=== PATIENT | female | born 1945 | race Caucasian/White ===

== ENCOUNTER 2020-03-16 13:49 | Observation (INO) | payer MEDICARE, OTHER, SELFPAY ==
[2020-03-16] VITALS (15 sets, daily range): BP systolic 138–189; BP diastolic 67–84; PULSE 68–78; RESP 11–50; TEMP 36.9; O2SAT 91–95; BMI 31.4
--- NOTE | 2020-03-16 | DI.MRI.S_ITS ---
PROCEDURE: MR STROKE Pre- and post-contrast brain MRI, non-contrast brain MR angiogram, pre- and postcontrast neck MR angiogram INDICATIONS: Weakness, aphasia suspicious for a CVA TECHNIQUE: Brain: Noncontrast axial T1 spin echo, axial T2 fast spin echo, sagittal and axial FLAIR, coronal T2 fast spin echo, axial gradient echo, axial diffusion and ADC through the brain. After the administration of contrast, axial 3D VIBE of the cranial vasculature and brain. Brain MRA: Non-contrast 3-D time of flight MR angiogram, with multiple zflderq-mztkuimgb-pihteckrjn (MIP) reformats performed. Neck MRA: Axial and sagittal TruFISP through the neck. Coronal dynamic MR angiogram during administration of contrast in the arterial and venous phases, with 3-dimenstional rmxtxob-tflzzziei-igpowyasvq (MIP) reformats constructed from subtraction images. COMPARISON: None. FINDINGS: Image quality: Degraded by motion artifact BRAIN: CSF spaces: Ventricles are normal in size and shape. Basal cisterns are patent. No extra-axial fluid collections. Brain: No intracranial bleeds or mass effects. Scattered small white matter changes, probably represent chronic microvascular ischemic disease, versus statistically less likely demyelination or other infectious, inflammatory, neurodegenerative etiology, technically nonspecific. [place]-white matter interface is normal. Diffusion weighted images show no acute ischemic insults. Brainstem appears normal. Normal intravascular flow voids are present. No abnormal intracranial enhancement. Skull and face: Calvarial marrow signal is normal. Orbits appear normal. Sinuses: Sinuses and mastoids are clear. BRAIN MR ANGIOGRAM: Anterior circulation: Intracranial internal carotid arteries are normal in size and enhancement. The flow within the paired anterior cerebral arteries is normal and symmetric. The flow within the middle cerebral arteries is normal and symmetric. The anterior communicating artery is seen. No stenoses, occlusions, or aneurysms. Posterior circulation: Dominant right vertebral artery incidentally noted. Basilar artery unremarkable. origin of the right [employer]. The flow within the posterior cerebral arteries is normal and symmetric. No stenoses, occlusions, or aneurysms. NECK MR ANGIOGRAM: Carotids: Great vessels demonstrate a conventional anatomy as they arise from the aortic arch. The origins of the common carotid arteries appear patent. The calibers and courses of both common carotid arteries are normal. The bifurcation regions appear normal bilaterally. The internal carotid arteries demonstrate normal course and caliber. Posterior circulation: The origins of the vertebral arteries appear patent. More superior portions of both vertebral arteries demonstrate normal course and caliber, and join to form a normal appearing basilar artery. Miscellaneous: Subclavian arteries appear patent. Pre-contrast images through the neck show no soft tissue abnormalities. IMPRESSION: BRAIN MRI: No evidence of acute ischemia. Diffuse small white matter changes, probably represent chronic microvascular ischemic disease, versus statistically less likely demyelination or other infectious, inflammatory, neurodegenerative etiology, technically nonspecific. BRAIN MR ANGIOGRAM: No intracranial focal stenosis or occlusion. NECK MR ANGIOGRAM: No hemodynamically significant internal carotid artery stenosis identified. Incidentally noted dominant right vertebral artery. Dictated by: Shin Rene M.D. on 03/17/2020 at 15:46 Approved by: Shin Rene M.D. on 03/17/2020 at 15:54
--- NOTE | 2020-03-16 13:53 | DI.CT.S_ITS ---
PROCEDURE: CT STROKE INDICATIONS: stroke vs TIA, Left facial droop, increased confusion TECHNIQUE: Noncontrast 4.5 mm thick angled axial sections acquired from the foramen magnum to the vertex, with coronal reformats. For radiation dose reduction, the following was used: automated exposure control, adjustment of mA and/or kV according to patient size. COMPARISON: None. FINDINGS: Image quality: Excellent. CSF spaces: Basal cisterns are patent. No extra-axial fluid collections. The ventricles are symmetric in size and shape. Brain: No intracranial bleeds or masses. There is cerebral volume loss for age, with resultant ventricular and sulcal prominence. There are periventricular and deep white matter chronic small vessel ischemic changes. There is intracranial internal carotid artery atherosclerosis. Skull and face: Calvarium and visualized facial bones appear intact, without suspicious lesions. Sinuses: Visualized sinuses and mastoids are clear. IMPRESSION: No trauma found, no hemorrhage or mass lesion identified. At this time there is no identified area of ischemic injury. This study fulfills neurological imaging criteria for inclusion or exclusion of acute stroke therapies based on available published neurological guidelines. Dictated by: Oc Hinson M.D. on 03/16/2020 at 14:02 Approved by: Oc Hinson M.D. on 03/16/2020 at 14:03
[2020-03-16 14:01] LABS: Add Manual Diff / Slide Review NO; Basophils Absolute Auto 0 /uL (0-100); Basophils Percent Auto 0.6 % (0-2); Eosinophils Absolute Auto 100 /uL (0-450); Eosinophils Percent Auto 1.2 % (2-4); Hematocrit 36.1 % (36-46); Hemoglobin 11.7 g/dL (12.0-16.0); Lymphocytes Absolute Auto 1200 /uL (1100-4500); Lymphocytes Percent Auto 17.8 % (25-40); Mean Corpuscular HGB Conc 32.4 % (30-36); Mean Corpuscular Volume 92.5 fL (80-100); Monocytes Absolute Auto 800 /uL (0-900); Monocytes Percent Auto 12.9 % (3-14); Neutrophils Absolute Auto 4400 /uL (1500-7000); Neutrophils Percent Auto 67.5 % (50-75); Platelet Count 330 X10^3/uL (150-400); Red Cell Distribution Width 13.7 % (11.6-14.8); White Blood Cell Count 6.5 X10^3/uL (4.5-11.0)
[2020-03-16 14:08] LABS: Prothrombin Time 11.3 SECONDS (10.1-12.7)
[2020-03-16 14:11] LABS: PTT Partial Thromboplastin Tim 31 SECONDS (26.4-36.2)
[2020-03-16 14:16] LABS: Alanine Aminotransferase 4 IU/L (<35); Albumin 4.4 g/dL (3.5-5.0); Albumin Globulin Ratio 1.4 (1.0-2.8); Alkaline Phosphatase 77 U/L (38-126); Aspartate Aminotransferase 17 IU/L (14-36); BUN Creatinine Ratio 24.5 (6-22); Bilirubin Total 0.7 mg/dL (0.2-1.3); Blood Urea Nitrogen 24 mg/dL (7-17); Carbon Dioxide 33 mmol/L (22-32); Chloride 103 mmol/L (98-107); Estimated Glomerular Filt Rate 55.5 mL/min (>60); Globulin 3.2 g/dL (1.7-4.1); Glucose 105 mg/dL (80-110); HEMOLYSIS < 15 (0-50); Potassium 4.7 mmol/L (3.4-5.1); Sodium 141 mmol/L (137-145); Total Protein 7.6 g/dL (6.3-8.2)
--- NOTE | 2020-03-16 16:22 | ED_ITS ---
HPI - Neuro Symptoms/Deficit General Chief Complaint: Neuro Symptoms/Deficit Stated Complaint: Code Stroke Time Seen by Provider: 03/16/20 13:53 Source: patient and EMS Mode of arrival: EMS Limitations: no limitations History of Present Illness HPI Narrative: 74-year-old woman from [facility], brought in by medics with reports of left facial droop and slurring speech. She has a history of Parkinson's disease and is followed by a primary care physician in [place]. Patient feels that her symptoms started yesterday with increasing overall weakness and difficulty expressing herself. She presumed it was secondary to her Parkinson's disease and did not mention it to anybody. She was seen by a caregiver this morning at 10:30 a.m. who felt that she was at her baseline as he was giving her her usual morning medications. When he checked on her at noon he felt that her speech was slurred and she had a left facial droop and 911 was called. Medics confirm significant dysarthria and facial droop she is may be able to move all extremities but complains that she is weak and feels like she could not walk. Upon arrival in the emergency room both the facial droop and the dysarthria are improving and within an hour and a half a being in the emergency department those symptoms have resolved completely. She still feels that she is overall weak and would have difficulty walking. Her exam is complic ated by her baseline Parkinson's disease and it is unclear if her mild weakness is worse. On Anticoagulants: No Related Data Home Medications Medication Instructions Recorded Confirmed acetaminophen 500 mg PO Q6H PRN 03/16/20 03/16/20 baclofen 10 mg PO TID 03/16/20 03/16/20 bupropion HCl 100 mg PO BID 03/16/20 03/16/20 carbidopa-levodopa 1 tab PO Q4H 03/16/20 03/16/20 carbidopa-levodopa 1 tab PO Q8HR PRN 03/16/20 03/16/20 carbidopa-levodopa 2 tab PO QPM 03/16/20 03/16/20 citalopram 20 mg PO DAILY 03/16/20 03/16/20 furosemide 20 mg PO DAILY 03/16/20 03/16/20 gabapentin 300 mg PO TID 11/03/20 11/03/20 levodopa 84 mg INHALATION 5XD 03/16/20 03/16/20 loratadine 10 mg PO DAILY 03/16/20 03/16/20 naproxen sodium [Aleve] 220 mg PO Q8H PRN 03/16/20 03/16/20 rotigotine 4 mg TRANSDERMAL DAILY 03/16/20 03/16/20 trimethobenzamide 300 mg PO Q8HR 03/16/20 03/16/20 Allergies Allergy/AdvReac Type Severity Reaction Status Date / Time acetaminophen [From Percocet] Allergy Verified 03/16/20 14:02 oxycodone [From Percocet] Allergy Verified 03/16/20 14:02 Review of Systems Review of Systems Narrative: Pertinent positive and negative findings as per HPI Remainder of review of systems is otherwise unremarkable for Constitutional: Fevers, chills, ENT: No sore throat, neck pain, ear pain CV: Chest pain, palpitations, dyspnea on exertion Respiratory: Cough, wheeze, dyspnea GI: Nausea, vomiting, diarrhea, change in bowel habits, black or bloody stools : Dysuria, hematuria, flank pain Skin: Rashes, nonhealing lesions Patient History Medical History Parkinsons disease (Acute) Exam Narrative Exam Narrative: General: in no acute distress. Mild dysarthria, slight left facial droop HEENT: Moist mucous membranes, normal sclera with reactive pupils, Neck: No JVD, supple Respiratory: Lungs are clear to auscultation, no wheezing no rales no rhonchi. Full and symmetrical air movement Cardiac: Regular rate and rhythm no murmurs no bruits Abdomen: Soft nontender good bowel tones, no flank pain Skin: Warm and dry, no rashes Neurologic: Parkinsonian tremor and rigidity with flat facial affect. She is able to move all extremities and in light of her baseline neurologic difficulties it is difficult to tell if she has new neurologic findings. Her right side does seem to be slightly more weak than the left side. Extremities: No trauma, well perfused Psych: Cooperative, NIH Stroke Scale/Score (NIHSS) from [email or web address] on 03/16/2020 RESULT SUMMARY: 5 points NIH Stroke Scale INPUTS: 1A: Level of consciousness ?> 0 = Alert; keenly responsive 1B: Ask month and age ?> 0 = Both questions right 1C: 'Blink eyes' & 'squeeze hands' ?> 0 = Performs both tasks 2: Horizontal extraocular movements ?> 0 = Normal 3: Visual blackburn ?> 0 = No visual loss 4: Facial palsy ?> 1 = Minor paralysis (flat nasolabial fold, smile asymmetry) 5A: Left arm motor drift ?> 0 = No drift for 10 seconds 5B: Right arm motor drift ?> 1 = Drift, but doesn't hit bed 6A: Left leg motor drift ?> 0 = No drift for 5 seconds 6B: Right leg motor drift ?> 1 = Drift, but doesn't hit bed 7: Limb Ataxia ?> 1 = Ataxia in 1 Limb 8: Sensation ?> 0 = Normal; no sensory loss 9: Language/aphasia ?> 0 = Normal; no aphasia 10: Dysarthria ?> 1 = Mild-moderate dysarthria: slurring but can be understood 11: Extinction/inattention ?> 0 = No abnormality Repeat NIH at 5:30 0 Symptoms resolved Initial Vital Signs Initial Vital Signs: Vital Signs Temperature 98.5 F 03/16/20 13:49 Pulse Rate 78 03/16/20 13:49 Respiratory Rate 20 03/16/20 13:49 Blood Pressure 189/84 H 03/16/20 13:49 Pulse Oximetry 94 03/16/20 13:49 Course Orders Ordered: ED Orders 03/16/20 13:45 Complete Blood Count AUTO DIFF Stat Comprehensive Metabolic Panel Stat Partial Thromboplastin Time Stat Prothrombin Time INR Stat 03/16/20 13:53 CT Stroke Stat Urinalysis and Microscopic Stat 03/16/20 14:00 EKG-12 Lead Stat 03/16/20 16:53 COVID19 -ED/INPAT/OR/L&D Stat Sodium Chloride (Normal Saline 0.9%) 1,000 mls @ 150 mls/hr IV CONT SAMANTHA Vital Signs Vital signs: Vital Signs - 8 hr 03/16/20 13:49 03/16/20 13:55 03/16/20 13:59 Temperature 98.5 F Pulse Rate 78 77 76 Respiratory Rate 20 50 H Blood Pressure 189/84 H 189/84 H Pulse Oximetry 94 93 93 03/16/20 14:00 03/16/20 14:30 Temperature Pulse Rate 76 74 Respiratory Rate 41 H 25 H Blood Pressure Pulse Oximetry 95 94 MDM - Neuro Symptoms/Deficit Medical Records Attestation: I reviewed the patient's medical records. Lab Data Attestation: I reviewed the patient's lab results. Result diagrams: 03/16/20 13:45 03/16/20 13:45 Labs: Lab Results 03/16/20 03/16/20 03/16/20 Range/Units 13:45 13:45 13:45 WBC 6.5 (4.5-11.0) X10^3/uL RBC 3.90 L (4.0-5.2) X10^6/uL Hgb 11.7 L (12.0-16.0) g/dL Hct 36.1 (36-46) % MCV 92.5 (80-100) fL MCH 30.0 (26-34) PG MCHC 32.4 (30-36) % RDW 13.7 (11.6-14.8) % Plt Count 330 (150-400) X10^3/uL Neut % (Auto) 67.5 (50-75) % Lymph % (Auto) 17.8 L (25-40) % [place] % (Auto) 12.9 (3-14) % Eos % (Auto) 1.2 L (2-4) % Baso % (Auto) 0.6 (0-2) % Neut # (Auto) 4400 (7542-6745) /uL Lymph # (Auto) 1200 (2798-7919) /uL [place] # (Auto) 800 (0-900) /uL Eos # (Auto) 100 (0-450) /uL Baso # (Auto) 0 (0-100) /uL PT 11.3 (10.1-12.7) SECONDS INR 1.0 (0.9-1.3) APTT 31 (26.4-36.2) SECONDS Sodium 141 (137-145) mmol/L Potassium 4.7 (3.4-5.1) mmol/L Chloride 103 (98-107) mmol/L Carbon Dioxide 33 H (22-32) mmol/L BUN 24 H (7-17) mg/dL Creatinine 0.98 (0.52-1.04) mg/dL Estimated GFR 55.5 L (>60) mL/min BUN/Creatinine Ratio 24.5 H (6-22) Glucose 105 (80-110) mg/dL Calcium 9.0 (8.4-10.2) mg/dL Total Bilirubin 0.7 (0.2-1.3) mg/dL AST 17 (14-36) IU/L ALT 4 (<35) IU/L Alkaline Phosphatase 77 (38-126) U/L Total Protein 7.6 (6.3-8.2) g/dL Albumin 4.4 (3.5-5.0) g/dL Globulin 3.2 (1.7-4.1) g/dL Albumin/Globulin Ratio 1.4 (1.0-2.8) Point of Care Testing Glucose POC [address] scan - head: Radiologist's Impression: FINDINGS: Image quality: Excellent. CSF spaces: Basal cisterns are patent. No extra-axial fluid collections. The ventricles are symmetric in size and shape. Brain: No intracranial bleeds or masses. There is cerebral volume loss for age, with resultant ventricular and sulcal prominence. There are periventricular and deep white matter chronic small vessel ischemic changes. There is intracranial internal carotid artery atherosclerosis. Skull and face: Calvarium and visualized facial bones appear intact, without suspicious lesions. Sinuses: Visualized sinuses and mastoids are clear. IMPRESSION: No trauma found, no hemorrhage or mass lesion identified. At this time there is no identified area of ischemic injury. This study fulfills neurological imaging criteria for inclusion or exclusion of acute stroke therapies based on available published neurological guidelines. Dictated by: Oc Hinson M.D. on 03/16/2020 at 14:02 ECG Data Attestation: I personally reviewed and interpreted this ECG as follows: Interpretation: Sinus rhythm at a rate of 77 Normal intervals, normal axis No acute ischemic changes MDM Narrative Medical decision making narrative: 74-year-old woman with moderately severe Parkinson's disease presents with probable stroke. Symptoms likely began yesterday however obviously worsened by noon today and have resolved by 5:00 p.m.. Because symptoms are resolving and of the diagnostic uncertainty she is not a tPA candidate She will be admitted to the hospitalist service to complete her stroke workup. There is no evidence of infection, tumors or masses in her brain or acute coron faby syndrome. She is willing to be admitted in complete stroke workup at this time. Care is reviewed with Dr. Jimenez, hospitalist who will admit the patient. Discharge Plan Departure Patient Disposition: Admitted As Inpatient Clinical Impression: Cerebrovascular accident Qualifiers: CVA mechanism: unspecified Qualified Code(s): I63.9 - Cerebral infarction, unspecified Admit Date/Time: 03/16/20 18:05 Admit Provider: Rosina Jimenez
[2020-03-16] MEDS: SODIUM CHLORIDE 0.9% 1,000 ML 150 ML IV (18:20)
--- NOTE | 2020-03-16 18:47 | PC.NURSE ---
pulled mask off patient to look for droop, notices she had food residue, wiped pt lips clean.
[2020-03-16 18:59] LABS: COVID19 -Nasal RAPID Negative (Negative)
--- NOTE | 2020-03-16 21:03 | PC.NURSE ---
Admit note: Faye admitted to rm 207 from ER. Float RN in to do admission assessments. Patient is soft spoken, speech somewhat slurred, daughter states this can be normal due to flare-ups from Parkinson's. Patient denies difficulty swallowing. Refused for me to do a bedside swallow evaluation at this time. She said they already did it. Cynthia Rene in room to see patient. Patient refused skin assessment, saying I want to sleep for a while-I don't want you to. I called ER to inquire about nurse swallow evaluation, Aishwarya said that RN who cared for this patient did not do a bedside swallow evaluation.
--- NOTE | 2020-03-16 21:17 | PM.HP.1 ---
History of Present Illness History of Present Illness Date Patient Seen: 03/16/20 Time Patient Seen: 20:45 Chief complaint: Code Stroke Narrative: Faye Harris is a 74 y.o. female with Parkinson's and resident of [facility] was in her usual state of health brought in by EMS with reports of left facial droop and slurring speech. She states it started yesterday (03/15) with difficulty speaking and when she woke up this morning, she was very weak and unable to get out of bed. She denies unilateral weakness, just stated she was unable to move. She has a history of Parkinson's disease and is followed by a primary care physician(Dr. Porter) in [place] and sees a manager games at [facility] in [place]. Patient feels that her symptoms started yesterday with increasing overall weakness and difficulty expressing herself. Per the ED note, she presumed it was secondary to her Parkinson's disease and did not mention it to anybody. She was seen by a caregiver this morning at 10:30 a.m. who felt that she was at her baseline as he was giving her her usual morning medications. When he checked on her at noon he felt that her speech was slurred and she had a left facial droop and 911 was called. Medics confirmed significant dysarthria and facial droop she is may be able to move all extremities but complains that she is weak and feels like she could not walk. Upon arrival in the emergency room both the facial droop and the dysarthria began to improve and within an hour and a half a being in the emergency department those symptoms have resolved completely. She still feels that she is overall weak and would have difficulty walking. Her exam is complicated by her baseline Parkinson's disease and it is unclear if her weakness is worse. She states she is very sleepy, and that her speech is back to normal. She ambulates with a walker normally. She denies difficulty swallowing, visual changes, headache, difficulty breathing, chest pain, abdominal pain, dysuria, diarrhea or constipation. She has chronic weakness from her Parkinson's disease which is worsened over the last day. She does not endorse any depression and is very pleased with the recent relocation to her current assisted living facility. She is not established locally because she just relocated from an assisted living facility in [facility] to be closer to her daughter a week ago. CT of the brain reported the following findings: No intracranial bleeds or masses. There is cerebral volume loss for age, with resultant ventricular and sulcal prominence. There are periventricular and deep white matter chronic small vessel ischemic changes. There is intracranial internal carotid artery atherosclerosis. Patient is afebrile, blood pressure 162/78, heart rate 70, respiratory rate 11, oxygen saturation of 95% on room air, she weighs 85.7 kg with a BMI of 31.4. CBC largely within normal limits, coag studies normal, sodium is 141, potassium 4.7, chloride 103, bicarb 33, BUN 24, creatinine 0.98, with a GFR 55.5, calcium is 9.0, magnesium 2.3, liver enzymes essentially within normal limits, TSH is 1.9, and COVID PCR is negative Patient History Medical History Parkinsons disease (Acute) Family & Social History Family History (Updated 03/16/20 @ 23:02 by TESFAYE Lee) Mother Lung cancer Father Myocardial infarction Social History: Prior Living Arrangements [facility] Safety & Behavioral: Feels Safe in Current Yes Environment Been Physically Hurt or No Threatened By a Person Suicidal Ideation Description None Suicide Plan Description No Plan Tobacco & Substance use: Smoking Status Former smoker alcohol intake never Substance Use Type does not use Meds Home Medications and Allergies Home Medications Medication Instructions Recorded Confirmed Type acetaminophen 500 mg PO Q6H PRN 03/16/20 03/16/20 History baclofen 10 mg PO TID 03/16/20 03/16/20 History bupropion HCl 100 mg PO BID 03/16/20 03/16/20 History carbidopa-levodopa 1 tab PO Q4H 03/16/20 03/16/20 History carbidopa-levodopa 1 tab PO Q8HR PRN 03/16/20 03/16/20 History carbidopa-levodopa 2 tab PO QPM 03/16/20 03/16/20 History citalopram 20 mg PO DAILY 03/16/20 03/16/20 History furosemide 20 mg PO DAILY 03/16/20 03/16/20 History gabapentin 300 mg PO TID 03/16/20 03/16/20 History levodopa 84 mg INHALATION 5XD 03/16/20 03/16/20 History loratadine 10 mg PO DAILY 03/16/20 03/16/20 History naproxen sodium [Aleve] 220 mg PO Q8H PRN 03/16/20 03/16/20 History rotigotine 4 mg TRANSDERMAL DAILY 03/16/20 03/16/20 History trimethobenzamide 300 mg PO Q8HR 03/16/20 03/16/20 History Allergies Allergy/AdvReac Type Severity Reaction Status Date / Time acetaminophen [From Percocet] Allergy Verified 03/16/20 14:02 oxycodone [From Percocet] Allergy Verified 03/16/20 14:02 Review of Systems Review of Systems ROS: Yes All systems reviewed with the patient and are negative except as otherwise documented Exam Vital Signs (past 8 hours): - 03/16/20 13:49 03/16/20 13:55 03/16/20 13:59 Temperature 98.5 F Pulse Rate 78 77 76 Respiratory Rate 20 50 H Blood Pressure 189/84 H 189/84 H Pulse Oximetry 94 93 93 03/16/20 14:00 03/16/20 14:30 03/16/20 14:46 Temperature Pulse Rate 76 74 74 Respiratory Rate 41 H 25 H 16 Blood Pressure 138/67 Pulse Oximetry 95 94 95 03/16/20 15:00 03/16/20 15:30 03/16/20 16:00 Temperature Pulse Rate 75 73 68 Respiratory Rate 18 21 22 Blood Pressure Pulse Oximetry 94 91 93 03/16/20 16:30 03/16/20 17:00 03/16/20 17:30 Temperature Pulse Rate 72 74 70 Respiratory Rate 22 13 13 Blood Pressure Pulse Oximetry 95 95 94 03/16/20 18:00 03/16/20 18:19 03/16/20 18:30 Temperature Pulse Rate 72 72 70 Respiratory Rate 15 12 11 L Blood Pressure 165/77 H 162/78 H Pulse Oximetry 95 95 95 Oxygen Delivery Method Room Air Narrative Exam Narrative: Gen: Alert, oriented, ill appearing 74 y.o. female, appears very weak HEENT: normocephalic, atraumatic, conjunctiva clear, sclera non-icteric, oral mucosa pink and moist, flattened nasal-labial fold Neck: supple, full ROM, no JVD, trachea is midline Resp: Lungs CTA, non-labored breathing CV: RRR, no murmur or rubs Abd: soft, non-tender, normoactive BTs Skin: no lesions or rashes, dry and intact Neuro: Alert and oriented X 4 w/no focal deficits. Speech clear and coherent. Extremities: Weak and needs assistance with moving in bed, slowly moves all 4 extremities, is normally ambulatory with a walker, negative Chuck?s sign Psyche: normal mood and affect. Objective Labs Result Diagrams: 03/16/20 13:45 03/16/20 13:45 Labs: Laboratory Results - last 24 hr 03/16/20 03/16/20 03/16/20 13:45 13:45 13:45 WBC 6.5 RBC 3.90 L Hgb 11.7 L Hct 36.1 MCV 92.5 MCH 30.0 MCHC 32.4 RDW 13.7 Plt Count 330 Neut % (Auto) 67.5 Lymph % (Auto) 17.8 L [place] % (Auto) 12.9 Eos % (Auto) 1.2 L Baso % (Auto) 0.6 Neut # (Auto) 4400 Lymph # (Auto) 1200 [place] # (Auto) 800 Eos # (Auto) 100 Baso # (Auto) 0 PT 11.3 INR 1.0 APTT 31 Sodium 141 Potassium 4.7 Chloride 103 Carbon Dioxide 33 H BUN 24 H Creatinine 0.98 Estimated GFR 55.5 L BUN/Creatinine Ratio 24.5 H Glucose 105 Calcium 9.0 Total Bilirubin 0.7 AST 17 ALT 4 Alkaline Phosphatase 77 Total Protein 7.6 Albumin 4.4 Globulin 3.2 Albumin/Globulin Ratio 1.4 COVID-19 PCR 03/16/20 18:35 WBC RBC Hgb Hct MCV MCH MCHC RDW Plt Count Neut % (Auto) Lymph % (Auto) [place] % (Auto) Eos % (Auto) Baso % (Auto) Neut # (Auto) Lymph # (Auto) [place] # (Auto) Eos # (Auto) Baso # (Auto) PT INR APTT Sodium Potassium Chloride Carbon Dioxide BUN Creatinine Estimated GFR BUN/Creatinine Ratio Glucose Calcium Total Bilirubin AST ALT Alkaline Phosphatase Total Protein Albumin Globulin Albumin/Globulin Ratio COVID-19 PCR Negative Assessment & Plan Assessment & Plan narrative: Faye Harris is a 74 y.o. female with Parkinson's disease will be admitted for further workup and evaluation for an acute CVA. Evaluation is difficult due to her current deficits associated with Parkinson's disease. Suspected TIA versus stroke, acute, present on admission -Cardiac telemetry -NIH scoring and neuro checks q 4 hours -hold dual antiplatlet therapy due to inability to determine NIH score and until she has been ruled out for an intercranial bleed -MR stroke scheduled for 03/17 -Complete Echo w/bubble studyfor 03/17 -Patient is NPO due to appearing to aspirate on oral medications -PT/OT/ST evaluation Hypertension, acute with an admission bp of [], present on admission -Allow for permissive hypertension of 220/110 HR 60 to allow for brain perfusion -labetolol Risk stratification -Fasting lipid panel -A1c 5.7% Parkinson's disease, chronic and present on admission -Continue home dose of carbadopa/levadopa 10/100 q8 hours prn parkinsonian symptoms -Continue home dose of carbadopa/levadopa 25/250 po q 4 hours -Continue home dose of carbadopa/levadopa 2 tabs q pm Risk stratification -A1c is 5.7 -TSH within normal limits -Fasting lipid panel is pending for 499. VTE prophylaxis: Wells risk score: 1 Bilateral SCDs, shart pharmacological anticoagulation once MRI rules out intercranial bleed Consults: none Patient is admitted under inpatient status with expected length of stay greater than 2 midnights due to severity of presenting symptoms, risk of adverse event, and complexity of treatment plan. FEN: NS at 84 ml/hour, NPO, BMP and magnesium in the am. Dispo: Unknown at this time, consider intensive physical therapy at her assisted living facility or possible inpatient rehab Code Status: Full code as discussed with patient
[2020-03-16 21:30] LABS: Magnesium 2.3 mg/dL (1.6-2.3)
[2020-03-16 21:38] LABS: Hemoglobin A1C% w Est Avg Glu 5.7 % (4.0-6.0)
[2020-03-16] MEDS: CARBIDOPA-LEVODOPA 10/100 TABLET 1 EACH PO (22:28)
[2020-03-16] MEDS: BACLOFEN 10 MG TABLET PO (22:29)
[2020-03-16] MEDS: GABAPENTIN 300 MG CAPSULE PO (22:29)
[2020-03-16] MEDS: CARBIDOPA-LEVODOPA 25/100 TABLET 1 EACH PO (22:29)
[2020-03-16] MEDS: ACETAMINOPHEN 325 MG TABLET 650 MG PO (22:29)
[2020-03-16] MEDS: buPROPion SR 100 MG TAB PO (22:30)
[2020-03-16] MEDS: CARBIDOPA-LEVODOPA ER 50/200 TABLET 2 EACH PO (22:30)
[2020-03-16] MEDS: ATORVASTATIN 20 MG TABLET 40 MG PO (22:30)
--- NOTE | 2020-03-16 22:53 | PC.NURSE ---
Addendum entered by Albertina Red R.N. 03/16/20 23:29: Cynthia CARLIN aware of result of swallow evaluation. Original Note: Patient passed bedside swallow evaluation, but then when I gave her a sip of water she coughed a few times, face turning red. Able to clear throat. After a few minutes I gave her parkinson's meds, and pain meds one at-a-time with small bite of chocolate pudding. Able to swallow meds with pudding with no difficulty. After med pass I made patient NPO and ordered ST to see her in the morning.
[2020-03-17] VITALS: BP 137/58; PULSE 67; RESP 18; TEMP 36.3; O2SAT 92
--- NOTE | 2020-03-17 | DI.ECHO.S_ITS ---
[place] +---------+ [facility] +---------+ : : [address] : : : : [id number] : : : : Phone: [phone]+ Echocardiogram Report + + :Name: QUINTON TINOCO Study Date: 03/17/2020 Height: 65 in : :[facility] Weight: 189 lb : : Gender: Female BSA: 1.9 m2 : :: 1945 Age: 74 yrs BP: 162/78 mmHg: :Reason For Study: CVA : :Ordering Physician: USMAN MEADOWS : :[employer] Performed By: Justine Reina : :Referring: USMAN MEADOWS : + + Interpretation Summary Bubble study done per request on echo order. The ejection fraction is estimated to be 60-65%. The ascending aorta is mildly enlarged. There is no Doppler evidence for an interatrial shunt. The interatrial septum bows toward right atrium consistent with elevated left atrial pressure. Procedure: A two-dimensional transthoracic echocardiogram with color flow and Doppler was performed. The study quality was technically adequate. There is no prior echocardiogram noted for this patient. A saline contrast injection was performed to assess for cardiac shunting. The injection was performed through an intravenous line in the left arm. Left Ventricle: The left ventricle is normal in size and wall thickness. The ejection fraction is estimated to be 60-65%. Left ventricular wall motion is normal. Diastolic parameters suggest a relaxation abnormality of the left ventricle, consistent with probable normal filling pressures. Right Ventricle: The right ventricle is normal in size and function. Atria: The left atrium is mildly dilated. Right atrial size is normal. There is no Doppler evidence for an interatrial shunt. The interatrial septum bows toward right atrium consistent with elevated left atrial pressure. Mitral Valve: The mitral valve is normal in structure and function. There is trace mitral regurgitation. Aortic Valve: The aortic valve is trileaflet. The aortic valve opens well. There is no aortic valve stenosis. There is trace aortic regurgitation. Tricuspid Valve: The tricuspid valve is normal in structure and function. There is trace tricuspid regurgitation. Pulmonary artery pressures cannot be estimated because of the lack of a measurable TR jet velocity but the IVC suggests a CVP of around 3 mmHg. Pulmonic Valve: The pulmonic valve leaflets are thin and pliable; valve motion is normal. There is trace pulmonic regurgitation. Great Vessels: The aortic root is normal size. The ascending aorta is mildly enlarged. The IVC is of normal diameter and collapses greater than 50% with a sniff. This suggests a low right atrial pressure of 3 mm Hg. Pericardium/ Pleura There is no pericardial effusion. There is no pleural effusion. MMode/2D Measurements & Calculations LVIDd: 4.6 cm LVOT diam: 2.1 cm LVIDs: 3.1 cm Ao root diam: 3.1 cm FS: 34.2 % asc Aorta Diam: 3.7 cm EPSS: 0.58 cm IVSd: 0.80 cm LVPWd: 0.83 cm LV mcgregor. diameter/BSA (cm/m^2): 2.4 LV sys. diameter/BSA (cm/m^2): 1.6 LA A2 area: 20.8 cm2 RA long axis: 4.5 cm LA A4 area: 18.0 cm2 RA area: 14.7 cm2 LA length (vol): 4.8 cm RA vol: 41.0 ml LA vol: 66.3 ml RA : 21.2 ml/m2 LA vol index: 34.3 ml/m2 IVC diam: 1.7 cm RVD1 (basal): 3.6 cm TAPSE: 2.3 cm Doppler Measurements & Calculations Ao V2 max: 163.8 cm/sec LVOT Max Gabriel: 115.4 cm/sec Ao V2 mean: 107.4 cm/sec LV V1 max P.3 mmHg Ao max P.7 mmHg LV V1 VTI: 24.3 cm Ao mean P.4 mmHg SHIRA(I,D): 2.5 cm2 Ao V2 VTI: 34.1 cm SHIRA(V,D): 2.5 cm2 sev ratio: 0.71 SHIRA indexed to BSA (cm^2/m^2): 1.3 MV E max gabriel: 85.8 cm/sec PA V2 max: 66.2 cm/sec MV A max gabriel: 78.7 cm/sec PA V2 mean: 47.3 cm/sec MV E/A: 1.1 PA mean P.95 mmHg Med Peak E' Gabriel: 5.5 cm/sec PA pr(Accel): 32.8 mmHg E/E' med: 15.7 Lat Peak E' Gabriel: 7.7 cm/sec E/E' lat: 11.2 E/e' average: 13.4 MV dec time: 0.19 sec SVLVOT): 86.0 ml Reading Physician:12:44 PM
[2020-03-17] MEDS: SODIUM CHLORIDE 0.9% 1,000 ML 84 ML IV (00:03)
[2020-03-17] MEDS: CARBIDOPA-LEVODOPA 25/100 TABLET 1 EACH PO ×3 (00:03→08:09)
[2020-03-17] MEDS: ACETAMINOPHEN 325 MG TABLET 650 MG PO ×2 (04:36→20:12)
[2020-03-17 05:45] VITALS: BP 131/64; PULSE 65; RESP 16; TEMP 36.7; O2SAT 94
[2020-03-17 06:20] LABS: Add Manual Diff / Slide Review NO; Basophils Absolute Auto 0 /uL (0-100); Basophils Percent Auto 0.7 % (0-2); Eosinophils Absolute Auto 100 /uL (0-450); Eosinophils Percent Auto 1.2 % (2-4); Hematocrit 31.1 % (36-46); Hemoglobin 10.1 g/dL (12.0-16.0); Lymphocytes Absolute Auto 1000 /uL (1100-4500); Lymphocytes Percent Auto 21.6 % (25-40); Mean Corpuscular HGB Conc 32.5 % (30-36); Mean Corpuscular Volume 92.4 fL (80-100); Monocytes Absolute Auto 700 /uL (0-900); Neutrophils Absolute Auto 2800 /uL (1500-7000); Neutrophils Percent Auto 61.5 % (50-75); Platelet Count 267 X10^3/uL (150-400); Red Blood Cell Count 3.37 X10^6/uL (4.0-5.2); Red Cell Distribution Width 13.6 % (11.6-14.8); White Blood Cell Count 4.6 X10^3/uL (4.5-11.0)
[2020-03-17 06:29] LABS: Blood Urea Nitrogen 20 mg/dL (7-17); Calcium 8.3 mg/dL (8.4-10.2); Carbon Dioxide 28 mmol/L (22-32); Chloride 107 mmol/L (98-107); Cholesterol 166 mg/dL (140-199); Estimated Glomerular Filt Rate > 60.0 mL/min (>60); Glucose 86 mg/dL (80-110); HDL Cholesterol 40 mg/dL (40-60); HEMOLYSIS < 15 (0-50); LDL Cholesterol Calculated 103 mg/dL (<100); Magnesium 2.1 mg/dL (1.6-2.3); Potassium 4.1 mmol/L (3.4-5.1); Sodium 139 mmol/L (137-145); Triglycerides 116 mg/dL (35-150)
[2020-03-17 07:27] LABS: RBC Urine None Seen (0-5/HPF)
[2020-03-17 07:29] LABS: Appearance Urine UA CLEAR; Bilirubin Urine UA NEGATIVE (NEGATIVE); Color Urine UA YELLOW; Glucose Urine UA NEGATIVE (Negative); Ketones Urine UA TRACE (NEGATIVE); Leukocyte Esterase Urine UA NEGATIVE (NEGATIVE); Nitrite Urine UA NEGATIVE (Negative); Occult Blood Urine UA NEGATIVE (Negative); Protein Urine UA NEGATIVE (Negative); Urobilinogen Urine UA 0.2 E.U./dL (0.2)
[2020-03-17 07:49] LABS: pH Urine UA 5.5 (4.5-8.0)
[2020-03-17 07:51] LABS: Bacteria Urine Occasional (0-1); Culture Indicated Urine Cult Not Indicated; Squamous Epithelial Cell Urine 5-10 /HPF (0-5/HPF); WBC Urine 0-1/HPF (0-5/HPF)
[2020-03-17] MEDS: GABAPENTIN 300 MG CAPSULE PO ×3 (08:09→20:46)
[2020-03-17] MEDS: CITALOPRAM 10 MG TABLET 20 MG PO (08:09)
[2020-03-17] MEDS: BACLOFEN 10 MG TABLET PO ×3 (08:09→20:45)
[2020-03-17] MEDS: buPROPion SR 100 MG TAB PO ×2 (08:10→20:45)
[2020-03-17 10:24] VITALS: BP 142/71; PULSE 68; RESP 15; TEMP 36.6; O2SAT 93
--- NOTE | 2020-03-17 11:15 | PT-IP ANOTE ---
Attempted to see pt this morning but she was doing echo. Will reattempt in pm.
--- NOTE | 2020-03-17 13:06 | ST.IPIE ---
Visit Care Team Role Provider Type Nely Hampton MD Emergency Provider Physician Referring Provider Specialty: Emergency Medicine Address: [address] [place] [address], [id number] Email: Rosina Jimenez DO Admit Provider Physician Attending Provider Specialty: Internal Medicine Address: [address] [place] [address], [id number] Email: [email or web address] Past Medical History (Last Updated 03/16/20 @ 23:57 by TESFAYE Lee) Hx of cancer of uterus (Acute Medical) Parkinsons disease (Acute Medical) ST IP Initial Evaluation Report TERRAPIN FISHER Clinical Swallow Evaluation Start: 03/17/20 12:41 Freq: Status: Active Protocol: Document 03/17/20 12:41 RAMESH (Rec: 03/17/20 13:06 RAMESH [id number]) Clinical Swallow Evaluation Session Time Visit Start Time 11:40 Visit Stop Time 12:10 Total Visit Minutes 30 Referral Referring Provider TESFAYE Lee Reason for Referral TIA/Stroke Setting Assessment Location Acute Care Visit Type Note Type Initial evaluation Next Note Type Next Note Type Treatment Note Patient Information Identification Type Name,ID Card History Faye Harris is a 74 y.o. female with Parkinson's disease who was brought to ED d/t unilateral weakness, left facial droop, and difficulty speaking. She was admitted to acute floor for further workup and evaluation for an acute CVA. Evaluation is difficult due to her current deficits associated with Parkinson's disease. The pt initially passed Nsg swallow screening but later was observed to cough with water. She was placed on dysphagia diet and NTL pending TERRAPIN FISHER evaluation. Subjective Observations The pt was sitting up in bed and seen immediately following EKG procedure. She reported being tired but willing to participate in swallow evaluation. She stated her speech was terrible today with more slurring than normal . Her voice was very weak throughout the evaluation requiring occasional repetition to be understood. She denied swallow difficulties prior to hospitalization greater than rare coughing with thin liquids. She recently has begun drinking from a straw and consuming medications in pudding. She stated that she typically chews her medications. Reported by Patient Current Diet Dysphagia mechanical,[place] thick liquids Baseline Feeding Method Independent in self-feeding Objective Assessment Mental Status Alert,Responsive,Cooperative, Lethargic Oral Integrity WFL Dentition Within normal limits Lip Function Moderate impairment Observation of Lips at Rest Symmetrical Pucker Reduced range of motion, Reduced strength Lip Retraction Left sided weakness/Drooping Alternating Pucker/Lip Retraction Reduced range of motion, Incoordination Tongue Function Moderate impairment Observations of Tongue at Rest Involuntary movement(s) Tongue Protrusion Involuntary movement(s), Reduced strength Tongue Lateralization Reduced strength Jaw Function Within normal limits Observations of Jaw at Rest Within normal limits Jaw Opening Within normal limits Jaw Closing Within normal limits Jaw Lateralization Within normal limits Hard/Soft Palate Function Moderate impairment Observations of Hard/Soft Palate Within normal limits Nasality Within normal limits Phonation Breathy,Reduced loudness Respiratory Sufficiency Mild impairment Comment The pt had a right side molar extracted last week and is still getting accustomed to chewing without it. Otherwise, dentition is in good condition with both upper and lower front bridges. Lingual strength is moderately reduced , and tremor was observed both at rest and upon protrusion. Minimal elevation of soft palate was observed upon phonation but may be attributed to weak voice. The pt denied nasal regurgitation. Hyolaryngeal elevation and excursion appears to be reduced via palpation. Food and Liquid Trials Position During Assessment Upright (90 degrees) Liquids Trialed Ice chips,Thin Solids Trialed Puree,Dysphagia Mechanical, Mechanical Soft,Regular Administration Type Tea spoon,Straw,Self-feeding, Needs some assistance, Dependent feeding Oral Impairment Mildly impaired Oral Phase Comments Mastication was slow but WNL with good bolus formation. A/P propulsion and swallow trigger appear to be WFL. Good oral clearance. Pharyngeal Impairment Mildly impaired Pharyngeal Phase Comments The pt exhibited mildly wet vocal quality occasionally which cleared with increased vocal loudness and with dry swallow. No other overt s/sx of aspiration were observed. Swallow was occasionally audible, indicating possible reduced coordination. Fatigue/Endurance Mild fatigue Comment Pt was slow to masticate. She self-fed one tsp of pudding upon TERRAPIN FISHER's insistence, with slow lifting of spoon and making initial contact at lower lip. She held the cup for one drink of water with [id number] assistance. Otherwise, she preferred the clinician to feed her. Findings Swallowing Function Oropharyngeal phase dysphagia Severity of Swallow Impairment Mildly impaired Contributing Factors to Swallow Reduced oral strength/ Impairment coordination/sensation Prognosis Good Based on Duration of symptoms/severity Comment The pt presents with mild oropharyngeal dysphagia secondary to generalized weakness and likely contributed by Parkinson's disease. Impact on Safety and Functioning Risk for aspiration Recommendations Instrumental Assessment No Swallowing Treatment Yes Frequency F/U 1-2x Recommended Solids Dysphagia Advanced Recommended Liquids Thin Safety Precautions/Swallowing Reduce distractions,Remain Recommendations upright (90 degrees) during all oral intake,Upright position at least 30 minutes after meals,Small bites and sips when eating,Slow rate; swallow between bites,Set-up assistance,1 to 1 feeding assistance,Strict oral care after intake Medication Recommendations Whole in Carrier Comments Pt may require SNF, pending ongoing assessment Education Patient/Caregiver Education Described results of evaluation,Patient expressed understanding of evaluation, Patient expressed agreement with goals & treatment plans, Family/caregivers expressed understanding of evaluation, Family/caregivers expressed agreement with goals & treatment plans,Patient expressed understanding of safety precautions,Patient expressed understanding of feeding recommendations,Family /caregivers expressed understanding of safety precautions,Family/caregivers expressed understanding of feeding recommendations Goals Short-term Goals 1. The pt will participate in further assessment of oral- motor speech to guide POC. 2. The pt will independently follow safe swallow strategies to reduce risk of aspiration. Long-term Goals 1. The pt will tolerate least restrictive diet to meet her nutrition and hydration needs. 2. The pt will demonstrate speech intelligibility adequate to participate in conversations and decisions related to her medical care.
--- NOTE | 2020-03-17 13:47 | OT.IP.EVAL ---
Past Medical History (Last Updated 03/16/20 @ 23:57 by TESFAYE Lee) Hx of cancer of uterus (Acute) Parkinsons disease (Acute) Surgical History (Last Updated 03/16/20 @ 23:57 by TESFAYE Lee) H/O: hysterectomy (Acute) Hx of tooth extraction (Acute) Hx of total knee replacement (Acute) Occupational Therapy Inpatient Evaluation/Re-Eval M1 PT/OT-IP Prior Functional Status Start: 03/17/20 16:43 Freq: NEEDED Status: Active Protocol: Document 03/17/20 16:43 [facility] (Rec: 03/17/20 17:20 [facility] [id number]) Medical Review Prior Functional Status Communication Independent to state her needs , pt has decreased short term memory and confusion at times. Pt's daughter feels that she is baseline for her cognitive needs. Mobility and Gait Pt daughter states she uses a 4WW to get around. Activities of Daily Living and IADL's Per pt's daughter, pt needs assist for completeness for toileting , LB dressing, and for showers. Prior Functional Level (Other details) Pt just moved to [facility] recently to be closer to her daughter. Social History Living Arrangements Shelter Facility Additional Social History Comment Pt came in to ER due to left facial droop and slurring speech which started on . M2 OT-IP Current Condition Start: 03/17/20 16:43 Freq: Status: Active Protocol: Document 03/17/20 16:43 [facility] (Rec: 03/17/20 17:20 [facility] [id number]) Occupational Therapy Current Condition Current Condition Evaluation Date 03/17/20 Treatment Diagnosis TIA versus CVA Diagnosis Onset Date 03/16/20 M3 OT- IP Subjective and Pain Start: 03/17/20 16:43 Freq: Status: Active Protocol: Document 03/17/20 16:43 [facility] (Rec: 03/17/20 17:20 [facility] [id number]) OT- Subjective Occupational Therapy Visit Type Type Initial Evaluation Visit Start Time 13:05 Visit Stop Time 13:47 Total Visit Minutes 42 Occupational Therapy Visit Comments Patient Comments Pt agreed to do Ot eval, pt's daughter present in the room. OT Pain Assessment Pain When Pain Assessed At Rest Pain Present Pain Present Denied Pain M4 OT- IP ADL's Start: 03/17/20 16:43 Freq: Status: Active Protocol: Document 03/17/20 16:43 [facility] (Rec: 03/17/20 17:20 [facility] [id number]) OT CJL-Wbbz-Epnikbg General Evaluation Self-Feeding Ability Standby Assistance Areas Needing Assistance Opening Containers Comments OT Self-Feeding Comments Pt able to bring spoon to her mouth independently but not wanting to eat more than a few bites. A pillow was placed under her right elbow to increase her ease from hand to mouth. Pt states just had her right molar taken out and still trying to get use to eating food on the left side. OT ADL-Grooming Comments OT Grooming Comments NOt performed. OT ADL-Oral Care Comments Oral Care Comments NOt performed. OT ADL-Dressing General Eval Lower Body Dressing Ability Maximum Assistance Areas Needing Assistance Socks Comments OT Dressing Comments Pt states she usually has assist to annette/doff her socks and shoes. OT ADL-Toileting Comments OT Toileting Comments Pt not having to use the toilet at this time. OT ADL-Bathing Comments OT Bathing Comments NOt performed. M5 OT- IP IADL's Start: 03/17/20 16:43 Freq: Status: Active Protocol: Document 03/17/20 16:43 [facility] (Rec: 03/17/20 17:20 [facility] [id number]) OT-Instrumental Activities of Daily Living Home Safety Awareness Awareness of Need for Assistance at Home Decreased Awareness Ability to Problem Solve Emergency Unable to Problem Solve Situations Medication Management Medication Management Caregiver Administers Money Management Money Management Caregiver Provides Assistance Meal Preparation Meal Preparation Caregiver Provides Assist Outboard Technician Outboard Technician Caregiver Provides Assist Driving Driving Caregiver Provides Assist M6 OT- IP Functional Cognition Start: 03/17/20 16:43 Freq: Status: Active Protocol: Document 03/17/20 16:43 [facility] (Rec: 03/17/20 17:20 [facility] [id number]) Cognitive Factors Limiting Selfcare Function Cognitive Ability Level of Alertness Alert,Confusional State Patient Orientation Name,Situation Attention Span Ability Capable of Focused Attention, Capable of Sustained Attention Ability to Follow Commands Able to Follow One Step Commands with Increased Time, Able to Follow One Step Commands with Repetition Memory Description Short Term Impaired,Sports Analyst Impaired Safety Awareness Underestimates Need for Assistance Problem Solving Ability Unable to Identify Errors, Needs Assist to Identify Solutions Executive Function Ability Unable to Organize Plans, Unable to Remember Details Cognitive Comments Cognitive Assessment Comments Pt getting confused on whether she was in the hospital, at [facility] or at her daughter's home. Pt's daughter feels that pt is baseline for cognitive needs. Pt thinking that her rollator was in the room or bathroom and pt's daughter needing to remind her that she was in the hospital. OT- Vision and Hearing OT- Vision Assessment Vision Assessment Comments Pt able to read the clock. M7 OT- IP Mobility and Balance Start: 03/17/20 16:43 Freq: Status: Active Protocol: Document 03/17/20 16:43 [facility] (Rec: 03/17/20 17:20 [facility] [id number]) OT- Bed Mobility Assessment Rolling Type of Rolling Log Rolling Level of Assistance Maximum Assistance,Bedrails Supine to Sit Supine to Sit Assist Maximum Assistance,1 Person Assistance Scooting Scooting to Edge of Bed Maximum Assistance,1 Person Assistance OT-Transfer Assessment Sit to and From Stand Sit to and from Stand Maximum Assistance,1 Person Assistance Transfers Transfer Ability Maximum Assistance,1 Person Assistance Technique Transfer Destination Bed,Chair Transfer Technique Stand Step Pivot Devices Transfer Assistive Devices Gait Belt,Front Wheeled Walker Comments Mobility Comments Heavy use of green pad to assist to roll to her right side and MAX A from sidelying to sitting. MAX AX 1 to stand to FWW and pt tends to resist and lean on the back of her heels. Pt needing vc to put weight throughout her feet. MAX A X1 to help guide FWW, steady pt and MAX vc for safety and sequence through the task. At this time notified nursign of transfers only with 2 person assist. OT- Gait Assessment Comments Gait Ability Comments Only transfer at this time. OT- Balance Assessment Sitting Balance and Reactions Static Sitting Balance Ability Fair Standing Balance and Reactions Static Standing Balance Ability Poor Comments Other Balance Tests/Deviations/Treatment Initially pt needing DIANA for : sitting balance as leaning to the left and then after assisting pt for positioning to midline able to sit with close SBA. M8 OT- IP Objective Assessments Start: 03/17/20 16:43 Freq: Status: Active Protocol: Document 03/17/20 16:43 [facility] (Rec: 03/17/20 17:20 [facility] [id number]) OT-Muscle Tone Assessment Muscle Tone WNL Yes M9 OT- IP Assessment and Plan Start: 03/17/20 16:43 Freq: Status: Active Protocol: Document 03/17/20 16:43 [facility] (Rec: 03/17/20 17:20 [facility] [id number]) OT Summary Assessment and Plan Potential Rehabilitation Potential Good Analytic Complexity at Evaluation Low Summary OT Impairments Strength,Balance,Coordination, Functional Cognition, Functional Mobility,Self- Feeding,Grooming,Dressing, Toileting,Bathing,Toilet Transfers,Shower Transfers, Activity Tolerance Progress Towards Goals Slow Progress due to Medical Issues,Slow Progress due to Activity Tolerance,Slow Progress due to Cognition Assessment Summary Pt low complexity and here due to possible TIA versus CVA. Per pt's daughter feels that cognitively there is no change however, now needing MAX A for all mobility needs versus prior did not need assist and was able to use her 4WW. Pt at this time is far from baseline and would benefit from skilled rehab versus home to [facility] and increased assist. Goals Self-Feeding Goal Independent Grooming Goal Independent Dressing Goal Moderate Assistance Toileting Goal Moderate Assistance Bathing Goal Moderate Assistance Toilet Transfer Goal Standby Assistance Shower Transfer Goal Standby Assistance Days to Meet Goals 20 Frequency of Treatment Frequency Of Treatment Once a Day Treatment Plan OT Treatment Plan ADL Training,Functional Cognition Training,Functional Mobility,Patient/Family Education,Discharge Planning Other Treatment Recommendations and Next Transfer to [facility] [place] FWW with Treatment Focus MODA x1. Discharge Recommendations OT Discharge Recommendations SNF Rehab Other Discharge Recommendations Pending progree home with increased assist, home health versus skilled rehab Home Equipment Needs Defer to SNF Transportation Needs at Discharge Wheelchair/Cabulance
[2020-03-17 14:00] VITALS: BP 132/67; PULSE 70; RESP 15; TEMP 36.8; O2SAT 93
[2020-03-17] MEDS: diazePAM 5 MG TABLET PO (14:01)
[2020-03-17] MEDS: CARBIDOPA LEVODOPA 1 EACH PO ×3 (14:01→20:45)
[2020-03-17 15:53] VITALS: BP 159/79; PULSE 79; RESP 18; TEMP 36.7; O2SAT 95
--- NOTE | 2020-03-17 16:06 | CM.IDA ---
Initial DCP Assessment Note Patient is a 74 yo female, resident of [facility]. Patient brought in by EMS with report of left facial droop and slurring speech, h/o Parkinson's disease. PCP: Dr Porter ([place]) Payer: VIRY/[employer]j Reviewed chart. Met w/patient and her dtr briefly this morning during multidisciplinary rounds, introduced role. Patient moved to [facility] very recently from her [facility] in [place], to be closer to her dtr Albertina. Attempted assessment x2 today, patient very busy; pending consults today included: LAW RESEARCHER,PT,OT, MRI and echo pending as well. Suggested to PT Ovidio that further coordination of care can be completed tomorrow w/patient and family once consults have been completed and medical POC has time to unfold, Ovidio agrees. Following closely to assist in coordination of safe DCP [place]
--- NOTE | 2020-03-17 16:17 | PT-IP ANOTE ---
PT order received. Attempted to see pt at 1610. Pt was too exhausted from ECHO, OT, NEWSPAPER DELIVERY DRIVER, and MRI to meaningfully participate in PT. Will attempt to see tomorrow morning.
--- NOTE | 2020-03-17 17:01 | P.PN_ITS ---
Subjective Subjective Date Patient Seen: 03/17/20 Interval history: Faye Harris is a 74-year-old female with a past medical history significant for Parkinson's disease and depression who presented to the ED via EMS from assisted living facility at [facility] for left facial droop and dysarthria with slurred speech and expressive aphasia. The patient is resting in bed comfortably. She does have a Parkinson's disease so neurological exam is difficult to assess. Her facial droop has resolved. She continues to have mild dysarthria related to Parkinson's disease. She denies headache, shortness of breath, chest pain, abdominal pain, nausea, vomiting, fever, chills, dysuria, diarrhea or constipation. She is voiding and eliminating without difficulty. She is up ambulating with assistance. Exam Vital Signs (past 8 hours): - 03/17/20 10:24 Blood Pressure 142/71 H Oxygen Delivery Method Room Air Oxygen Flow Rate 93 Narrative Exam Narrative: General: Elderly female lying in bed and in no acute distress, well-developed, well-nourished, appropriately interactive. HEENT: Normocephalic, atraumatic. External ears without defect. Pupils equal, round, and reactive to light. Anicteric sclerae, moist conjunctivae, and no lid lag. Oropharynx free of erythema and cobble stoning with moist mucosa. No facial droop. Neck: Supple with full range of motion. No jugular venous distension. No bruits. No lymphadenopathy or thyromegaly. Cardiovascular: Regular rate and rhythm without murmurs, rubs, or gallops appreciated. Pulmonary: Clear to auscultation bilaterally without crackles, wheezes, or rhonchi. Normal respiratory effort with no use of accessory muscles. Abdomen: Soft, bowel tones present, nontender, nondistended. Extremities: No clubbing, cyanosis, or edema. Skin: Normal temperature, turgor, and texture; no rash, ulcers, or subcutaneous nodules appreciated. Neurological: Cranial nerves grossly intact. Generalized weakness without focal deficit. Facial droop resolved. Patient has mild dysarthria likely related to Parkinsons. Parkinsonian tremor. and rigidity. Psychiatric: Normal mood and affect. Alert and oriented to person, place, and time. Objective Labs Result Diagrams: 03/17/20 06:06 03/17/20 06:06 Labs: Laboratory Results - last 24 hr 03/16/20 03/16/20 03/16/20 13:45 13:45 13:45 WBC 6.5 RBC 3.90 L Hgb 11.7 L Hct 36.1 MCV 92.5 MCH 30.0 MCHC 32.4 RDW 13.7 Plt Count 330 Neut % (Auto) 67.5 Lymph % (Auto) 17.8 L [place] % (Auto) 12.9 Eos % (Auto) 1.2 L Baso % (Auto) 0.6 Neut # (Auto) 4400 Lymph # (Auto) 1200 [place] # (Auto) 800 Eos # (Auto) 100 Baso # (Auto) 0 PT 11.3 INR 1.0 APTT 31 Sodium 141 Potassium 4.7 Chloride 103 Carbon Dioxide 33 H BUN 24 H Creatinine 0.98 Estimated GFR 55.5 L BUN/Creatinine Ratio 24.5 H Glucose 105 Hemoglobin A1c Calcium 9.0 Magnesium Total Bilirubin 0.7 AST 17 ALT 4 Alkaline Phosphatase 77 Total Protein 7.6 Albumin 4.4 Globulin 3.2 Albumin/Globulin Ratio 1.4 Triglycerides Cholesterol LDL Cholesterol, Calc HDL Cholesterol TSH Urine Color Urine Appearance Urine pH Ur Specific [place] Urine Protein Urine Glucose (UA) Urine Ketones Urine Occult Blood Urine Nitrate Urine Bilirubin Urine Urobilinogen Ur Leukocyte Esterase Urine RBC Urine WBC Ur Squamous Epith Cells Urine Bacteria Ur Culture Indicated? COVID-19 PCR 03/16/20 03/16/20 03/16/20 13:45 13:45 13:45 WBC RBC Hgb Hct MCV MCH MCHC RDW Plt Count Neut % (Auto) Lymph % (Auto) [place] % (Auto) Eos % (Auto) Baso % (Auto) Neut # (Auto) Lymph # (Auto) [place] # (Auto) Eos # (Auto) Baso # (Auto) PT INR APTT Sodium Potassium Chloride Carbon Dioxide BUN Creatinine Estimated GFR BUN/Creatinine Ratio Glucose Hemoglobin A1c 5.7 Calcium Magnesium 2.3 Total Bilirubin AST ALT Alkaline Phosphatase Total Protein Albumin Globulin Albumin/Globulin Ratio Triglycerides Cholesterol LDL Cholesterol, Calc HDL Cholesterol TSH 1.90 Urine Color Urine Appearance Urine pH Ur Specific [place] Urine Protein Urine Glucose (UA) Urine Ketones Urine Occult Blood Urine Nitrate Urine Bilirubin Urine Urobilinogen Ur Leukocyte Esterase Urine RBC Urine WBC Ur Squamous Epith Cells Urine Bacteria Ur Culture Indicated? COVID-19 PCR 03/16/20 03/17/20 03/17/20 18:35 06:06 06:06 WBC 4.6 RBC 3.37 L Hgb 10.1 L Hct 31.1 L MCV 92.4 MCH 30.0 MCHC 32.5 RDW 13.6 Plt Count 267 Neut % (Auto) 61.5 Lymph % (Auto) 21.6 L [place] % (Auto) 15.0 H Eos % (Auto) 1.2 L Baso % (Auto) 0.7 Neut # (Auto) 2800 Lymph # (Auto) 1000 L [place] # (Auto) 700 Eos # (Auto) 100 Baso # (Auto) 0 PT INR APTT Sodium 139 Potassium 4.1 Chloride 107 Carbon Dioxide 28 BUN 20 H Creatinine 0.77 Estimated GFR > 60.0 BUN/Creatinine Ratio 26.0 H Glucose 86 Hemoglobin A1c Calcium 8.3 L Magnesium 2.1 Total Bilirubin AST ALT Alkaline Phosphatase Total Protein Albumin Globulin Albumin/Globulin Ratio Triglycerides 116 Cholesterol 166 LDL Cholesterol, Calc 103 H HDL Cholesterol 40 TSH Urine Color Urine Appearance Urine pH Ur Specific [place] Urine Protein Urine Glucose (UA) Urine Ketones Urine Occult Blood Urine Nitrate Urine Bilirubin Urine Urobilinogen Ur Leukocyte Esterase Urine RBC Urine WBC Ur Squamous Epith Cells Urine Bacteria Ur Culture Indicated? COVID-19 PCR Negative 03/17/20 07:26 WBC RBC Hgb Hct MCV MCH MCHC RDW Plt Count Neut % (Auto) Lymph % (Auto) [place] % (Auto) Eos % (Auto) Baso % (Auto) Neut # (Auto) Lymph # (Auto) [place] # (Auto) Eos # (Auto) Baso # (Auto) PT INR APTT Sodium Potassium Chloride Carbon Dioxide BUN Creatinine Estimated GFR BUN/Creatinine Ratio Glucose Hemoglobin A1c Calcium Magnesium Total Bilirubin AST ALT Alkaline Phosphatase Total Protein Albumin Globulin Albumin/Globulin Ratio Triglycerides Cholesterol LDL Cholesterol, Calc HDL Cholesterol TSH Urine Color Yellow Urine Appearance Clear Urine pH 5.5 Ur Specific [place] 1.020 Urine Protein Negative Urine Glucose (UA) Negative Urine Ketones Trace H Urine Occult Blood Negative Urine Nitrate Negative Urine Bilirubin Negative Urine Urobilinogen 0.2 Ur Leukocyte Esterase Negative Urine RBC None seen Urine WBC 0-1/hpf Ur Squamous Epith Cells 5-10 /hpf H Urine Bacteria Occasional (0-1) Ur Culture Indicated? Cult not indicated COVID-19 PCR Assessment & Plan Assessment & Plan narrative: Faye Harris is a 74-year-old female with a past medical history significant for Parkinson's disease and depression who presented to the ED via EMS from [facility] at [facility] for left facial droop and dysarthria with slurred speech and expressive aphasia. 1. Acute TIA, present on admission. Resolved. -Patient presented with left facial droop and dysarthria with slurred speech and expressive aphasia. -Initial NIH 3 (although with overlying Parkinsons score assessment is difficult). Continue frequent neurological assessment. Patients facial droop and dysarthria resolved. -CT brain without contrast did not demonstrate any acute intracranial abnormalities. -MR stroke protocol did not demonstrate evidence of acute ischemia or hemodynamically significant stenosis or occclusion of intracranial or neck arteries. Noted, diffuse small white matter chronic microvascular ischemic disease. -EKG demonstrated normal sinus rhythm without acute ischemic changes. Continue close monitoring on telemetry. Patient remains in sinus rhythm without ectopy. -Echocardiogram did not demonstrate any intraatrial shunt or embolic source. -Allow for permissive hypertension x 24 hours. -Risk stratified with hemoglobin A1C which was 5.7% indicative of prediabetes and fasting lipid panel which demonstrated fair lipid control: Total cholesterol 166, triglycerides 116, LDL 103 (goal < 100), and HDL 40. -Continue aspirin 81 mg daily and atorvastatin 20 mg daily at bedtime for stroke prophylaxis. -Continue physical, occupational and speech therapies evaluation and treatment. 2. Parkinson's disease, chronic and present on admission -Continue home baclofen 10 mg three times daily, gababpentin 300 mg three times daily and rotigotine 4 mg transdermal patch daily. -Continue home carbadopa/levadopa 25/250 mg every 4 hours, carbadopa/levadopa 50/100 mg 2 tabs at bedtime, and carbadopa/levadopa 10/100 every 8 hours as needed for parkinsonian symptoms 3. Peripheral edema, likely secondary to venous insufficiency, chronic, present on admission. Stable. -Held home furosemide. 4. Depression, chronic, present on admission. Stable. -Continued home citalopram 20 mg daily and buproprion 100 mg twice daily. Code Status: Full code as discussed with patient VTE prophylaxis: SCDs Disposition: Patient likely to discharge back to assisted living facility at [facility] tomorrow.
--- NOTE | 2020-03-17 18:47 | PC.NURSE ---
Addendum entered by Shanell Anaya R.N. 03/17/20 21:09: Became more confused as the night went on and also became incontinent of urine. Original Note: Patient can answer all orientations correctly and more in depth orientation questions but still has episodes that lead to some confusion. She removed her tele box from her gown and denied doing so, was looking for her phone and thought it was between the bed and the side rail but it was on the bedside table. High fall risk d/t hx of falls, hx of Parkinsons, and weakness. Bed alarm on and functioning, call light in reach, in view room.
[2020-03-17 19:53] VITALS: BP 143/74; PULSE 78; RESP 20; TEMP 36.7; O2SAT 94
[2020-03-17] MEDS: CARBIDOPA-LEVODOPA ER 50/200 TABLET 2 EACH PO (20:45)
[2020-03-17] MEDS: ATORVASTATIN 20 MG TABLET 40 MG PO (20:45)
[2020-03-17] MEDS: SODIUM CHLORIDE 0.9% FLUSH 10 ML IV (20:59)
[2020-03-18 00:22] VITALS: BP 164/88; PULSE 79; RESP 16; TEMP 37.4; O2SAT 92
[2020-03-18] MEDS: CARBIDOPA LEVODOPA 1 EACH PO ×3 (01:16→08:39)
--- NOTE | 2020-03-18 02:56 | PC.NURSE ---
Patient is alert and orientated but confused. Patient does answers questions appropriately but at times thinks she's in the assisted living facility. Patient NIH 2 for expressive aphagia, and mixes up some words.
[2020-03-18 05:00] VITALS: BP 153/73; PULSE 70; RESP 16; TEMP 36.6; O2SAT 94
[2020-03-18 07:37] VITALS: BP 145/74; PULSE 72; RESP 16; TEMP 36.6; O2SAT 95
[2020-03-18] MEDS: ACETAMINOPHEN 325 MG TABLET 650 MG PO (08:35)
[2020-03-18] MEDS: BACLOFEN 10 MG TABLET PO (08:37)
[2020-03-18] MEDS: CITALOPRAM 10 MG TABLET 20 MG PO (08:37)
[2020-03-18] MEDS: GABAPENTIN 300 MG CAPSULE PO (08:37)
[2020-03-18] MEDS: ASPIRIN EC 81 MG TABLET PO (08:37)
[2020-03-18] MEDS: buPROPion SR 100 MG TAB PO (08:38)
[2020-03-18] MEDS: CARBIDOPA-LEVODOPA 10/100 TABLET 1 EACH PO (08:38)
--- NOTE | 2020-03-18 11:05 | PT.IIE ---
Surgical History (Last Updated 03/16/20 @ 23:57 by TESFAYE Lee) H/O: hysterectomy (Acute) Hx of tooth extraction (Acute) Hx of total knee replacement (Acute) Medical History (Last Updated 03/16/20 @ 23:57 by TESFAYE Lee) Hx of cancer of uterus (Acute) Parkinsons disease (Acute) Physical Therapy Inpatient Evaluation/Re-Eval M1 PT/OT-IP Prior Functional Status Start: 03/17/20 16:43 Freq: NEEDED Status: Active Protocol: Document 03/18/20 11:05 DLM (Rec: 03/18/20 12:02 DLM [email or web address]) Medical Review Prior Functional Status Medical History Reviewed Yes Communication Independent to state her needs , pt has decreased short term memory and confusion at times. Pt's daughter feels that she is baseline for her cognitive needs. Mobility and Gait Pt daughter states she uses a 4WW for gait and mobility Activities of Daily Living and IADL's Per zoe pt needs assist for completeness for toileting , LB dressing, and for showers. She gets assistance with medications. Prior Functional Level (Other details) Pt just moved to [facility] to be closer to her daughter. Social History Household Members none Living Arrangements Halfway Facility Number of Floors (Floors) One Floor Number of Stairs To Enter/Railing? 0 Home Equipment Four Wheel Walker,Power Wheelchair/Scooter Employment Status Retired Additional Social History Comment Daughter reports the apt has narrow doors M2 PT-IP Current Condition Start: 03/17/20 08:25 Freq: NEEDED Status: Active Protocol: Document 03/18/20 11:05 DLM (Rec: 03/18/20 12:02 DLM [email or web address]) Physical Therapy Current Condition Current Condition Evaluation Date 03/18/20 Treatment Diagnosis TIA vs CVA, impaired mobility/ gait Onset Date 03/16/20 Precautions Other Precautions Pt came in to ER due to left facial droop and slurring speech which started on . M3 PT-IP Subjective Start: 03/17/20 08:25 Freq: NEEDED Status: Active Protocol: Document 03/18/20 11:05 DLM (Rec: 03/18/20 12:02 DLM [email or web address]) Subjective Physical Therapy Visit Type Type Initial Evaluation Visit Start Time 10:30 Visit Stop Time 11:05 Total Visit Minutes 35 Number of SPRINKLER WORKER Visits 0 Physical Therapy Visit Comments Patient Comments She reports feeling better today. Her Daughter is present and thinks the patient is moving better. Her Daughter feels like having more physical therapy at home would be helpful. Patient Goals She wants to go back to her apt in [facility] Pain Assessment Pain When Pain Assessed During Mobility Pain Present Pain Present Pain Reported Location neck Intensity 4 Scale Used Numeric (0 - 10) Description Aching Pain Management Techniques Re-positioning M4 PT-IP Mobility and Gait Start: 03/17/20 08:25 Freq: NEEDED Status: Active Protocol: Document 03/18/20 11:05 DLM (Rec: 03/18/20 12:02 DLM [email or web address]) PT-Bed Mobility Assessment Rolling Type of Rolling Roll to Left Level of Assist Standby Assistance Supine to Sit Supine to Sit Standby Assistance Sit to Supine Sit to Supine Minimal Assistance Scooting Scooting to Edge of Bed Independent PT-Transfer Assessment Sit to and From Stand Sit to and from Stand Standby Assistance,Minimal Assistance,Use of Upper Extremities Equipment Transfer Assistive Device Gait Belt,Front Wheeled Walker Transfers Transfer Destination Bed Transfer Technique Stand Step Pivot Transfer Ability Level of Assist Standby Assistance Comments Mobility Comments she needs verbal reminders to use her FWW all the time, she has difficulty getting into bed due to poor body awareness for positioning, she is slow with supine to sit but shows good use of rail (pt has rail on bed at home). Pt reports she normally crawls into bed on her knees which I do not recommend. Gait Assessment Gait Gait Assistance Required: Standby Assistance Distance (Feet) 25 Assistive Devices Assistive Device Gait Belt,Front Wheeled Walker Gait Deviations General Gait Pattern Decreased Stride Length, Decreased Feet Clearance Factors Limiting Gait Function Factors Limiting Gait Function Decreased Activity Tolerance, Incoordination,Poor Balance, Poor Safety Awareness Comments Gait Comments short shuffling gait pattern, tends to drift left during gait allowing feet to get outside of the fWW, she can correct with cuing. Pt reports she does not use her fWW at home in the bathroom nor the kitchen and holds to rails and cabinets. PT-Balance Assessment Sitting Balance and Reactions Static Sitting Balance Ability Normal Dynamic Sitting Balance Ability Good Standing Balance and Reactions Static Standing Balance Ability Good Dynamic Standing Balance Ability Fair Device Used FWW M5 PT-IP Objective Assessments Start: 03/17/20 08:25 Freq: NEEDED Status: Active Protocol: Document 03/18/20 11:05 DLM (Rec: 03/18/20 12:02 DLM [email or web address]) Orientation Orientation/Cognition Level of Alertness Alert Orientation Name,Place Language Function Ability No Deficits Noted Safety Awareness Decreased Safety Awareness Memory Description Short Term Impaired Comments she will turn to Daughter to help answer questions about baseline function and home details Gross Range of Motion Upper Extremity ROM Assessment Within Functional Limits Lower Extremity ROM Assessment Within Functional Limits Impairments she reports hx of pain in left hip with certain movements Strength Lower Extremity Strength Hip flexion 4/5 Knee 5/5 Ankle DF 5/5 Coordination Assessment Gross Coordination Gross Coordination Impaired Assessment Foot Tapping Test Moderate Impairment Sensation Assessment Sensation Gross Sensation WNL Muscle Tone Comments Muscle Tone Comments mild rigidity M6 PT-IP Treatment Start: 03/17/20 08:25 Freq: NEEDED Status: Active Protocol: Document 03/18/20 11:05 DLM (Rec: 03/18/20 12:02 DLM [email or web address]) Physical Therapy Treatment Education Education Provided Safety M7 PT-IP Assessment and Plan Start: 03/17/20 08:25 Freq: NEEDED Status: Active Protocol: Document 03/18/20 11:05 DLM (Rec: 03/18/20 12:02 DLM [email or web address]) PT Summary Assessment and Plan Potential Rehabilitation Potential Good Status of Condition at Evaluation Evolving Summary Impairments Strength,Balance,Bed Mobility, Transfers,Gait,Activity Tolerance Assessment Summary Faye appears to be progressing well during this hospitalization based on prior noted from OT and nursing. She has mild to moderate parkinson's symptoms today. Her decreased memory makes it difficult for her to learn new techniques and she will need a lot of repetition. She appears safe to discharge home with caregiver support and home health. There are multiple home safety issues that came up during this eval that could best be addressed by home health in her normal environment. Training in her home environment should also improve her care-over for home tasks. Goals Bed Mobility Goal Independent Transfer Goal Independent,Front Wheeled Walker Gait Goal Independent,Front Wheel Walker Gait Distance 100 feet Days to Meet Goals 2 Frequency of Treatment Frequency Of Treatment Twice a Day Treatment Plan Physical Therapy Treatment Plan Bed Mobility Training,Transfer Training,Gait Training, Therapeutic Exercise,Balance Retraining,Discharge Planning, Neuromuscular Re-ed Recommendations To Nursing Amount of Assist Needed 1 Person Assist Discharge Recommendations PT Discharge Recommendations Home with Assistance,Home Health Other Discharge Recommendations assistance provided by caregivers at her facility and her Daughter Equipment Needed for Home Before she owns a 4WW Discharge Transportation Needs at Discharge Private Vehicle
--- NOTE | 2020-03-18 11:18 | PC.NURSE ---
Assess- Patient slightly confused today, she had an incontinence of stool. Patient went for a shower to get cleaned up. Up with 1-2 person assist to use the commode or bathroom with the walker. Given her meds whole in pudding. She is sitting up in the chair now, and visiting with her daughter. She will be discharged to [facility] shortly.
--- NOTE | 2020-03-18 11:22 | ST.IPDYTX ---
Visit Care Team Role Provider Type Nely Hampton MD Emergency Provider Physician Referring Provider Specialty: Emergency Medicine Address: [address] [place] [address], [id number] Email: Rosina Jimenez DO Admit Provider Physician Attending Provider Specialty: Internal Medicine Address: [address] [place] [address], [id number] Email: [email or web address] MENDING CARRIER Dysphagia Treatment MENDING CARRIER Dysphagia Treatment Start: 03/18/20 11:12 Freq: Status: Active Protocol: Document 03/18/20 11:12 LNK (Rec: 03/18/20 11:22 LNK [id number]) Dysphagia Treatment Session Time Visit Start Time 11:00 Visit Stop Time 11:15 Total Visit Minutes 15 Setting Assessment Location Acute Care Visit Type Note Type Treatment Note Patient Information Identification Type Name,ID Wristband Subjective Observations Pt was in her room having just completed PT. P'ts family in the room as well. Pt is scheduled for discharge this morning. Treatment Treatment Activities No PO trials today because we were between meals. Pt is discharging this morning. Pt reported that her speech has returned to baseline. This was confirmed by family. Pt also reported that she ate her breakfast without difficulty. She denied and coughing/ choking during her meal. With regard to her dysarthria, speech therapy was discussed to provide pt with strategies to aid when she is in her Parkinson's (her words). Pt was in agreement as was her family. Assessment Patient Response to Treatment Excellent Rehab Potential Good Diet Recommendations Recommendations Continue Current Diet Treatment Plan Placement Recommendation after Discharge [facility] Appropriate for Continued Therapy Yes: Recommend outpatient ST Therapy Recommendations Outpatient ST
--- NOTE | 2020-03-18 11:38 | PM.DS.1 ---
History of Present Illness History of Present Illness Date Patient Seen: 03/16/20 Chief complaint: Code Stroke Narrative: Written by Cynthia CARLIN: Faye Harris is a 74 y.o. female with Parkinson's and resident of [facility] was in her usual state of health brought in by EMS with reports of left facial droop and slurring speech. She states it started yesterday (03/15) with difficulty speaking and when she woke up this morning, she was very weak and unable to get out of bed. She denies unilateral weakness, just stated she was unable to move. She has a history of Parkinson's disease and is followed by a primary care physician(Dr. Porter) in [place] and sees a wet machine operator at [facility] in [place]. Patient feels that her symptoms started yesterday with increasing overall weakness and difficulty expressing herself. Per the ED note, she presumed it was secondary to her Parkinson's disease and did not mention it to anybody. She was seen by a caregiver this morning at 10:30 a.m. who felt that she was at her baseline as he was giving her her usual morning medications. When he checked on her at noon he felt that her speech was slurred and she had a left facial droop and 911 was called. Medics confirmed significant dysarthria and facial droop she is may be able to move all extremities but complains that she is weak and feels like she could not walk. Upon arrival in the emergency room both the facial droop and the dysarthria began to improve and within an hour and a half a being in the emergency department those symptoms have resolved completely. She still feels that she is overall weak and would have difficulty walking. Her exam is complicated by her baseline Parkinson's disease and it is unclear if her weakness is worse. She states she is very sleepy, and that her speech is back to normal. She ambulates with a walker normally. She denies difficulty swallowing, visual changes, headache, difficulty breathing, chest pain, abdominal pain, dysuria, diarrhea or constipation. She has chronic weakness from her Parkinson's disease which is worsened over the last day. She does not endorse any depression and is very pleased with the recent relocation to her current assisted living facility. She is not established locally because she just relocated from an assisted living facility in [facility] to be closer to her daughter a week ago. CT of the brain reported the following findings: No intracranial bleeds or masses. There is cerebral volume loss for age, with resultant ventricular and sulcal prominence. There are periventricular and deep white matter chronic small vessel ischemic changes. There is intracranial internal carotid artery atherosclerosis. Patient is afebrile, blood pressure 162/78, heart rate 70, respiratory rate 11, oxygen saturation of 95% on room air, she weighs 85.7 kg with a BMI of 31.4. CBC largely within normal limits, coag studies normal, sodium is 141, potassium 4.7, chloride 103, bicarb 33, BUN 24, creatinine 0.98, with a GFR 55.5, calcium is 9.0, magnesium 2.3, liver enzymes essentially within normal limits, TSH is 1.9, and COVID PCR is negative Discharge Providers Provider Date of admission: 03/16/20 18:05 Discharge Date: 03/18/20 Consults: 03/16/20 20:56 Consult to Discharge Planning Routine Comment: Consult to Occupational Therapy Evaluate & Treat Comment: Physician Instructions: Evaluate and treat Consult to Physical Therapy Evaluate & Treat Comment: Physician Instructions: Evaluate and Treat Consult to Speech Therapy Evaluate & Treat Comment: Swallow eval Physician Instructions: Evaluate and treat 03/18/20 11:06 Consult to Home Health Routine Comment: Reason For Exam: Home Health Upon DC Discharge provider: Rosina Jimenez DO Summary Hospital Course Discharge Diagnosis: 1. Acute TIA, present on admission. Resolved. 2. Parkinson's disease, chronic, present on admission. Stable. 3. Peripheral edema, likely secondary to venous insufficiency, chronic, present on admission. Stable. 4. Depression, chronic, present on admission. Stable. Hospital Course: Faye Harris is a 74-year-old female with a past medical history significant for Parkinson's disease and depression who presented to the ED via EMS from assisted living facility at [facility] for left facial droop and dysarthria with slurred speech and expressive aphasia. 1. Acute TIA, present on admission. Resolved. -Patient presented with left facial droop and dysarthria with slurred speech and expressive aphasia. -Initial NIH 3 (although with overlying Parkinsons score assessment is difficult). Continued frequent neurological assessment. Patients facial droop and dysarthria resolved. -CT brain without contrast did not demonstrate any acute intracranial abnormalities. -MR stroke protocol did not demonstrate evidence of acute ischemia or hemodynamically significant stenosis or occclusion of intracranial or neck arteries. Noted, diffuse small white matter chronic microvascular ischemic disease. -EKG demonstrated normal sinus rhythm without acute ischemic changes. Continue close monitoring on telemetry. Patient remains in sinus rhythm without ectopy. -Echocardiogram did not demonstrate any intraatrial shunt or embolic source. -Allowed for permissive hypertension x 24 hours. -Risk stratified with hemoglobin A1C which was 5.7% indicative of prediabetes and fasting lipid panel which demonstrated fair lipid control: Total cholesterol 166, triglycerides 116, LDL 103 (goal < 100), and HDL 40. -Continued aspirin 81 mg daily and atorvastatin 20 mg daily at bedtime for stroke prophylaxis. -Continued physical, occupational and speech therapies evaluation and treatment. Discharged with home health for PT/OT/ST. 2. Parkinson's disease, chronic, present on admission. Stable. -Continued home baclofen 10 mg three times daily, gababpentin 300 mg three times daily and rotigotine 4 mg transdermal patch daily. -Continued home carbadopa/levadopa 25/250 mg every 4 hours, carbadopa/levadopa 50/100 mg 2 tabs at bedtime, and carbadopa/levadopa 10/100 every 8 hours as needed for parkinsonian symptoms 3. Peripheral edema, likely secondary to venous insufficiency, chronic, present on admission. Stable. -Held home furosemide and restarted at time of discharge. 4. Depression, chronic, present on admission. Stable. -Continued home citalopram 20 mg daily and buproprion 100 mg twice daily. Exam Vital Signs (past 8 hours): - 03/18/20 05:00 03/18/20 07:37 Temperature 97.8 F 97.8 F Pulse Rate 70 72 Respiratory Rate 16 16 Blood Pressure 153/73 H 145/74 H Pulse Oximetry 94 95 Oxygen Delivery Method Room Air Oxygen Flow Rate 0 Narrative Exam Narrative: General: Elderly female lying in bed and in no acute distress, well-developed, well-nourished, appropriately interactive. HEENT: Normocephalic, atraumatic. External ears without defect. Pupils equal, round, and reactive to light. Anicteric sclerae, moist conjunctivae, and no lid lag. Oropharynx free of erythema and cobble stoning with moist mucosa. No facial droop. Neck: Supple with full range of motion. No jugular venous distension. No bruits. No lymphadenopathy or thyromegaly. Cardiovascular: Regular rate and rhythm without murmurs, rubs, or gallops appreciated. Pulmonary: Clear to auscultation bilaterally without crackles, wheezes, or rhonchi. Normal respiratory effort with no use of accessory muscles. Abdomen: Soft, bowel tones present, nontender, nondistended. Extremities: No clubbing, cyanosis, or edema. Skin: Normal temperature, turgor, and texture; no rash, ulcers, or subcutaneous nodules appreciated. Neurological: Cranial nerves grossly intact. Generalized weakness without focal deficit. Facial droop resolved. Patient has intermittent mild dysarthria likely related to Parkinsons. Parkinsonian tremor and rigidity. Psychiatric: Normal mood and affect. Alert and oriented to person, place, and time. Objective Labs Result Diagrams: 03/17/20 06:06 03/17/20 06:06 Discharge Plan Discharge Plan Patient Disposition: Assisted Living Other facility: [facility] Transportation: Private vehicle Provider Discharge Comment: You are being discharged home with home health for physical, occupational, and speech therapy. You did not have a stroke. You likely had a TIA (transient ischemic attack or mini-stroke) versus neurological symptoms from your Parkinson's disease. You have been started on aspirin 81 mg daily (please take with food) and atorvastatin 20 mg daily at bedtime to help prevent. Please follow-up with your primary care physician, Dr. Porter, in the next 1 week regarding your hospitalization. Please also follow-up with your neurologist Dr. Roa, regarding your hospitalization as soon as available. Discharge orders & Medications Discharge Orders: Discharge (Order); Ordered 03/18/20 Ordered By: Rosina Jimenez Prescriptions: New atorvastatin [Lipitor] 20 mg Tablet 20 mg PO BEDTIME Qty: 30 RF: 0 aspirin 81 mg Tablet,Delayed Release (Dr/Ec) 81 mg PO DAILY Qty: 30 RF: 0 Continued carbidopa-levodopa 25-250 mg Tablet 1 tab PO Q4H RF: 0 carbidopa-levodopa 50-200 mg Tablet Extended Release 2 tab PO QPM RF: 0 acetaminophen 500 mg Tablet 500 mg PO Q6H PRN (Reason: Pain (Scale Score 1-3)) RF: 0 bupropion HCl 100 mg Tablet 100 mg PO BID RF: 0 citalopram 20 mg Tablet 20 mg PO DAILY RF: 0 baclofen 10 mg Tablet 10 mg PO TID RF: 0 carbidopa-levodopa 10-100 mg Tablet 1 tab PO Q8HR PRN (Reason: Parkinsonism) RF: 0 gabapentin 300 mg Capsule 300 mg PO TID RF: 0 furosemide 20 mg Tablet 20 mg PO DAILY RF: 0 trimethobenzamide 300 mg Capsule 300 mg PO Q8HR RF: 0 rotigotine 4 mg/24 hour Patch 24 Hour 4 mg TRANSDERMAL DAILY RF: 0 loratadine 10 mg Capsule 10 mg PO DAILY RF: 0 naproxen sodium [Aleve] 220 mg Capsule 220 mg PO Q8H PRN (Reason: Pain (Scale Score 1-3)) RF: 0 levodopa 42 mg Capsule, W/Inhalation Device 84 mg INHALATION 5XD RF: 0 Diet/Activity/Treatments Diet: Low-fat, Low-sodium and Low-cholesterol Food texture: Soft Diet comment: Dysphagia mechanical advanced Activity: Activity as tolerated with walker and physical and occupational therapy Special Rehabilitation Services Rehab type: Physical therapy, Occupational therapy and Speech therapy Visit Report/Discharge Packet Instructions: The Mediterranean Diet and Good Health, Soft Diet, DI for Transient Ischemic Attack, Mediterranean Diet May Reduce the Risk of Stroke in People with High Risk o Visit Report Forms: Patient Portal/API, Stroke Signs & Symptoms Discharge Data Attending Provider: Rosina Jimenez Admit Date/Time: 03/16/20 18:05 Discharges patient from system. Discharge Date/Time: 03/18/20 12:04
--- NOTE | 2020-03-18 14:04 | CM.DPNOTE ---
DC Note DC order in place by Dr Jimenez, according to DC Summary- TIA vs neurological symptoms sec to Parkinson's is suspected; presenting symptoms have much improved. Patient has been cleared by the therapy team for a return to [facility]. This CYBER SECURITY ARCHITECT spoke w/patient and her dtr Albertina at bedside this morning to review DCP. Patient eager to return home. Agreeable to , requests [facility] , all disciplines through approved by patient/family, RN/PT/OT/SECURITY SOLUTIONS ARCHITECT/ENGRAVING OPERATOR/CYBER SECURITY ARCHITECT Placed call to Margarita at [facility], they are expecting patient home today if nothing has dramatically changed from her baseline. Reassured [facility] team that there had not been significant functional changes and patient medically cleared for DC today. Updated that [facility] would get the referral and dtamanda lott would provide transport home. All aware and agreeable to plan. Referral faxed to [facility], completed and signed F2F, HH order, face sheet, clinical (DC Summary not available at this time). Spoke w/ Renato at [facility], confirmed referral and f/u w/in 24-48 hrs. PCP currently located in [place] but patient's dtr trying to establish patient w/a provider in [place]. Faxed DC ppk and signed med list to [facility] per request at F# [phone]. P: DC back home to [facility] via dtr's auto, [facility] to f/u [facility] [place]
== END 2020-03-18 12:04 ==
LOC: ED 14:32 → AC 18:11
PROVIDERS: Nurse Practitioner Family; Admitting Provider Internal Medicine; Emergency Provider Emergency Medicine; Referring Provider Emergency Medicine; Visit Provider Internal Medicine
DX: R29.818 Other symptoms and signs involving the nervous system (principal); R47.81 Slurred speech; R53.1 Weakness; I16.0 Hypertensive urgency; G20 Parkinson's disease; Z11.59 Encounter for screening for other viral diseases
CPT/HCPCS: 36415; 70450; 70548; 70553; 80048; 80053; 80061; 81001; 82962; 83036; 83735; 84443; 85025; 85610; 85730; 87635; 92526; 92610; 93005; 93306; 96360; 96361; 97162; 97165; 99285; G0378; A9579

== ENCOUNTER 2020-07-07 12:15 | Emergency (ER) | payer MEDICARE, OTHER, SELFPAY ==
[2020-03-16 19:01] VITALS: BMI 31.4
[2020-07-07] VITALS (14 sets, daily range): BP systolic 141–179; BP diastolic 67–87; PULSE 77–96; RESP 12–22; TEMP 36.7; O2SAT 93–95; BMI 25.7
--- NOTE | 2020-07-07 12:37 | DI.RAD.S_ITS ---
PROCEDURE: XR CHEST 1V INDICATIONS: altered mental status TECHNIQUE: One view of the chest was acquired. COMPARISON: None. FINDINGS: Surgical changes and devices: Surgical clips are seen in right upper quadrant abdomen.. Lungs and pleura: Scarring/atelectasis at left lung base is seen. No pleural effusions or pneumothorax. Mediastinum: Tortuous thoracic aorta is seen. Heart size is enlarged. Bones and chest wall: No suspicious bony lesions. Overlying soft tissues appear unremarkable. IMPRESSION: Left basilar scarring/atelectasis. No focal infiltrate, pleural effusion or pneumothorax. Dictated by: Serafin Mendes M.D. on 07/07/2020 at 13:13 Approved by: Serafin Mendes M.D. on 07/07/2020 at 13:14
[2020-07-07 12:48] LABS: Add Manual Diff / Slide Review NO; Basophils Absolute Auto 0 /uL (0-100); Basophils Percent Auto 0.4 % (0-2); Eosinophils Absolute Auto 0 /uL (0-450); Eosinophils Percent Auto 0.8 % (2-4); Hemoglobin 11.6 g/dL (12.0-16.0); Lymphocytes Absolute Auto 700 /uL (1100-4500); Lymphocytes Percent Auto 11.7 % (25-40); Mean Corpuscular HGB Conc 32.1 % (30-36); Mean Corpuscular Hemoglobin 29.4 PG (26-34); Mean Corpuscular Volume 91.7 fL (80-100); Monocytes Absolute Auto 600 /uL (0-900); Monocytes Percent Auto 8.9 % (3-14); Neutrophils Absolute Auto 5000 /uL (1500-7000); Neutrophils Percent Auto 78.2 % (50-75); Platelet Count 266 X10^3/uL (150-400); Red Blood Cell Count 3.93 X10^6/uL (4.0-5.2); Red Cell Distribution Width 13.6 % (11.6-14.8); White Blood Cell Count 6.4 X10^3/uL (4.5-11.0)
[2020-07-07 12:55] LABS: Lactate (Lactic Acid) 0.8 mmol/L (0.7-2.1)
[2020-07-07 12:56] LABS: Alanine Aminotransferase 5 IU/L (<35); Albumin 4.5 g/dL (3.5-5.0); Albumin Globulin Ratio 1.5 (1.0-2.8); Alkaline Phosphatase 87 U/L (38-126); Aspartate Aminotransferase 17 IU/L (14-36); BUN Creatinine Ratio 28.7 (6-22); Bilirubin Total 0.5 mg/dL (0.2-1.3); Blood Urea Nitrogen 27 mg/dL (7-17); Calcium 9.1 mg/dL (8.4-10.2); Carbon Dioxide 31 mmol/L (22-32); Chloride 105 mmol/L (98-107); Estimated Glomerular Filt Rate 58.2 mL/min (>60); Globulin 3.1 g/dL (1.7-4.1); Glucose 110 mg/dL (80-110); HEMOLYSIS < 15 (0-50); Potassium 4.6 mmol/L (3.4-5.1); Sodium 141 mmol/L (137-145); Total Protein 7.6 g/dL (6.3-8.2)
--- NOTE | 2020-07-07 13:08 | PC.NURSE ---
Pt is able to answer yes or no questions appropriately by squeezing hand or blinking. Denies pain. Declined straight cath for urine sample. Pts daughter arrived and said this is not unusual for patient. Usually after taking medications, she improves. Patient does lift hand to wave when I enter the room and can demonstrate using the call light. Pt just appears to not have control over head and neck. Pt also demonstrated a gag reflex when being suctioned by [facility] Sims on arrival.
[2020-07-07 13:12] LABS: COVID19 -Nasal RAPID Negative (Negative)
--- NOTE | 2020-07-07 13:21 | ED_ITS ---
HPI - Altered Mental Status <TESFAYE Gamble - Last Filed: 07/07/20 17:43> General Chief Complaint: Altered Mental Status Stated Complaint: AMS Time Seen by Provider: 07/07/20 12:20 Source: patient Mode of arrival: Ambulatory Limitations: altered mental status History of Present Illness HPI narrative: This is a 74 year female, former smoker, who has past medical history significant for Parkinson's disease, CHF, depression, hypertension, osteoarthritis, CKD stage 3 presents to ED with medics from [facility] in with c/o catatonic state. Patient is usually able to move and walk around with a walker or assistance which she was not able to do this morning. She was not able to take her Parkinson's disease carbidopa/levodopa medication which she takes 6 times a day and a night dose and missed 1030 dose. [facility] call and spoke with BERLIN Austin and was informed that usually patient is more stiff in the morning but not as severe as today that she could not tolerate medication. Patient also has as needed inhaler medication Inbrija 42 mg cap and takes 2 caps PRN when she can't tolerate oral pills upto 5 times a day. Patient is able to communicate with staff by nodding, shakes head and blinking (1-yes, 2-no) and is alert and awake. Patient denies chest pain or breathing difficulty, discomfort which she communicating by blinking. Patient has stridor a like breathing upon arriving by EMS and report given that when she does not have medication in time, she presents with stridor. Related Data Home Medications Medication Instructions Recorded Confirmed acetaminophen 500 mg PO Q6H PRN 03/16/20 03/16/20 baclofen 10 mg PO TID 03/16/20 03/16/20 bupropion HCl 100 mg PO BID 03/16/20 03/16/20 carbidopa-levodopa 1 tab PO Q4H 03/16/20 03/16/20 carbidopa-levodopa 1 tab PO Q8HR PRN 03/16/20 03/16/20 carbidopa-levodopa 2 tab PO QPM 03/16/20 03/16/20 citalopram 20 mg PO DAILY 03/16/20 03/16/20 furosemide 20 mg PO DAILY 03/16/20 03/16/20 gabapentin 300 mg PO TID 03/16/20 03/16/20 levodopa 84 mg INHALATION 5XD 03/16/20 03/16/20 loratadine 10 mg PO DAILY 03/16/20 03/16/20 naproxen sodium [Aleve] 220 mg PO Q8H PRN 03/16/20 03/16/20 rotigotine 4 mg TRANSDERMAL DAILY 03/16/20 03/16/20 trimethobenzamide 300 mg PO Q8HR 03/16/20 03/16/20 Previous Rx's Medication Instructions Recorded aspirin 81 mg PO DAILY #30 tab 03/18/20 atorvastatin [Lipitor] 20 mg PO BEDTIME #30 tab 03/18/20 Allergies Allergy/AdvReac Type Severity Reaction Status Date / Time acetaminophen [From Percocet] Allergy Verified 07/07/20 12:32 oxycodone [From Percocet] Allergy Verified 07/07/20 12:32 Review of Systems <TESFAYE Gamble - Last Filed: 07/07/20 17:43> Review of Systems Narrative: HEENT: See HPI Respiratory: See HPI Cardiovascular: Denies chest pain. Gastrointestinal: Denies nausea, vomiting, abdominal pain. : Denies dysuria, frequency, incontinence, hematuria, urinary retention. Musculoskeletal: See HPI Neurologic: See HPI Patient History <TESFAYE Gamble - Last Filed: 07/07/20 17:43> Medical History (Updated 07/07/20 @ 17:09 by TESFAYE Gamble) CHF (congestive heart failure) CKD (chronic kidney disease) stage 3, GFR 30-59 ml/min GERD (gastroesophageal reflux disease) Hallucination History of frequent headaches Hx of cancer of uterus Hypertension Osteoarthritis Parkinsons disease Spondylolysis of cervical region Surgical History (Updated 03/16/20 @ 23:57 by TESFAYE Lee) H/O: hysterectomy Hx of tooth extraction Hx of total knee replacement Family History (Updated 03/16/20 @ 23:02 by TESFAYE Lee) Mother Lung cancer Father Myocardial infarction Social History household members: none Smoking Status: Former smoker alcohol intake: never Smoking Status: Former smoker Substance Use Type: does not use Exam <TESFAYE Gamble - Last Filed: 07/07/20 17:43> Narrative Exam Narrative: GEN: Alert and awake, able to communicate with the staff by blinking eyes (yes vs. no). Stridor upper airway noise. Head: Normal cephalic, atraumatic. No scalp or temporal tenderness, palpable mass or rash. EYES: Pupils are equal, round, and reactive to light. There is no subconjunctival hemorrhage, exudate and sclera non-icteric. ENT: Hearing grossly intact. Nose without bleeding, purulent discharge or dev iation. Mucous membrane dry and unable to close mouth. Noted dry white discoloration likely from medication in mucous membrane and tongue. Patient has gag reflex. Uvula in midline. Neck: Trachea in midline. No JVD, non-tender without lymphadenopathy. No masses or thyroid megaly. Supple, non-tender and no meningeal signs. CARDIAC: Normal regular rate and rhythm without murmurs, gallops, or rubs. No chest wall tenderness. No peripheral edema, cyanosis or pallor. Capillary refill is less than 2 seconds. RESPIRATORY: Transmitted stridor noise to auscultate in all lobes. No cough, wheezes, rales, or rhonchi. No tachypnea, increase work of breathing, or accessary muscle used. ABD: Abdomen soft, nontender and non-distended. No guarding or rebound tenderness to palpate. Bowel sounds are normal in all 4 quadrants. There is no palpable masses or organomegaly. EXT: Full painless ROM of all extremities with no loss of sensation, strength, effusion or edema. SKIN: Warm, dry, normal color for patient. No erythema, lesions or rash over visible areas. BACK: Nontender without deformity or crepitance. No flank tenderness. NEUROLOGICAL: Awake and alert. No facial droops, dysphasia. Initial Vital Signs Initial Vital Signs: Vital Signs Pulse Rate 78 07/07/20 12:21 Respiratory Rate 15 07/07/20 12:21 Pulse Oximetry 94 07/07/20 12:21 <Bonnie Lord DO - Last Filed: 07/10/20 23:29> Initial Vital Signs Initial Vital Signs: Vital Signs Pulse Rate 78 07/07/20 12:21 Respiratory Rate 15 07/07/20 12:21 Pulse Oximetry 94 07/07/20 12:21 Scores <GUALBERTO GambleP - Last Filed: 07/07/20 17:43> GCS [place] coma scale eye opening: Spontaneous [place] coma scale verbal response: Orientated [place] coma scale motor response: Obey commands [place] coma scale total score: 15 Course <TESFAYE Gamble - Last Filed: 07/07/20 17:43> Orders Ordered: Discontinued Medications Carbidopa/Levodopa (Carbidopa-Levodopa 25/100 Tablet) 1 each PO NOW ONE Stop: 07/07/20 13:27 Last Admin: 07/07/20 16:10 Dose: 1 each Documented by: ELSA Carbidopa/Levodopa (Carbidopa-Levodopa 10/100 Tablet) 1 each PO NOW ONE Stop: 07/07/20 16:53 Last Admin: 07/07/20 17:42 Dose: 1 each Documented by: ELSA Reevaluation(s) Reevaluation #1: Daughter arrived shortly after the patient's arrival. Daughter brought Inbrija and has it in her car. Daughter states patient had similar presentation in the past and had used Inbrija in the past when she was not able to tolerate oral medication. Daughter reports the patient did very well up until yesterday and they went to [employer] shopping. She informed that in the past she was able to put her mouth around the mouth piece to inhale the medication however. Daughter assisting with the medication at bedside. Time: 13:15 Reevaluation #2: Patient received the 2nd dose of Inbrija with RN and Daughter's assistance. Patient is able to move bilateral arms to reach up to grab my hand when I stroked her neck to help her swallow her own oral secretion and to encourage to swallow. However, she still has stridor with breathing and difficulty swallowing saliva. After patient attempted manage her own secretion, she had coughing spells. Patient nod her head when asked improvement of her symptoms. Will try to reach out to Murphy Steen (Neurologist) at [facility] who manages patient's Parkinson's disease. Time: 14:35 Reevaluation #3: #3rd Inbrija administered by daughter at bedside after oral suction done. Time: 15:30 Additional Reevaluation(s): 1630-Patient was able to tolerate 3 bites of yogurt, able to manage her own secretion and has clearer speech at this time. Consultations Consultation #1: Spoke with Dr. Ken with physical finding on patient is not able to swallow and manage her own oral secretion and to medicate patient orally. He recommended NGT or OJT to medicate patient oral Sinemet a few doses whether this will improve the patient's condition as a temporarily measure and to admit the patient for monitoring over night or so. If no improvement then the patient can decide for non invasive and pallative care. Also, recommended urine test to rule out UTI. Discussed these recommendations with patient and daughter. Patient sitting up in bed and after listening the recommendations she declines these by shaking her head and putting a hand up to stop sign. continue to breathe with stridor. Vital Signs Vital signs: Vital Signs - 8 hr 07/07/20 12:21 07/07/20 12:22 07/07/20 12:30 Temperature Pulse Rate 78 79 77 Respiratory Rate 15 12 15 Blood Pressure 160/86 H 166/87 H Pulse Oximetry 94 94 93 07/07/20 12:32 07/07/20 13:00 07/07/20 13:30 Temperature 98.0 F Pulse Rate 77 79 79 Respiratory Rate 22 12 14 Blood Pressure 166/67 H 161/79 H 169/85 H Pulse Oximetry 93 95 94 <Bonnie Lord, - Last Filed: 07/10/20 23:29> Orders Ordered: Discontinued Medications Carbidopa/Levodopa (Carbidopa-Levodopa 25/100 Tablet) 1 each PO NOW ONE Stop: 07/07/20 13:27 Last Admin: 07/07/20 16:10 Dose: 1 each Documented by: ELSA Carbidopa/Levodopa (Carbidopa-Levodopa 10/100 Tablet) 1 each PO NOW ONE Stop: 07/07/20 16:53 Last Admin: 07/07/20 17:42 Dose: 1 each Documented by: ELSA Vital Signs Vital signs: Vital Signs - 8 hr 07/07/20 12:21 07/07/20 12:22 07/07/20 12:30 Temperature Pulse Rate 78 79 77 Respiratory Rate 15 12 15 Blood Pressure 160/86 H 166/87 H Pulse Oximetry 94 94 93 07/07/20 12:32 07/07/20 13:00 07/07/20 13:30 Temperature 98.0 F Pulse Rate 77 79 79 Respiratory Rate 22 12 14 Blood Pressure 166/67 H 161/79 H 169/85 H Pulse Oximetry 93 95 94 MDM - Altered Mental Status <GUALBERTO GambleP - Last Filed: 07/07/20 17:43> Differential Diagnosis Differential diagnosis: Likely altered mental status, hypoglycemia and sepsis (Parkinson's disease, electrolyte imblance, UTI, infection) Medical Records Attestation: I reviewed the patient's medical records. Lab Data Attestation: I reviewed the patient's lab results. Result diagrams: 07/07/20 12:30 07/07/20 12:30 Labs: Lab Results 07/07/20 07/07/20 07/07/20 Range/Units 12:30 12:30 12:30 WBC 6.4 (4.5-11.0) X10^3/uL RBC 3.93 L (4.0-5.2) X10^6/uL Hgb 11.6 L (12.0-16.0) g/dL Hct 36.0 (36-46) % MCV 91.7 (80-100) fL MCH 29.4 (26-34) PG MCHC 32.1 (30-36) % RDW 13.6 (11.6-14.8) % Plt Count 266 (150-400) X10^3/uL Neut % (Auto) 78.2 H (50-75) % Lymph % (Auto) 11.7 L (25-40) % [place] % (Auto) 8.9 (3-14) % Eos % (Auto) 0.8 L (2-4) % Baso % (Auto) 0.4 (0-2) % Neut # (Auto) 5000 (0638-2748) /uL Lymph # (Auto) 700 L (2581-9160) /uL [place] # (Auto) 600 (0-900) /uL Eos # (Auto) 0 (0-450) /uL Baso # (Auto) 0 (0-100) /uL Sodium 141 (137-145) mmol/L Potassium 4.6 (3.4-5.1) mmol/L Chloride 105 (98-107) mmol/L Carbon Dioxide 31 (22-32) mmol/L BUN 27 H (7-17) mg/dL Creatinine 0.94 (0.52-1.04) mg/dL Estimated GFR 58.2 L (>60) mL/min BUN/Creatinine Ratio 28.7 H (6-22) Glucose 110 (80-110) mg/dL Lactate 0.8 (0.7-2.1) mmol/L Calcium 9.1 (8.4-10.2) mg/dL Total Bilirubin 0.5 (0.2-1.3) mg/dL AST 17 (14-36) IU/L ALT 5 (<35) IU/L Alkaline Phosphatase 87 (38-126) U/L Total Protein 7.6 (6.3-8.2) g/dL Albumin 4.5 (3.5-5.0) g/dL Globulin 3.1 (1.7-4.1) g/dL Albumin/Globulin Ratio 1.5 (1.0-2.8) SARS-CoV-2 (PCR) (Negative) 07/07/20 Range/Units 12:45 WBC (4.5-11.0) X10^3/uL RBC (4.0-5.2) X10^6/uL Hgb (12.0-16.0) g/dL Hct (36-46) % MCV (80-100) fL MCH (26-34) PG MCHC (30-36) % RDW (11.6-14.8) % Plt Count (150-400) X10^3/uL Neut % (Auto) (50-75) % Lymph % (Auto) (25-40) % [place] % (Auto) (3-14) % Eos % (Auto) (2-4) % Baso % (Auto) (0-2) % Neut # (Auto) (3493-3898) /uL Lymph # (Auto) (7256-7139) /uL [place] # (Auto) (0-900) /uL Eos # (Auto) (0-450) /uL Baso # (Auto) (0-100) /uL Sodium (137-145) mmol/L Potassium (3.4-5.1) mmol/L Chloride (98-107) mmol/L Carbon Dioxide (22-32) mmol/L BUN (7-17) mg/dL Creatinine (0.52-1.04) mg/dL Estimated GFR (>60) mL/min BUN/Creatinine Ratio (6-22) Glucose (80-110) mg/dL Lactate (0.7-2.1) mmol/L Calcium (8.4-10.2) mg/dL Total Bilirubin (0.2-1.3) mg/dL AST (14-36) IU/L ALT (<35) IU/L Alkaline Phosphatase (38-126) U/L Total Protein (6.3-8.2) g/dL Albumin (3.5-5.0) g/dL Globulin (1.7-4.1) g/dL Albumin/Globulin Ratio (1.0-2.8) SARS-CoV-2 (PCR) Negative (Negative) Imaging Data Chest x-ray: Radiologist's Impression: [address] [id number] ReportSigned Patient: Faye Harris DMR#: [id number]: 6Acct:[id number]/Sex: 74 / FDate of Service: 07/07/20Loc: EDAccession Number: [id number] Procedure: XR chest 1V Ordering Provider: Levi Cabezas PROCEDURE: XR CHEST 1V INDICATIONS: altered mental status TECHNIQUE: One view of the chest was acquired. COMPARISON: None. FINDINGS: Surgical changes and devices: Surgical clips are seen in right upper quadrant abdomen.. Lungs and pleura: Scarring/atelectasis at left lung base is seen. No pleural effusions or pneumothorax. Mediastinum: Tortuous thoracic aorta is seen. Heart size is enlarged. Bones and chest wall: No suspicious bony lesions. Overlying soft tissues appear unremarkable. IMPRESSION: Left basilar scarring/atelectasis. No focal infiltrate, pleural effusion or pneumothorax. Dictated by: Serafin Mendes M.D. on 07/07/2020 at 13:13 Approved by: Serafin Mendes M.D. on 07/07/2020 at 13:14 [facility] Narrative Medical decision making narrative: This is a 74 year old female who has past medical history significant for Parkinson's disease presents to ED with EMS with increased catatonic state and is unable to take oral Sinemet this morning due to difficulty swallowing. Labs are assuring. Chest x-ray without acute findings. No leukocytosis or elevated lactate. Patient refused urine catheterization. Patient used inhalation medication Inbrija 3 doses with some improvement on speech, swallowing, and movments. Consulted Dr. Ken, neurologist, with recommendations of NGT/OJT to medicate the patient. She agrees with a trial after discussing this with the daughter. However, her symptoms improved and was able to take routine Sinemet dose finally before the NGT insertion. When her symptoms improves after the another additional PRN dose, patient plan to dc to home as the patient's wish. Advised the patient to follow up with PCP and neurologist for further evaluation if medication dose/schedule requires the adjustment. Chavez patient signed out to Dr. Lord. <Bonnie Lord, DO - Last Filed: 07/10/20 23:29> Lab Data Labs: Lab Results 07/07/20 07/07/20 07/07/20 Range/Units 12:30 12:30 12:30 WBC 6.4 (4.5-11.0) X10^3/uL RBC 3.93 L (4.0-5.2) X10^6/uL Hgb 11.6 L (12.0-16.0) g/dL Hct 36.0 (36-46) % MCV 91.7 (80-100) fL MCH 29.4 (26-34) PG MCHC 32.1 (30-36) % RDW 13.6 (11.6-14.8) % Plt Count 266 (150-400) X10^3/uL Neut % (Auto) 78.2 H (50-75) % Lymph % (Auto) 11.7 L (25-40) % [place] % (Auto) 8.9 (3-14) % Eos % (Auto) 0.8 L (2-4) % Baso % (Auto) 0.4 (0-2) % Neut # (Auto) 5000 (5262-8414) /uL Lymph # (Auto) 700 L (1215-2289) /uL [place] # (Auto) 600 (0-900) /uL Eos # (Auto) 0 (0-450) /uL Baso # (Auto) 0 (0-100) /uL Sodium 141 (137-145) mmol/L Potassium 4.6 (3.4-5.1) mmol/L Chloride 105 (98-107) mmol/L Carbon Dioxide 31 (22-32) mmol/L BUN 27 H (7-17) mg/dL Creatinine 0.94 (0.52-1.04) mg/dL Estimated GFR 58.2 L (>60) mL/min BUN/Creatinine Ratio 28.7 H (6-22) Glucose 110 (80-110) mg/dL Lactate 0.8 (0.7-2.1) mmol/L Calcium 9.1 (8.4-10.2) mg/dL Total Bilirubin 0.5 (0.2-1.3) mg/dL AST 17 (14-36) IU/L ALT 5 (<35) IU/L Alkaline Phosphatase 87 (38-126) U/L Total Protein 7.6 (6.3-8.2) g/dL Albumin 4.5 (3.5-5.0) g/dL Globulin 3.1 (1.7-4.1) g/dL Albumin/Globulin Ratio 1.5 (1.0-2.8) SARS-CoV-2 (PCR) (Negative) 07/07/20 Range/Units 12:45 WBC (4.5-11.0) X10^3/uL RBC (4.0-5.2) X10^6/uL Hgb (12.0-16.0) g/dL Hct (36-46) % MCV (80-100) fL MCH (26-34) PG MCHC (30-36) % RDW (11.6-14.8) % Plt Count (150-400) X10^3/uL Neut % (Auto) (50-75) % Lymph % (Auto) (25-40) % [place] % (Auto) (3-14) % Eos % (Auto) (2-4) % Baso % (Auto) (0-2) % Neut # (Auto) (9621-4955) /uL Lymph # (Auto) (8564-1850) /uL [place] # (Auto) (0-900) /uL Eos # (Auto) (0-450) /uL Baso # (Auto) (0-100) /uL Sodium (137-145) mmol/L Potassium (3.4-5.1) mmol/L Chloride (98-107) mmol/L Carbon Dioxide (22-32) mmol/L BUN (7-17) mg/dL Creatinine (0.52-1.04) mg/dL Estimated GFR (>60) mL/min BUN/Creatinine Ratio (6-22) Glucose (80-110) mg/dL Lactate (0.7-2.1) mmol/L Calcium (8.4-10.2) mg/dL Total Bilirubin (0.2-1.3) mg/dL AST (14-36) IU/L ALT (<35) IU/L Alkaline Phosphatase (38-126) U/L Total Protein (6.3-8.2) g/dL Albumin (3.5-5.0) g/dL Globulin (1.7-4.1) g/dL Albumin/Globulin Ratio (1.0-2.8) SARS-CoV-2 (PCR) Negative (Negative) Discharge Plan Departure Patient Disposition: Home Clinical Impression: Parkinsons disease Dysphagia Qualifiers: Dysphagia type: oropharyngeal phase Qualified Code(s): R13.12 - Dysphagia, oropharyngeal phase Instructions: DI for Parkinson Disease, DI for Oropharyngeal Dysphagia Activity Restrictions/Additional Instructions: You have been diagnosed with [Parkinson's disease and dysphagia which is likely due to Parkinson's disease]. What to do: *Take your medications as directed. When you cannot tolerate oral medications, try Inbrija and you can use this upto many times in 24 hr period and when symptoms improve you can take oral medication. Avoid skipping medication. *Follow up with your primary care provider in 2-3 days, call for an appointment. Let them know you were seen in the ED and that we asked you to be seen in follow up. Please follow-up with neurologist Dr. Ken whether medication dose or schedule needs adjustment. *Return to ED if you have any new, worsening, or concerning symptoms, such as [chest pain, breathing difficulty, unable to tolerate medications, fever or any acute concerns]. Prescriptions: No Action carbidopa-levodopa 25-250 mg Tablet 1 tab PO Q4H RF: 0 carbidopa-levodopa 50-200 mg Tablet Extended Release 2 tab PO QPM RF: 0 acetaminophen 500 mg Tablet 500 mg PO Q6H PRN (Reason: Pain (Scale Score 1-3)) RF: 0 bupropion HCl 100 mg Tablet 100 mg PO BID RF: 0 citalopram 20 mg Tablet 20 mg PO DAILY RF: 0 baclofen 10 mg Tablet 10 mg PO TID RF: 0 carbidopa-levodopa 10-100 mg Tablet 1 tab PO Q8HR PRN (Reason: Parkinsonism) RF: 0 gabapentin 300 mg Capsule 300 mg PO TID RF: 0 furosemide 20 mg Tablet 20 mg PO DAILY RF: 0 trimethobenzamide 300 mg Capsule 300 mg PO Q8HR RF: 0 rotigotine 4 mg/24 hour Patch 24 Hour 4 mg TRANSDERMAL DAILY RF: 0 loratadine 10 mg Capsule 10 mg PO DAILY RF: 0 naproxen sodium [Aleve] 220 mg Capsule 220 mg PO Q8H PRN (Reason: Pain (Scale Score 1-3)) RF: 0 levodopa 42 mg Capsule, W/Inhalation Device 84 mg INHALATION 5XD RF: 0 atorvastatin [Lipitor] 20 mg Tablet 20 mg PO BEDTIME Qty: 30 RF: 0 aspirin 81 mg Tablet,Delayed Release (Dr/Ec) 81 mg PO DAILY Qty: 30 RF: 0 Referrals: Murphy Ken MD [Non-Staff] - Vale Lopez MD [Physician] - <Bonnie Lord DO - Last Filed: 07/10/20 23:29> Cosign ED Attending Cosignature Attestation: I was immediately available in the department for consultation. Documentation has been reviewed. I agree with assessment and plan.
--- NOTE | 2020-07-07 14:15 | PC.NURSE ---
1330: Daughter assisted pt to get inhaled home med. Daughter reports pt was unable to correctly seal mouth around inhaler so she doesn't know if the med was actually administered. MD aware. 1400: Suctioned secretions and then assisted to create seal around inhaler with daughter to give inhaled med for parkinsons. MD notified.
[2020-07-07] MEDS: CARBIDOPA-LEVODOPA 25/100 TABLET 1 EACH PO (16:10)
[2020-07-07] MEDS: CARBIDOPA-LEVODOPA 10/100 TABLET 1 EACH PO (17:42)
== END 2020-07-07 18:05 | disposition home or self-care (01) ==
PROVIDERS: Emergency Provider Nurse Practitioner Family
DX: G20 Parkinson's disease (principal); R13.12 Dysphagia, oropharyngeal phase; R41.82 Altered mental status, unspecified; I50.9 Heart failure, unspecified; I10 Essential (primary) hypertension; N18.30 Chronic kidney disease, stage 3 unspecified; Z20.822 Contact with and (suspected) exposure to COVID-19
CPT/HCPCS: 36415; 71045; 80053; 83605; 85025; 87635; 99283; 99284; C9803

== ENCOUNTER → 2020-09-23 11:45 | Outpatient (CLI) | payer MEDICARE, OTHER, SELFPAY ==
[2020-03-16 19:01] VITALS: BMI 31.4
--- NOTE | 2020-09-23 | DI.RAD.S_ITS ---
PROCEDURE: XR HIP W PEL IF DONE LT 2V INDICATIONS: LEFT HIP PAIN TECHNIQUE: AP pelvis with lateral view(s) of the left hip(s). COMPARISON: None. FINDINGS: Bones: No fractures or dislocations. Severe left hip joint osteoarthritis is seen. Mild to moderate right hip joint osteoarthritis is also noted. No evidence of avascular necrosis of femoral head. Pelvic ring appears intact. Degenerative disc disease in visualized lower lumbar spine is seen. No suspicious bony lesions. Soft tissues: The visualized bowel gas pattern is normal. No suspicious soft tissue calcifications. IMPRESSION: Asymmetric severe left hip joint osteoarthritis and mild to moderate right hip joint osteoarthritis. No acute left hip fracture or dislocation. No evidence of avascular necrosis. Dictated by: Serafin Mendes M.D. on 09/23/2020 at 15:44 Approved by: Serafin Mendes M.D. on 09/23/2020 at 15:45
== END ==
PROVIDERS: PCP Internal Medicine; Referring Provider Internal Medicine; Visit Provider Internal Medicine
DX: M25.552 Pain in left hip (principal); M16.0 Bilateral primary osteoarthritis of hip
CPT/HCPCS: 73502

== ENCOUNTER 2021-02-22 12:01 | Inpatient (IN) | payer MEDICARE, OTHER, SELFPAY ==
[2020-03-16 19:01] VITALS: BMI 31.4
[2021-02-22] VITALS (36 sets, daily range): BP systolic 141–215; BP diastolic 69–102; PULSE 63–95; RESP 9–25; TEMP 36.7–37.4; O2SAT 85–100; BMI 22.8
--- NOTE | 2021-02-22 | DI.RAD.S_ITS ---
PROCEDURE: XR CHEST 1V INDICATIONS: sob, aspiration TECHNIQUE: One view of the chest was acquired. COMPARISON: [facility], CR, XR CHEST 1V, 07/07/2020, 12:59. FINDINGS: Surgical changes and devices: Clips are present overlying the right upper quadrant. Lungs and pleura: Lungs are clear. No pleural effusions or pneumothorax. Mediastinum: Mediastinal contours appear normal. Heart size is normal. Bones and chest wall: No suspicious bony lesions. Overlying soft tissues appear unremarkable. IMPRESSION: No acute pulmonary process. Dictated by: Lluvia Olmos M.D. on 02/22/2021 at 20:27 Approved by: Lluvia Olmos M.D. on 02/22/2021 at 20:27
--- NOTE | 2021-02-22 12:17 | ED.NEUROSD ---
HPI - Neuro Symptoms/Deficit General Chief Complaint: Neuro Symptoms/Deficit Stated Complaint: Possible stroke Time Seen by Provider: 02/22/21 12:08 Source: patient and EMS Mode of arrival: EMS (BLS) Limitations: no limitations History of Present Illness HPI Narrative: Patient is a 75-year-old female. Not on anticoagulation. Has a history of Parkinson's disease. Arrived to the emergency department by BLS for concerns of difficulty in responding. Unknown when her last known normal was. Patient arrived by BLS. They report that any confusion that she was having seems to be improving in route to the ER. Patient states that she is here because she was having some problems writing and also swallowing. Somewhat difficult to understand with the patient was describing. She was talking about trying to write something yesterday and getting the letters mixed up. She also was describing a situation where she was trying to say something to other people around her and they did not know what she was talking about. She also stated that she was having some problems swallowing earlier today when she was getting her Parkinson's medications. She does not feel like she is having any problems swallowing now. She denies headache. Denies vision changes. Denies sore throat. Denies chest pain. Denies abdominal pain. Denies shortness of breath. No nausea vomiting. No upper lower extremity discomfort. On Anticoagulants: No Related Data Home Medications Medication Instructions Recorded Confirmed acetaminophen 500 mg tablet 500 mg PO Q6H PRN 03/16/20 03/16/20 baclofen 10 mg tablet 10 mg PO TID 03/16/20 03/16/20 bupropion HCl 100 mg tablet 100 mg PO BID 03/16/20 03/16/20 carbidopa 10 mg-levodopa 100 mg 1 tab PO Q8HR PRN 03/16/20 03/16/20 tablet carbidopa 25 mg-levodopa 250 mg 1 tab PO Q4H 03/16/20 03/16/20 tablet carbidopa ER 50 mg-levodopa 200 mg 2 tab PO QPM 03/16/20 03/16/20 tablet,extended release citalopram 20 mg tablet 20 mg PO DAILY 03/16/20 03/16/20 furosemide 20 mg tablet 20 mg PO DAILY 03/16/20 03/16/20 gabapentin 300 mg capsule 300 mg PO TID 03/16/20 03/16/20 levodopa 42 mg capsule with 84 mg INHALATION 5XD 03/16/20 03/16/20 inhalation device loratadine 10 mg capsule 10 mg PO DAILY 03/16/20 03/16/20 naproxen sodium 220 mg capsule 220 mg PO Q8H PRN 03/16/20 03/16/20 (Aleve) rotigotine 4 mg/24 hour 4 mg TRANSDERMAL DAILY 03/16/20 03/16/20 transdermal 24 hour patch trimethobenzamide 300 mg capsule 300 mg PO Q8HR 03/16/20 03/16/20 Previous Rx's Medication Instructions Recorded aspirin 81 mg tablet,delayed 81 mg PO DAILY #30 tab 03/18/20 release atorvastatin 20 mg tablet (Lipitor) 20 mg PO BEDTIME #30 tab 03/18/20 Allergies Allergy/AdvReac Type Severity Reaction Status Date / Time oxycodone [From Percocet] Allergy Verified 02/22/21 12:13 Review of Systems Constitutional Constitutional: Reports as per HPI and Reports system reviewed and no additional complaints, except as documented ENT Ears, Nose, Mouth, and Throat: Reports system reviewed and no additional complaints, except as documented and Reports as per HPI Cardiovascular Cardiovascular: Reports as per HPI Respiratory Respiratory: Reports as per HPI Gastrointestinal Gastrointestinal: Reports as per HPI Musculoskeletal Musculoskeletal: Reports as per HPI Integumentary/Breasts Skin/Breast: Reports system reviewed and no additional complaints, except as documented Neurologic Neurologic: Reports as per HPI Hematologic/Lymphatic On Anticoagulants: No Allergic/Immunologic Allergic/Immunologic: Reports system reviewed and no additional complaints, except as documented Patient History Medical History CHF (congestive heart failure) CKD (chronic kidney disease) stage 3, GFR 30-59 ml/min GERD (gastroesophageal reflux disease) Hallucination History of frequent headaches Hx of cancer of uterus Hypertension Osteoarthritis Parkinsons disease Spondylolysis of cervical region Surgical History (Updated 03/16/20 @ 23:57 by TESFAYE Lee) H/O: hysterectomy Hx of tooth extraction Hx of total knee replacement Family History (Updated 03/16/20 @ 23:02 by TESFAYE Lee) Mother Lung cancer Father Myocardial infarction Social History household members: none Smoking Status: Former smoker alcohol intake: never Smoking Status: Former smoker Substance Use Type: does not use Exam Initial Vital Signs Initial Vital Signs: Vital Signs Pulse Rate 75 02/22/21 12:12 Pulse Oximetry 93 02/22/21 12:12 Const General: cooperative and comfortable HENMT Head: normal to inspection and normocephalic Eyes Pupils: PERRL Resp Effort & Inspection: normal respiratory effort Auscultation: clear to auscultation bilaterally Cardio Rate: regular rate Rhythm: regular rhythm GI Inspection: normal to inspection Skin General: no rashes or lesions noted Neuro Cranial Nerves: CN's II-XI intact bilaterally Other: Patient is oriented to person, date and place. Depending on what issue that she presents with to the emergency department will determine whether not she is having confusion about why she is here. It is somewhat difficult to understand her speech however I feel that this is most likely related to underlying Parkinson's. She is not slurring her words. She does follow commands. Does have limited mobility of her lower extremities. Has equal strength lower extremities and upper extremities. Extrem General: capillary refill normal Psych Appearance: grossly normal and well kempt Scores GCS [place] coma scale eye opening: Spontaneous Susy coma scale verbal response: Orientated Susy coma scale motor response: Obey commands Susy coma scale total score: 15 Course Orders Ordered: ED Orders 02/22/21 12:22 CT head/brain wo con Stat 02/22/21 12:48 Basic Metabolic Panel Stat Complete Blood Count AUTO DIFF Stat 02/22/21 12:51 EKG-12 Lead Stat 02/22/21 14:47 COVID19 - ADMIT (PRODUCTION ADMINISTRATOR swab/PCR) Stat Sodium Chloride (Normal Saline 0.9%) 1,000 mls @ 100 mls/hr IV CONT SAMANTHA Last Admin: 02/22/21 14:30 Dose: 100 mls/hr Documented by: FINA Discontinued Medications Carbidopa/Levodopa (Carbidopa-Levodopa 25/250 Tablet) 1 each PO NOW ONE Stop: 02/22/21 13:35 Last Admin: 02/22/21 14:41 Dose: Not Given Documented by: FINA Diazepam (Diazepam 10 Mg/2 Ml Syringe) 2 mg IV NOW ONE Stop: 02/22/21 14:22 Last Admin: 02/22/21 14:25 Dose: 2 mg Documented by: FINA Labetalol HCl (Labetalol 20 Mg/4 Ml Syringe) 10 mg IV NOW ONE Stop: 02/22/21 16:48 Last Admin: 02/22/21 17:00 Dose: 10 mg Documented by: EVERARDO Vital Signs Vital signs: Vital Signs - 8 hr 02/22/21 12:12 02/22/21 12:14 02/22/21 12:33 Temperature 99.4 F Pulse Rate 75 80 73 Respiratory Rate 20 Blood Pressure 174/81 H Pulse Oximetry 93 93 93 02/22/21 12:34 02/22/21 12:51 02/22/21 12:56 Temperature Pulse Rate 73 77 72 Respiratory Rate Blood Pressure 152/70 H 206/96 H 190/88 H Pulse Oximetry 93 93 94 02/22/21 13:00 02/22/21 13:30 02/22/21 14:00 Temperature Pulse Rate 74 75 63 Respiratory Rate 19 23 Blood Pressure 178/76 H 194/90 H Pulse Oximetry 93 96 91 02/22/21 14:01 02/22/21 14:30 02/22/21 14:33 Temperature Pulse Rate 65 78 80 Respiratory Rate 23 12 20 Blood Pressure 185/83 H 189/99 H Pulse Oximetry 92 99 98 02/22/21 15:00 02/22/21 15:30 02/22/21 16:00 Temperature Pulse Rate 70 76 72 Respiratory Rate 9 L 12 14 Blood Pressure 166/77 H 206/94 H 201/102 H Pulse Oximetry 99 99 100 02/22/21 16:28 02/22/21 16:47 02/22/21 17:00 Temperature Pulse Rate 74 71 Respiratory Rate 13 Blood Pressure 188/89 H 202/97 H Pulse Oximetry 98 98 MDM - Neuro Symptoms/Deficit Medical Records Attestation: I reviewed the patient's medical records. Lab Data Attestation: I reviewed the patient's lab results. Result diagrams: 02/22/21 12:48 02/22/21 12:48 Labs: Lab Results 02/22/21 02/22/21 02/22/21 Range/Units 12:48 12:48 14:47 WBC 7.5 (4.5-11.0) X10^3/uL RBC 3.82 L (4.0-5.2) X10^6/uL Hgb 11.4 L (12.0-16.0) g/dL Hct 35.3 L (36-46) % MCV 92.3 (80-100) fL MCH 29.8 (26-34) PG MCHC 32.3 (30-36) % RDW 14.8 (11.6-14.8) % Plt Count 305 (150-400) X10^3/uL Neut % (Auto) 74.1 (50-75) % Lymph % (Auto) 14.8 L (25-40) % [place] % (Auto) 9.5 (3-14) % Eos % (Auto) 1.0 L (2-4) % Baso % (Auto) 0.6 (0-2) % Neut # (Auto) 5500 (6954-1843) /uL Lymph # (Auto) 1100 (7830-8925) /uL [place] # (Auto) 700 (0-900) /uL Eos # (Auto) 100 (0-450) /uL Baso # (Auto) 0 (0-100) /uL Sodium 141 (137-145) mmol/L Potassium 4.1 (3.4-5.1) mmol/L Chloride 103 (98-107) mmol/L Carbon Dioxide 30 (22-32) mmol/L BUN 20 H (7-17) mg/dL Creatinine 0.93 (0.52-1.04) mg/dL Estimated GFR 58.8 L (>60) mL/min BUN/Creatinine Ratio 21.5 (6-22) Glucose 99 (80-110) mg/dL Calcium 9.2 (8.4-10.2) mg/dL SARS-CoV-2 (PCR) Negative (Negative) Imaging Data CT scan - head: Radiologist's Impression: Launch?[place] [address] CT Scan Report Signed Patient: Faye Harris MR#: [id number] : 1945 Acct:[id number] Age/Sex: 75 / F Date of Service: 02/22/21 Loc: ED Accession Number: [id number] ?? Procedure: CT head/brain wo con Ordering Provider: Teddy Greenwood D.O. PROCEDURE:? CT HEAD/BRAIN WO CON ? INDICATIONS:? confusion, problems swallowing ? TECHNIQUE:? Noncontrast 4.5 mm thick angled axial sections acquired from the foramen magnum to the vertex, with coronal and sagittal reformats.? For radiation dose reduction, the following was used:? automated exposure control, adjustment of mA and/or kV according to patient size.? ? COMPARISON:? August 07, 2020. ? FINDINGS:? Image quality:? Excellent.? ? CSF spaces:? Basal cisterns are patent.? No extra-axial fluid collections.? Ventricles are normal in size and shape.? ? Brain:? Persistent right parietal hypoattenuating area, which may reflect encephalomalacia/gliosis.? No midline shift.? No intracranial masses or hemorrhage.? Blackwood-white matter interface is normal.? ? Skull and face:? Calvarium and visualized facial bones are intact, without suspicious lesions.? ? Sinuses:? Mucosal thickening in the left chamber of the sphenoid sinus.? The remaining sinuses and mastoids are clear.? ? IMPRESSION:? No acute intracranial abnormality. ? ? Dictated by: Carlton Dumont M.D. on 02/22/2021 at 12:36 ? ? Approved by: Carlton Dumont M.D. on 02/22/2021 at 12:39?? ECG Data Attestation: I personally reviewed and interpreted this ECG as follows: Interpretation: Sinus rhythm Ventricular rate of 76 Normal axis Normal QRS Normal QTC No ST T wave changes MDM Narrative Medical decision making narrative: 75-year-old female. Somewhat difficult to know exactly why she was sent to the emergency department. The reports of potential confusion. She states that was because she was having problems swallowing and problems writing words however she describes this problem with writing words may have been a couple days ago. Patient does have a history of Parkinson's disease. Only got half of her Parkinson dose this morning because of this problems with swallowing. Review of her medical records show that this has happened to her in the past. She does have an inhaled version of carbidopa/levodopa. This did not come with her from her living facility and we do not have it here and pharmacy. Patient does know where she is although potentially is somewhat confused about why she is here. She knows her name. She can follow commands. Her physical exam is consistent with an individual who has Parkinson's disease. She can wiggle her toes yet has some difficulty raising her legs up off the bed. Her head CT shows no signs of acute stroke. I feel that this is less likely given her presentation. I feel that this is more likely related to her Parkinson's disease. During her stay she did seem to improve. She was able to swallow a small amount of applesauce. We were in the process of giving her her 1330 dose of carbidopa levodopa when she had an episode of what appeared to be neck spasms. She did have what appeared to be stridor. She did become somewhat hypoxic during this time. She was still able to follow commands and did express with squeezing her hands that she was not having problems breathing and not having chest pain. She was placed on oxygen and this helped her O2 saturations. We did evaluate her mouth and did not see any foreign body. She was given 1 mg of Valium in the seem to help her symptoms quite a bit. She also had a upper trend of blood pressures. She does not carry a diagnosis of hypertension that I can see and I do not see any antihypertensive medications on her medicine list. I had ordered labetalol for her for this issue however just prior to labetalol being given a repeat blood pressure was taken in her systolic was 135. We will hold on given this medication for now. I have low suspicion for sepsis. No antibiotics were administered. I did discuss the case with her neurologist. He stated that she occasionally gets these spasms. Very often they get better on their own. He did state that it is important that she does not miss doses of her carbidopa/levodopa. He stated that he has had conversations with the family in the past about potential NG tube/G-tube for these medications. I do have concern about her taking her medications orally and concern for aspiration. I discussed the case with Dr. joseph on-call for Internal Medicine who will admit for further evaluation and treatment. Patient's family will bring her medications from the living facility so that they can be administered here while inpatient. I did inform the patient that she was being admitted. She did express that she understood this. Discharge Plan Departure Patient Disposition: Admitted As Inpatient Clinical Impression: Parkinsons disease, Dysphagia, Hypertension Admit Date/Time: 02/22/21 17:21 Admit Provider: Janette Joseph
--- NOTE | 2021-02-22 12:22 | DI.CT.S_ITS ---
PROCEDURE: CT HEAD/BRAIN WO CON INDICATIONS: confusion, problems swallowing TECHNIQUE: Noncontrast 4.5 mm thick angled axial sections acquired from the foramen magnum to the vertex, with coronal and sagittal reformats. For radiation dose reduction, the following was used: automated exposure control, adjustment of mA and/or kV according to patient size. COMPARISON: August 07, 2020. FINDINGS: Image quality: Excellent. CSF spaces: Basal cisterns are patent. No extra-axial fluid collections. Ventricles are normal in size and shape. Brain: Persistent right parietal hypoattenuating area, which may reflect encephalomalacia/gliosis. No midline shift. No intracranial masses or hemorrhage. Blackwood-white matter interface is normal. Skull and face: Calvarium and visualized facial bones are intact, without suspicious lesions. Sinuses: Mucosal thickening in the left chamber of the sphenoid sinus. The remaining sinuses and mastoids are clear. IMPRESSION: No acute intracranial abnormality. Dictated by: Carlton Dumont M.D. on 02/22/2021 at 12:36 Approved by: Carlton Dumont M.D. on 02/22/2021 at 12:39
[2021-02-22 12:56] LABS: Add Manual Diff / Slide Review NO; Basophils Absolute Auto 0 /uL (0-100); Basophils Percent Auto 0.6 % (0-2); Eosinophils Absolute Auto 100 /uL (0-450); Hematocrit 35.3 % (36-46); Hemoglobin 11.4 g/dL (12.0-16.0); Lymphocytes Absolute Auto 1100 /uL (1100-4500); Lymphocytes Percent Auto 14.8 % (25-40); Mean Corpuscular HGB Conc 32.3 % (30-36); Mean Corpuscular Hemoglobin 29.8 PG (26-34); Mean Corpuscular Volume 92.3 fL (80-100); Monocytes Absolute Auto 700 /uL (0-900); Monocytes Percent Auto 9.5 % (3-14); Neutrophils Absolute Auto 5500 /uL (1500-7000); Neutrophils Percent Auto 74.1 % (50-75); Platelet Count 305 X10^3/uL (150-400); Red Blood Cell Count 3.82 X10^6/uL (4.0-5.2); Red Cell Distribution Width 14.8 % (11.6-14.8); White Blood Cell Count 7.5 X10^3/uL (4.5-11.0)
[2021-02-22 13:07] LABS: BUN Creatinine Ratio 21.5 (6-22); Blood Urea Nitrogen 20 mg/dL (7-17); Calcium 9.2 mg/dL (8.4-10.2); Carbon Dioxide 30 mmol/L (22-32); Chloride 103 mmol/L (98-107); Estimated Glomerular Filt Rate 58.8 mL/min (>60); Glucose 99 mg/dL (80-110); HEMOLYSIS < 15 (0-50); Potassium 4.1 mmol/L (3.4-5.1); Sodium 141 mmol/L (137-145)
--- NOTE | 2021-02-22 13:31 | PC.NURSE ---
Pt passed thickened (pudding) swallow eval. Dr Greenwood made aware. order for carbidopa-levodopa to be given in pudding.
--- NOTE | 2021-02-22 14:13 | PC.NURSE ---
Previously during swallow exam, pt was able to close mouth around spoon and swallowing was successful however slow. Upon attempting to administer carbidopa-levodopa crushed in pudding SPO2 started to decrease to 89% and pt appeared to be having a spasm in her jaw causing her mouth to remain open, having stridorous snoring RR, and accessory neck muscle use and pt squeezed RN hand when asked if she was having trouble closing her mouth. Mouth gently suctioned, airway appeared patent, NRB applied at 15L and Dr Greenwood made aware and at bedside. RT called for eval and valium 1mg given IVP for appearing spasm. RT setting up heated high flow for pressure support. within minutes of administering valium, pt was able to close mouth and appears more comfortable. PO meds held at this time. Heated high flow at 60L 30% FiO2 remains in place and pt tolerating well. Call made to Dr Joseph for admission.
[2021-02-22] MEDS: diazePAM 10 MG/2 ML SYRINGE 2 MG IV (14:25)
[2021-02-22] MEDS: SODIUM CHLORIDE 0.9% 1,000 ML 100 ML IV ×2 (14:30→20:30)
[2021-02-22 15:47] LABS: COVID19 - ADMIT (NP swab/PCR) Negative (Negative)
--- NOTE | 2021-02-22 16:36 | PC.NURSE ---
Patient had choking episode suction used to clear secretions in mouth. Swabbed mouth, clearing residual blue pill residue. Patient tolerated fairly
--- NOTE | 2021-02-22 16:46 | PC.NURSE ---
Allyssa from [facility] has Son in law at facility to release home medications for use during hospital stay.
[2021-02-22] MEDS: LABETALOL 20 MG/4 ML SYRINGE 10 MG IV (17:00)
--- NOTE | 2021-02-22 17:38 | PC.NURSE ---
Luis M Yu [phone] (daughters significant other)
--- NOTE | 2021-02-22 17:57 | PC.NURSE ---
Patient suctioned prior to transport. Clear liquid present in mouth. Tolerated well. Patient able to open eyes on command, squeezes hand expressing communication of transfer.
[2021-02-22 20:21] LABS: Lactate (Lactic Acid) 0.5 mmol/L (0.7-2.1)
[2021-02-22 20:31] LABS: NT-proBNP (BNP-Adult 18+) 328 pg/mL (<450)
[2021-02-22 20:39] LABS: Procalcitonin 0.05 ng/mL (<0.5)
[2021-02-22] MEDS: LORazepam 2 MG/ML INJ 0.5 MG IV ×2 (20:40→20:55)
--- NOTE | 2021-02-22 21:05 | P.TELICUCN_ITS ---
History of Present Illness Consult details Date Patient Seen: 02/22/21 Chief complaint: muscle rigidity :: This patient was seen via real time interactive two-way audiovisual telecommunication. [facility] Medical History CHF (congestive heart failure) CKD (chronic kidney disease) stage 3, GFR 30-59 ml/min GERD (gastroesophageal reflux disease) Hallucination History of frequent headaches Hx of cancer of uterus Hypertension Osteoarthritis Parkinsons disease Spondylolysis of cervical region Surgical History (Updated 03/16/20 @ 23:57 by TESFAYE Lee) H/O: hysterectomy Hx of tooth extraction Hx of total knee replacement Family History (Updated 03/16/20 @ 23:02 by TESFAYE Lee) Mother Lung cancer Father Myocardial infarction Social History household members: none Smoking Status: Former smoker alcohol intake: never Current Medications Current Medications Medications: Home Medications acetaminophen 500 mg tablet 500 mg PO Q6H PRN 03/16/20 [History Confirmed 02/22/21] baclofen 10 mg tablet 10 mg PO TID 03/16/20 [History Confirmed 02/22/21] bupropion HCl 100 mg tablet 100 mg PO BID 03/16/20 [History Confirmed 02/22/21] carbidopa 10 mg-levodopa 100 mg tablet 1 tab PO Q8HR PRN 03/16/20 [History Confirmed 02/22/21] carbidopa 25 mg-levodopa 250 mg tablet 1 tab PO Q4H 03/16/20 [History Confirmed 02/22/21] carbidopa ER 50 mg-levodopa 200 mg tablet,extended release 2 tab PO QPM 03/16/20 [History Confirmed 02/22/21] citalopram 20 mg tablet 20 mg PO DAILY 03/16/20 [History Confirmed 02/22/21] furosemide 20 mg tablet 20 mg PO DAILY 03/16/20 [History Confirmed 02/22/21] gabapentin 300 mg capsule 300 mg PO TID 03/16/20 [History Confirmed 02/22/21] levodopa 42 mg capsule with inhalation device 84 mg INHALATION 5XD PRN 03/16/20 [History Confirmed 02/22/21] loratadine 10 mg capsule 10 mg PO DAILY PRN 03/16/20 [History Confirmed 02/22/21] naproxen sodium 220 mg capsule (Aleve) 220 mg PO Q8H PRN 03/16/20 [History Confirmed 02/22/21] rotigotine 4 mg/24 hour transdermal 24 hour patch 2 mg TRANSDERMAL DAILY 03/16/20 [History Confirmed 02/22/21] trimethobenzamide 300 mg capsule 300 mg PO Q8HR PRN 03/16/20 [History Confirmed 02/22/21] aspirin 81 mg tablet,delayed release 81 mg PO DAILY #30 tab 03/18/20 [Rx Confirmed 02/22/21] atorvastatin 20 mg tablet (Lipitor) 20 mg PO BEDTIME #30 tab 03/18/20 [Rx Con firmed 02/22/21] tramadol 50 mg tablet 50 mg PO DAILY PRN 02/22/21 [History Confirmed 02/22/21] Review of Systems Musculoskeletal Comments: severe neck muscle spasm Exam Vital Signs (past 8 hours): - 02/22/21 13:30 02/22/21 14:00 02/22/21 14:01 Temperature Pulse Rate 75 63 65 Respiratory Rate 19 23 23 Blood Pressure 194/90 H 185/83 H Pulse Oximetry 96 91 92 02/22/21 14:30 02/22/21 14:33 02/22/21 15:00 Temperature Pulse Rate 78 80 70 Respiratory Rate 12 20 9 L Blood Pressure 189/99 H 166/77 H Pulse Oximetry 99 98 99 02/22/21 15:30 02/22/21 16:00 02/22/21 16:05 Temperature Pulse Rate 76 72 Respiratory Rate 12 14 12 Blood Pressure 206/94 H 201/102 H Pulse Oximetry 99 100 99 02/22/21 16:28 02/22/21 16:47 02/22/21 17:00 Temperature Pulse Rate 74 71 Respiratory Rate 13 Blood Pressure 188/89 H 202/97 H Pulse Oximetry 98 98 02/22/21 18:00 02/22/21 20:20 02/22/21 20:41 Temperature 98.3 F 98.2 F Pulse Rate 80 84 77 Respiratory Rate 22 24 Blood Pressure 154/97 H 175/88 H Pulse Oximetry 99 98 85 L 02/22/21 20:49 Temperature Pulse Rate 87 Respiratory Rate 17 Blood Pressure 215/90 H Pulse Oximetry 99 Oxygen Delivery Method High Flow Nasal Cannula Oxygen Flow Rate 15 Narrative Exam Narrative: afebrile, hypertensive, aler awake, opens eyes to comman Neck Other: severe spasticity and tighness of b/l SCM Objective Imaging CT scan - head: My impression: -ve for acute process Chest x-ray: My impression: -ve for acute process Labs Result Diagrams: 02/22/21 12:48 02/22/21 12:48 Labs: Laboratory Results - last 24 hr 02/22/21 02/22/21 02/22/21 12:48 12:48 14:47 WBC 7.5 RBC 3.82 L Hgb 11.4 L Hct 35.3 L MCV 92.3 MCH 29.8 MCHC 32.3 RDW 14.8 Plt Count 305 Neut % (Auto) 74.1 Lymph % (Auto) 14.8 L [place] % (Auto) 9.5 Eos % (Auto) 1.0 L Baso % (Auto) 0.6 Neut # (Auto) 5500 Lymph # (Auto) 1100 [place] # (Auto) 700 Eos # (Auto) 100 Baso # (Auto) 0 Sodium 141 Potassium 4.1 Chloride 103 Carbon Dioxide 30 BUN 20 H Creatinine 0.93 Estimated GFR 58.8 L BUN/Creatinine Ratio 21.5 Glucose 99 Lactate Calcium 9.2 NT-Pro-B Natriuret Pep Procalcitonin SARS-CoV-2 (PCR) Negative 02/22/21 02/22/21 18:55 18:55 WBC RBC Hgb Hct MCV MCH MCHC RDW Plt Count Neut % (Auto) Lymph % (Auto) [place] % (Auto) Eos % (Auto) Baso % (Auto) Neut # (Auto) Lymph # (Auto) [place] # (Auto) Eos # (Auto) Baso # (Auto) Sodium Potassium Chloride Carbon Dioxide BUN Creatinine Estimated GFR BUN/Creatinine Ratio Glucose Lactate 0.5 L Calcium NT-Pro-B Natriuret Pep 328 Procalcitonin 0.05 SARS-CoV-2 (PCR) Assessment & Plan Assessment and plan (1) Parkinsons disease: Status: Acute (2) Dysphagia: Status: Acute (3) Muscle spasticity: Status: Acute Assessment & Plan narrative: 75 year old female with severe neck spasticity 2/2 to baclofen withdrawal vs sinemet withdrawal vs other possible aspiration pneumonitis unlikely pneumonia pt seen and examined with nurse/hospitalist at beside chart/labs/imaging reviewed afebirle, hyeptensive, sats 100s with highflow suggest -ativan prn for severe spasm avoid severe respiratory depression -can try precedex avoid bradycardia/hypotension -currently unable to place NGT due to resistance, however if able would start home meds, mainly sinemet/bacflofen -IV baclfoen if available, intrathecal if necessary or feasible -suggest urgent neuro eval -seizure unlikely as pt was able to follow commands -check ck -can hold off on abx for now, does not appear to have an active infectious process -pt has post form stating DNR/DNI Time Spent With Patient Critical Care time: I spent a total of [] minutes of critical care time on this patient's care today; this time is exclusive of procedural time.
[2021-02-22 21:29] LABS: Creatine Kinase 61 U/L (30-135)
[2021-02-22] MEDS: DEXMEDETOMIDINE HCL 400 MCG in SODIUM CHLORIDE 0.9% 100 ML IV (23:00)
--- NOTE | 2021-02-22 23:08 | PM.HP.1 ---
History of Present Illness History of Present Illness Date Patient Seen: 02/22/21 Time Patient Seen: 19:30 Chief complaint: muscle rigidity Narrative: Ms. Harris is a 75W with PMH Parkinsons disease, CHF, CKD stage 2, HTN who presents with confusion. She lives at a facility. Per staff she was sent because she was concerned she was having a stroke. The patient initially stated she noticed she was trying to write something yesterday and getting the letters mixed up. She was also apparently difficult to understand for others near her. She was having difficulty swallowing earlier today. She was brought in to the hospital. She was found to have old pills in her mouth. In the ED, workup was done she was noted to be afebrile, high blood pressure. She did get a trial of swallowing and had a choking episode during which her oxygen saturations dropped to the 80s. She was placed on high flow oxygen. In the ED she was noted to have an episode of spasm of her neck at that same time. She was following commands. There was a question if she had stridor. She was given valium which helped her symptoms. She was admitted. When seen on the floor she was noted to be in distress, jaw spasming, and neck spasming, she had hypertonic muscle and was hyperreflexic. She had no fevers. She was mainting her oyxgen saturation. She was transferred to the ICU. She was given ativan which improved her spasms. NG tube was attempted but unsuccessful. Labs notable for WBC 7.5, Hgb 11.4, creat 0.93. COVID negative. CT head showed no acute process. Chest xray showed no acute process. Her case with discussed with tele-automotive exhaust emissions technician physician, and her neurologist was also called. Patient History Medical History CHF (congestive heart failure) CKD (chronic kidney disease) stage 3, GFR 30-59 ml/min GERD (gastroesophageal reflux disease) Hallucination History of frequent headaches Hx of cancer of uterus Hypertension Osteoarthritis Parkinsons disease Spondylolysis of cervical region Surgical History H/O: hysterectomy Hx of tooth extraction Hx of total knee replacement Family & Social History Family History Mother Lung cancer Father Myocardial infarction Social History: household members none Prior Living Arrangements Skilled Nurse Facility Safety & Behavioral: Feels Safe in Current Yes Environment Tobacco & Substance use: Smoking Status Former smoker alcohol intake never Substance Use Type does not use Meds Home Medications and Allergies Home Medications Medication Instructions Recorded Confirmed Type acetaminophen 500 mg tablet 500 mg PO Q6H PRN 03/16/20 02/22/21 History baclofen 10 mg tablet 10 mg PO TID 03/16/20 02/22/21 History bupropion HCl 100 mg tablet 100 mg PO BID 03/16/20 02/22/21 History carbidopa 10 mg-levodopa 100 mg 1 tab PO Q8HR PRN 03/16/20 02/22/21 History tablet carbidopa 25 mg-levodopa 250 mg 1 tab PO Q4H 03/16/20 02/22/21 History tablet carbidopa ER 50 mg-levodopa 200 mg 2 tab PO QPM 03/16/20 02/22/21 History tablet,extended release citalopram 20 mg tablet 20 mg PO DAILY 03/16/20 02/22/21 History furosemide 20 mg tablet 20 mg PO DAILY 03/16/20 02/22/21 History gabapentin 300 mg capsule 300 mg PO TID 03/16/20 02/22/21 History levodopa 42 mg capsule with 84 mg INHALATION 5XD PRN 03/16/20 02/22/21 History inhalation device loratadine 10 mg capsule 10 mg PO DAILY PRN 03/16/20 02/22/21 History naproxen sodium 220 mg capsule 220 mg PO Q8H PRN 03/16/20 02/22/21 History (Aleve) rotigotine 4 mg/24 hour 2 mg TRANSDERMAL DAILY 03/16/20 02/22/21 History transdermal 24 hour patch trimethobenzamide 300 mg capsule 300 mg PO Q8HR PRN 03/16/20 02/22/21 History aspirin 81 mg tablet,delayed 81 mg PO DAILY #30 tab 03/18/20 02/22/21 Rx release atorvastatin 20 mg tablet (Lipitor) 20 mg PO BEDTIME #30 tab 03/18/20 02/22/21 Rx tramadol 50 mg tablet 50 mg PO DAILY PRN 02/22/21 02/22/21 History Allergies Allergy/AdvReac Type Severity Reaction Status Date / Time oxycodone [From Percocet] Allergy Verified 02/22/21 12:13 Review of Systems Review of Systems Narrative: Patient in distress from spasticity, unable to speak to give review of systems Exam Vital Signs (past 8 hours): - 02/22/21 15:30 02/22/21 16:00 02/22/21 16:05 Temperature Pulse Rate 76 72 Respiratory Rate 12 14 12 Blood Pressure 206/94 H 201/102 H Pulse Oximetry 99 100 99 02/22/21 16:28 02/22/21 16:47 02/22/21 17:00 Temperature Pulse Rate 74 71 Respiratory Rate 13 Blood Pressure 188/89 H 202/97 H Pulse Oximetry 98 98 02/22/21 18:00 02/22/21 20:20 02/22/21 20:41 Temperature 98.3 F 98.2 F Pulse Rate 80 84 77 Respiratory Rate 22 24 Blood Pressure 154/97 H 175/88 H Pulse Oximetry 99 98 85 L 02/22/21 20:49 02/22/21 21:00 02/22/21 21:01 Temperature Pulse Rate 87 85 87 Respiratory Rate 17 9 L 10 L Blood Pressure 215/90 H 176/88 H Pulse Oximetry 99 100 100 02/22/21 21:15 02/22/21 21:30 02/22/21 21:45 Temperature Pulse Rate 81 72 72 Respiratory Rate 11 L 11 L 9 L Blood Pressure 170/81 H 165/73 H 146/69 H Pulse Oximetry 99 99 98 02/22/21 22:00 02/22/21 22:15 02/22/21 22:30 Temperature Pulse Rate 72 72 82 Respiratory Rate 11 L 12 14 Blood Pressure 167/79 H 201/87 H 198/90 H Pulse Oximetry 99 99 98 02/22/21 22:45 02/22/21 23:00 Temperature Pulse Rate 83 79 Respiratory Rate 14 11 L Blood Pressure 198/88 H 201/89 H Pulse Oximetry 98 98 Oxygen Delivery Method High Flow Nasal Cannula Oxygen Flow Rate 15 Narrative Exam Narrative: GEN: moderate distress, hyperspasticity HEENT: PERRL, moist mucous membranes NECK: trachea midline, no JVD PULM: coarse breath sounds bilaterally CV: tachycardic, no murmurs ABD: soft, nontender, nondistended, no organomegaly EXT: warm and well perfused with no edema NEURO: awake, opens eyes to voice, tracks voice, hyperspastic facial muscles and neck muscle, hyperreflexic response to minimal stimuli in extremities, unable to follow commands Objective Labs Result Diagrams: 02/22/21 12:48 02/22/21 12:48 Labs: Laboratory Results - last 24 hr 02/22/21 02/22/21 02/22/21 12:48 12:48 14:47 WBC 7.5 RBC 3.82 L Hgb 11.4 L Hct 35.3 L MCV 92.3 MCH 29.8 MCHC 32.3 RDW 14.8 Plt Count 305 Neut % (Auto) 74.1 Lymph % (Auto) 14.8 L [place] % (Auto) 9.5 Eos % (Auto) 1.0 L Baso % (Auto) 0.6 Neut # (Auto) 5500 Lymph # (Auto) 1100 [place] # (Auto) 700 Eos # (Auto) 100 Baso # (Auto) 0 Sodium 141 Potassium 4.1 Chloride 103 Carbon Dioxide 30 BUN 20 H Creatinine 0.93 Estimated GFR 58.8 L BUN/Creatinine Ratio 21.5 Glucose 99 Lactate Calcium 9.2 Total Creatine Kinase NT-Pro-B Natriuret Pep Procalcitonin SARS-CoV-2 (PCR) Negative 02/22/21 02/22/21 02/22/21 18:55 18:55 18:55 WBC RBC Hgb Hct MCV MCH MCHC RDW Plt Count Neut % (Auto) Lymph % (Auto) [place] % (Auto) Eos % (Auto) Baso % (Auto) Neut # (Auto) Lymph # (Auto) [place] # (Auto) Eos # (Auto) Baso # (Auto) Sodium Potassium Chloride Carbon Dioxide BUN Creatinine Estimated GFR BUN/Creatinine Ratio Glucose Lactate 0.5 L Calcium Total Creatine Kinase 61 NT-Pro-B Natriuret Pep 328 Procalcitonin 0.05 SARS-CoV-2 (PCR) Assessment & Plan Assessment & Plan narrative: Ms. Harris is a 75W with [facility] parkison's presenting with dysphagia, muscle spasticity, aspiration. 1. Acute muscle spasticity -etiology sinemet withdrawa vs baclofen withdrawal vs other, less likely seizure -discussed with teleintensivist and neurologist -currently unable to safely swallow PO medications, NG tube attempted but unsuccessful, will need to consider PEG tube, attempted to call son and daughter (Shai and Albertina) multiple times and left message but was unable to speak with family -symptoms improved with IV benzos, will need to be careful with benzos as patient is DNR/DNI -ordered for precedex as well -no IV baclofen available, and patient's transdermal patch, and inhaled levodopa not in formulary, will attempt to have patient's meds delivered here 2. Acute parkinson's disease -as above, currently unable to safely take oral medications, an inhaled and transdermal meds not on formulary 3. Acute dysphagia -swallow evaluation, if patient more relaxed reattempt NG tube, but will need discussion about if PEG within goals of care 4. Acute metabolic encephalopathy -likely secondary to IV ativan, and contribution for parkinsons as well -no evidence of infection currently 5. Aspiration pneumonitis with acute hypoxemic respiratory failure -no fever, leukocytosis currently, no infiltrated on xray -avoid antibiotics for now 6. CHF, EF unknown -not in exacerbation currently -careful with IV fluids 7. History of TIA -continue aspirin, statin when tolerating POs 8. CKD stage 2 -creatinine appears near baseline, 0.93 -monitor 9. HTN -very hypertensive during epsidoes of distress -attempt to control spasticity CODE: DNR/DNI, has signed POLST form from facility Proxy: Albertina Harris, daughter, listed in chart DVT ppx: [id number] I have utilized all available immediate resources to obtain, update, or review the patient's current medications. Time Spent With Patient Critical Care time: I spent a total of [] minutes of critical care time on this patient's care today; this time is exclusive of procedural time. Quality MIPS - Admit I confirm the patient?s Advance Care Plan is present, Code status is documented, Surrogate decision maker is in patient?s record [If Yes, STOP here]: Yes
[2021-02-23] VITALS (26 sets, daily range): BP systolic 123–247; BP diastolic 60–111; PULSE 58–90; RESP 11–25; TEMP 36.7–36.9; O2SAT 88–99
[2021-02-23] MEDS: LORazepam 2 MG/ML INJ 0.5 MG IV ×5 (02:25→23:48)
[2021-02-23] MEDS: SODIUM CHLORIDE 0.9% 1,000 ML 100 ML IV ×2 (03:50→16:46)
--- NOTE | 2021-02-23 04:36 | PC.NURSE ---
Patient presents with very rigid neck and spasticity. Attempted placement of NG x 2 with no success. Very tight throat. Unable to administer Baclofen or Levadopa. Titrating Ativan pushes and Precedex gtt to keep patient relaxed. Unable to contact family re: possible placement of gastric tube as alternative route for PO meds.
[2021-02-23 05:42] LABS: BUN Creatinine Ratio 22.5 (6-22); Blood Urea Nitrogen 16 mg/dL (7-17); Calcium 8.7 mg/dL (8.4-10.2); Carbon Dioxide 28 mmol/L (22-32); Chloride 106 mmol/L (98-107); Estimated Glomerular Filt Rate > 60.0 mL/min (>60); Glucose 82 mg/dL (80-110); HEMOLYSIS < 15 (0-50); Sodium 141 mmol/L (137-145)
[2021-02-23 05:49] LABS: Add Manual Diff / Slide Review NO; Basophils Absolute Auto 0 /uL (0-100); Basophils Percent Auto 0.3 % (0-2); Eosinophils Absolute Auto 0 /uL (0-450); Eosinophils Percent Auto 0.3 % (2-4); Hemoglobin 9.9 g/dL (12.0-16.0); Lymphocytes Absolute Auto 1100 /uL (1100-4500); Lymphocytes Percent Auto 14.7 % (25-40); Mean Corpuscular Hemoglobin 29.7 PG (26-34); Monocytes Absolute Auto 700 /uL (0-900); Monocytes Percent Auto 8.4 % (3-14); Neutrophils Absolute Auto 5900 /uL (1500-7000); Neutrophils Percent Auto 76.3 % (50-75); Platelet Count 252 X10^3/uL (150-400); Red Blood Cell Count 3.33 X10^6/uL (4.0-5.2); Red Cell Distribution Width 14.6 % (11.6-14.8); White Blood Cell Count 7.8 X10^3/uL (4.5-11.0)
--- NOTE | 2021-02-23 08:43 | DI.RAD.S_ITS ---
PROCEDURE: XR CHEST 1V INDICATIONS: confirm NGT placement TECHNIQUE: One view of the chest was acquired. COMPARISON: [facility], CR, XR CHEST 1 VIEW, 08/07/2020, 5:39. [facility], CR, XR CHEST 1V, 07/07/2020, 12:59. [facility], CR, XR CHEST 1V, 02/22/2021, 19:45. FINDINGS: Surgical changes and devices: A gastric tube is seen, with the tip overlying the fundus of the stomach. Cholecystectomy clips are seen. Lungs and pleura: An incomplete inspiratory result is noted, causing a crowded appearance to the lung markings. No focal infiltrates are seen. No pneumothorax or significant pleural effusions are seen. Mediastinum: The cardiac contours are within normal limits. The aorta demonstrates calcification and tortuosity. Bones and chest wall: Age-appropriate bony degenerative changes are seen. No suspicious bony lesions. Overlying soft tissues appear unremarkable. IMPRESSION: The tip of the gastric tube can be seen overlying the fundus of the stomach. Dictated by: Federico Wilcox M.D. on 02/23/2021 at 8:12 Approved by: Federico Wilcox M.D. on 02/23/2021 at 8:13
--- NOTE | 2021-02-23 08:46 | PC.NURSE ---
Addendum entered by Shin Lucas R.N. 02/23/21 15:27: Post tramadol administration, pt was noted to be resting comfortably with eyes closed. ~1440 pt awoke, sat up to edge of bed, and was panicked that bad guys were chasing her. Provided reorientation. Pt states she may have been having a bad dream. Emotional support provided. Pt fell back to sleep before this RN left bedside. Will monitor. Addendum entered by Shin Lucas R.N. 02/23/21 13:39: Pt is awake. She is able to state her name, location, day/date, situation. She is somewhat difficult to understand because her speech is quiet and she does not open her mouth to enunciate. She does report moderate to severe pain, generalized and tells me she normally takes tramadol. Called to Dr. Joseph and reported assessment findings, pt c/o pain. Orders received. Addendum entered by Shin Lucas R.N. 02/23/21 11:46: Orders received for CT neck. Clarified with Dr. Joseph who states pt may go to CT unmonitored. Placed pt on 3L NC per RT rec. Pt's rigidity and spasticity has shown some improvement. Pt is able to close her mouth now and follow simple directions. Pt is moaning and appears painful with FLACC 7. Reviewed with Dr. Joseph who states that administration of parkinsons meds would be the most helpful with pain relief at this time. Attempted to reposition and place warm blanket to neck. Administered PRN parkinsons med per order. Original Note: Placed 14FR NGT to R Nare x1 attempt. Gastric contents noted in tubing and auscultated air over stomach. Order for XR entered to confirm placement.
[2021-02-23] MEDS: METOPROLOL TARTRATE 5 MG/5 ML INJ IV (09:13)
[2021-02-23] MEDS: buPROPion 100 MG TABLET PO ×2 (09:23→20:34)
[2021-02-23] MEDS: CITALOPRAM 10 MG TABLET 20 MG PO (09:24)
[2021-02-23] MEDS: CARBIDOPA LEVODOPA 1 EACH PO ×5 (09:24→23:49)
[2021-02-23] MEDS: ENOXAPARIN 40 MG/0.4 ML SYRINGE SUBCUT (09:25)
[2021-02-23] MEDS: ROTIGOTINE 2 MG/24 HR 2 EACH TOP (09:25)
--- NOTE | 2021-02-23 09:25 | PM.PN.EICU ---
Subjective Subjective :: This patient was seen via real time interactive two-way audiovisual telecommunication. Remains encephalopathic overnight with ongoing stridor. NGT placed overnight and restarted back on carbidopa-levodopa. On HFNC 40/30%. Current Medications Current Medications Medications: Home Medications acetaminophen 500 mg tablet 500 mg PO Q6H PRN 03/16/20 [History Confirmed 02/22/21] baclofen 10 mg tablet 10 mg PO TID 03/16/20 [History Confirmed 02/22/21] bupropion HCl 100 mg tablet 100 mg PO BID 03/16/20 [History Confirmed 02/22/21] carbidopa 10 mg-levodopa 100 mg tablet 1 tab PO Q8HR PRN 03/16/20 [History Confirmed 02/22/21] carbidopa 25 mg-levodopa 250 mg tablet 1 tab PO Q4H 03/16/20 [History Confirmed 02/22/21] carbidopa ER 50 mg-levodopa 200 mg tablet,extended release 2 tab PO QPM 03/16/20 [History Confirmed 02/22/21] citalopram 20 mg tablet 20 mg PO DAILY 03/16/20 [History Confirmed 02/22/21] furosemide 20 mg tablet 20 mg PO DAILY 03/16/20 [History Confirmed 02/22/21] gabapentin 300 mg capsule 300 mg PO TID 03/16/20 [History Confirmed 02/22/21] levodopa 42 mg capsule with inhalation device 84 mg INHALATION 5XD PRN 03/16/20 [History Confirmed 02/22/21] loratadine 10 mg capsule 10 mg PO DAILY PRN 03/16/20 [History Confirmed 02/22/21] naproxen sodium 220 mg capsule (Aleve) 220 mg PO Q8H PRN 03/16/20 [History Confirmed 02/22/21] rotigotine 4 mg/24 hour transdermal 24 hour patch 2 mg TRANSDERMAL DAILY 03/16/20 [History Confirmed 02/22/21] trimethobenzamide 300 mg capsule 300 mg PO Q8HR PRN 03/16/20 [History Confirmed 02/22/21] aspirin 81 mg tablet,delayed release 81 mg PO DAILY #30 tab 03/18/20 [Rx Confirmed 02/22/21] atorvastatin 20 mg tablet (Lipitor) 20 mg PO BEDTIME #30 tab 03/18/20 [Rx Confirmed 02/22/21] tramadol 50 mg tablet 50 mg PO DAILY PRN 02/22/21 [History Confirmed 02/22/21] Visit Medications (administered) Generic Name Dose Route Start Last Admin Trade Name Emile PRN Reason Stop Dose Admin Baclofen 10 mg 02/22/21 21:00 02/22/21 21:17 Baclofen 10 Mg Tablet PO Not Given TID SAMANTHA Bupropion HCl 100 mg 02/22/21 21:00 02/22/21 21:17 Bupropion 100 Mg Tablet PO Not Given BID SAMANTHA Carbidopa/Levodopa 1 each 02/22/21 20:00 02/23/21 07:27 Carbidopa-Levodopa 25/250 Tablet PO Not Given Q4H SAMANTHA Sodium Chloride 1,000 mls @ 100 mls/hr 02/22/21 19:30 02/23/21 03:50 Normal Saline 0.9% IV 100 mls/hr CONT SAMANTHA Administration Lorazepam 0.5 mg 02/22/21 21:14 02/23/21 04:12 Lorazepam 2 Mg/Ml Inj IV 0.5 mg Q30MIN PRN Administration Parkinsonism Objective Ventilator Parameters: Ventilator Settings FiO2 30 Labs Result Diagrams: 02/23/21 04:55 02/23/21 04:55 Labs: Laboratory Results - last 24 hr 02/22/21 02/22/21 02/22/21 12:48 12:48 14:47 WBC 7.5 RBC 3.82 L Hgb 11.4 L Hct 35.3 L MCV 92.3 MCH 29.8 MCHC 32.3 RDW 14.8 Plt Count 305 Neut % (Auto) 74.1 Lymph % (Auto) 14.8 L [place] % (Auto) 9.5 Eos % (Auto) 1.0 L Baso % (Auto) 0.6 Neut # (Auto) 5500 Lymph # (Auto) 1100 [place] # (Auto) 700 Eos # (Auto) 100 Baso # (Auto) 0 Sodium 141 Potassium 4.1 Chloride 103 Carbon Dioxide 30 BUN 20 H Creatinine 0.93 Estimated GFR 58.8 L BUN/Creatinine Ratio 21.5 Glucose 99 Lactate Calcium 9.2 Total Creatine Kinase NT-Pro-B Natriuret Pep Procalcitonin Nasal Screen MRSA (PCR) SARS-CoV-2 (PCR) Negative 02/22/21 02/22/21 02/22/21 18:55 18:55 18:55 WBC RBC Hgb Hct MCV MCH MCHC RDW Plt Count Neut % (Auto) Lymph % (Auto) [place] % (Auto) Eos % (Auto) Baso % (Auto) Neut # (Auto) Lymph # (Auto) [place] # (Auto) Eos # (Auto) Baso # (Auto) Sodium Potassium Chloride Carbon Dioxide BUN Creatinine Estimated GFR BUN/Creatinine Ratio Glucose Lactate 0.5 L Calcium Total Creatine Kinase 61 NT-Pro-B Natriuret Pep 328 Procalcitonin 0.05 Nasal Screen MRSA (PCR) SARS-CoV-2 (PCR) 02/22/21 02/23/21 02/23/21 20:30 04:55 04:55 WBC 7.8 RBC 3.33 L Hgb 9.9 L Hct 31.0 L MCV 93.0 MCH 29.7 MCHC 32.0 RDW 14.6 Plt Count 252 Neut % (Auto) 76.3 H Lymph % (Auto) 14.7 L [place] % (Auto) 8.4 Eos % (Auto) 0.3 L Baso % (Auto) 0.3 Neut # (Auto) 5900 Lymph # (Auto) 1100 [place] # (Auto) 700 Eos # (Auto) 0 Baso # (Auto) 0 Sodium 141 Potassium 4.0 Chloride 106 Carbon Dioxide 28 BUN 16 Creatinine 0.71 Estimated GFR > 60.0 BUN/Creatinine Ratio 22.5 H Glucose 82 Lactate Calcium 8.7 Total Creatine Kinase NT-Pro-B Natriuret Pep Procalcitonin Nasal Screen MRSA (PCR) Negative for mrsa SARS-CoV-2 (PCR) Exam Vital Signs (past 8 hours): - 02/23/21 02:00 02/23/21 03:00 02/23/21 03:18 Temperature Pulse Rate 71 66 63 Respiratory Rate 12 13 13 Blood Pressure 170/79 H 182/77 H 182/77 H Pulse Oximetry 96 97 96 02/23/21 04:00 02/23/21 04:08 02/23/21 05:00 Temperature Pulse Rate 61 69 60 Respiratory Rate 12 12 12 Blood Pressure 129/60 129/60 142/63 H Pulse Oximetry 96 97 96 02/23/21 05:01 02/23/21 05:11 02/23/21 06:00 Temperature Pulse Rate 61 59 L 64 Respiratory Rate 12 13 13 Blood Pressure 142/63 H 142/63 H 169/73 H Pulse Oximetry 96 97 98 02/23/21 06:01 02/23/21 07:00 Temperature 98.0 F Pulse Rate 65 66 Respiratory Rate 13 14 Blood Pressure 172/80 H 164/72 H Pulse Oximetry 95 98 Fraction of Inspired Oxygen 30 Oxygen Delivery Method High Flow Nasal Cannula Oxygen Flow Rate 40 Narrative Exam Narrative: Hyperextend neck with presence of stridor via camera. On HFNC and NGT in place. Assessment & Plan Assessment & Plan narrative: NEURO: # Acute encephalopathy -- No change -- CT head negative for any acute abnormality -- Neurology following -- Cont frequent reorientation -- Early mobility # Neck spasm -- Unclear etiology -- Possible related to sinemet withdrawal vs baclofen withdrawal -- Minimum improvement with BZD -- Resume sinemet and baclofen -- Neurology following # Parkinson's disease -- Neurology following -- Resume sinemet RESP: # Acute hypoxemia respiratory failure -- Secondary to aspiration and atelectasis -- Although there is no evidence of dense consolidation this could be a delay in radiographic findings. Recommend starting unasyn for aspiration PNA coverage. -- Check respiratory culture -- Stridor maangement as below -- HOB elevation -- Goal SpO2 > 88% # Stridor -- Unclear etiology -- Possible related to neck muscle spasm vs upper airway obstruction -- Recommend CT neck to further evaluation -- Recommend trial of epinephrine racemic X 1 and reassess for response. If there is resolution of stridor then recommend continuing every 3-4 hour as needed for stridor -- Recommend starting trial of decadron 4 mg IV q6hr X 48 hours -- If there is evidence of upper airway obstruction then patient will need ENT consultation for further evaluation CVS: # Hypertension -- Recommend restarting home BP meds and titrate for goal of SBP < 140 ID: # Concern for aspiration PNA -- Likely chemical pneumonitis; however patient remains hypoxemia which raises concern for possible superimposed bacterial PNA -- Recommend starting unasyn -- Check resp cx -- Deescalate abx after 48 hours if cx are negative HEME: # Anemia -- No reported of overt bleed -- Daily CBC -- Goal Hb > 7 ENDO: -- Goal BS < 180 Recommend further goals of care discussion with patient's son. Case discussed with Dr. Joseph and medical staff physician at bedside. Time Spent With Patient Critical Care time: I spent a total of [] minutes of critical care time on this patient's care today; this time is exclusive of procedural time.
[2021-02-23] MEDS: BACLOFEN 10 MG TABLET PO ×3 (09:30→18:41)
--- NOTE | 2021-02-23 09:37 | CM.DANOTE ---
Addendum entered by ANGLE Vera 02/23/21 15:22: ADD: Pt still not able to participate in assessment and SW attempted to call pt's listed DPOA son Erasmo and left msg and also Dtr Albertina but did not leave msg. [facility] on hold due to pt's inability to participate at this time. BF Original Note: Patient is a 75 yo female who was admitted on 02/22/21 for Possible Stroke. Pt has M[employer] and [employer] for insurance and her PCP is Dr. Vale Lopez. EMR was reviewed. Per MD, pt with hx of Parkinsons, CHF and currently admitted for spasms of the neck and NPO as pt currently cannot swallow and NG finally able to be placed for meds at this time. Per RN, pt still not currently responsive or able to participate in bedside discussion. Copy of POLST in chart showing limited interventions. DNR/DNI. Pt last admitted in Mar 2020 last year for possible stroke and was able to d/c back to [facility] with dane Haq referral and Armida Eng provided transport. SW called [facility] RN and confirmed pt still a resident and receives assist with ADL's but typically ambulates with a walker with SBA as pt has hx of rigidity/frozen state where pt then requires full assist and sublingual meds but frozen state does not typically last very long after medication has been given under her tongue. [facility] will need to do bedside assessment closer to d/c if plan is to attempt for her to return to their facility. RN at [facility] though states that pt was in the process of getting assessment by a higher level of care NURSING HOME in [place] yesterday towards pt and family plan of moving pt to [place] to live near her son/DPOA Erasmo potentially by next week. Paul unsure if family will still want pt to move soon or return to their facility for a short while or go to SNF. [facility] not requesting clinicals be faxed yet but would like SW to check in each day as she gets closer to d/c. Plan: SW will attempt to contact pt's DPVIDA Zimmerman, who is in the process of coming to the hospital from [place], towards ongoing d/c planning. ANGLE Vera Discharge Planning/Care Management CM Discharge Assessment Start: 02/23/21 09:24 Freq: Status: Active Protocol: Document 02/23/21 09:34 BF (Rec: 02/23/21 09:37 BF [id number]) Discharge Planning Assessment Assigned [employer] ANGLE Darden/Assigned Designee Name Gray Zimmerman Contact Information lives in [place] Advance Directives? Yes: POLST Advance Directives on File Yes History Provided By Patient,Family Member,Medical Record Has Patient been admitted in last 30 No days? Comment Last admit Mar 2020 Prior Living Arrangements Assisted Living Comment [facility] Household Members none Type of transporation used prior to Relies on Others admit Independent with ADL's No: some assist with ADLs Is patient alert and oriented? Yes Needs Assistance With Meal Prep,Managing Medications ,Home Chores / Shopping Caregiver for Another No DME Already Rented / Owned Bath Bench,FWW / Walker Patient/Family Preference Care Home Facility Barriers to Discharge No Discharge Plan Care Home Facility Transportation Arrangement Pending d/c plan of family transport via SNF facility van Additional Comment Pending pt progress and needs Review Status In Process Please Provide Date Initial DC 02/23/21 Assessment Was Performed Next Review Type Continued Stay Review
--- NOTE | 2021-02-23 11:05 | SLP.IPNOTE ---
Per nursing, ST is discharged at this time. MD will put in new order when/if pt's condition improves.
[2021-02-23] MEDS: CARBIDOPA-LEVODOPA 10/100 TABLET 1 EACH PO ×2 (11:13→17:27)
[2021-02-23] MEDS: RACEPINEPHRINE 0.5 ML NEB INH (11:16)
--- NOTE | 2021-02-23 11:52 | DI.CT.S_ITS ---
PROCEDURE: CT SOFT TISSUE NECK W CON INDICATIONS: r/o epiglottis TECHNIQUE: After the administration of intravenous contrast, 3.0 mm axial sections acquired from the sella to the aortic arch. Additional oblique axial 3.0 mm sections acquired through the pharynx. 3 mm thick coronal and sagittal reformats were generated. For radiation dose reduction, the following was used: automated exposure control. COMPARISON: None. FINDINGS: Image quality: Excellent. Lymph nodes: No enlarged lymph nodes seen throughout the neck. Vessels: Visualized vasculature appears patent. Neck spaces: The oropharynx, nasopharynx, and pharynx demonstrate no mucosal lesions. The vocal cords, false vocal cords, pyriform sinuses, epiglottis, vallecula, and tongue base all appear normal. Extramucosal spaces appear unremarkable. Glands: The parotid and submandibular glands appear normal. Thyroid gland demonstrates low-attenuation focus in inferior and anterior lobe. Miscellaneous: Visualized brain and orbits appear normal. Lung apices appear clear. Superficial soft tissues appear normal. Nasogastric tube is present with distal tip within the mid esophagus. Bones: No suspicious bony lesions. Visualized sinuses and mastoids appear unremarkable. IMPRESSION: Airway is patent. No gross evidence of epiglottitis. If concern persists, direct visualization is recommended. Dictated by: Lluvia Olmos M.D. on 02/23/2021 at 12:18 Approved by: Lluvia Olmos M.D. on 02/23/2021 at 12:23
[2021-02-23] MEDS: AMPICILLIN/SULBACTAM 3 GM 3 GM in SODIUM CHLORIDE 0.9% 100 ML IV ×3 (12:16→23:49)
[2021-02-23] MEDS: DEXAMETHASONE 4 MG/ML VIAL IV ×3 (12:17→23:49)
--- NOTE | 2021-02-23 13:16 | DI.RAD.S_ITS ---
PROCEDURE: XR CHEST 1V INDICATIONS: Confirm correct placement of NGT TECHNIQUE: One view of the chest was acquired. COMPARISON: [facility], , XR CHEST 1V, 02/22/2021, 19:45. [facility], CR, XR CHEST 1V, 02/23/2021, 8:45. FINDINGS: Surgical changes and devices: The tip of the gastric tube can be seen overlying the fundus of the stomach. Cholecystectomy clips are seen. Lungs and pleura: Lungs are clear. No pleural effusions or pneumothorax. Mediastinum: Mediastinal contours appear normal. Heart size is normal. Bones and chest wall: No suspicious bony lesions. Overlying soft tissues appear unremarkable. Age-appropriate bony degenerative changes are seen. Mild dextroconvex scoliotic curvature is seen. IMPRESSION: The tip of the gastric tube is again seen overlying the fundus of the stomach. Dictated by: Federico Wilcox M.D. on 02/23/2021 at 12:43 Approved by: Federico Wilcox M.D. on 02/23/2021 at 12:44
[2021-02-23] MEDS: TRAMADOL 50 MG TABLET PO ×3 (13:51→23:49)
--- NOTE | 2021-02-23 13:54 | PM.PN.1 ---
Subjective Subjective Date Patient Seen: 02/23/21 Interval history: The patient is a 75 y/o with parkinson's disease admitted with encephalopathy and rigidity. She has been unable to swallow and likely aspirated last night. She sounded like she had stridor this morning and required high flow oxygen to maintain her saturations. A NG tube was placed and she has since recieved her parkingson's medication with some improvement. She was actually able to communicate that she was in pain. She was very hypertensive but responded nicely tolopressor Exam Vital Signs (past 8 hours): - 02/23/21 06:00 02/23/21 06:01 02/23/21 07:00 Temperature 98.0 F Pulse Rate 64 65 66 Respiratory Rate 13 13 14 Blood Pressure 169/73 H 172/80 H 164/72 H Pulse Oximetry 98 95 98 02/23/21 09:02 02/23/21 10:00 02/23/21 11:00 Temperature Pulse Rate 90 86 77 Respiratory Rate 25 H 21 15 Blood Pressure 247/111 H 168/79 H 158/76 H Pulse Oximetry 93 93 98 02/23/21 11:25 02/23/21 12:00 02/23/21 12:30 Temperature Pulse Rate 81 84 Respiratory Rate 24 25 H Blood Pressure 154/74 H Pulse Oximetry 98 96 88 L 02/23/21 12:45 Temperature Pulse Rate Respiratory Rate Blood Pressure Pulse Oximetry 96 Fraction of Inspired Oxygen 30 Oxygen Delivery Method Nasal Cannula Oxygen Flow Rate 2 Narrative Exam Narrative: Ill appearing female lying in bed Neck Other: rigid with protuding muscles, very stiff Resp Other: Lungs: decreased breath sounds but clear to ausculatation Cardio Other: RRR nl Sl S2 GI Other: abd: soft/ non tender non distended Back/Spine/Pelvis Other: Stiff all over Objective Labs Result Diagrams: 02/23/21 04:55 02/23/21 04:55 Labs: Laboratory Results - last 24 hr 02/22/21 02/22/21 02/22/21 14:47 18:55 18:55 WBC RBC Hgb Hct MCV MCH MCHC RDW Plt Count Neut % (Auto) Lymph % (Auto) [place] % (Auto) Eos % (Auto) Baso % (Auto) Neut # (Auto) Lymph # (Auto) [place] # (Auto) Eos # (Auto) Baso # (Auto) Sodium Potassium Chloride Carbon Dioxide BUN Creatinine Estimated GFR BUN/Creatinine Ratio Glucose Lactate 0.5 L Calcium Total Creatine Kinase NT-Pro-B Natriuret Pep 328 Procalcitonin 0.05 Nasal Screen MRSA (PCR) SARS-CoV-2 (PCR) Negative 02/22/21 02/22/21 02/23/21 18:55 20:30 04:55 WBC 7.8 RBC 3.33 L Hgb 9.9 L Hct 31.0 L MCV 93.0 MCH 29.7 MCHC 32.0 RDW 14.6 Plt Count 252 Neut % (Auto) 76.3 H Lymph % (Auto) 14.7 L [place] % (Auto) 8.4 Eos % (Auto) 0.3 L Baso % (Auto) 0.3 Neut # (Auto) 5900 Lymph # (Auto) 1100 [place] # (Auto) 700 Eos # (Auto) 0 Baso # (Auto) 0 Sodium Potassium Chloride Carbon Dioxide BUN Creatinine Estimated GFR BUN/Creatinine Ratio Glucose Lactate Calcium Total Creatine Kinase 61 NT-Pro-B Natriuret Pep Procalcitonin Nasal Screen MRSA (PCR) Negative for mrsa SARS-CoV-2 (PCR) 02/23/21 04:55 WBC RBC Hgb Hct MCV MCH MCHC RDW Plt Count Neut % (Auto) Lymph % (Auto) [place] % (Auto) Eos % (Auto) Baso % (Auto) Neut # (Auto) Lymph # (Auto) [place] # (Auto) Eos # (Auto) Baso # (Auto) Sodium 141 Potassium 4.0 Chloride 106 Carbon Dioxide 28 BUN 16 Creatinine 0.71 Estimated GFR > 60.0 BUN/Creatinine Ratio 22.5 H Glucose 82 Lactate Calcium 8.7 Total Creatine Kinase NT-Pro-B Natriuret Pep Procalcitonin Nasal Screen MRSA (PCR) SARS-CoV-2 (PCR) [facility] Medical History CHF (congestive heart failure) CKD (chronic kidney disease) stage 3, GFR 30-59 ml/min GERD (gastroesophageal reflux disease) Hallucination History of frequent headaches Hx of cancer of uterus Hypertension Osteoarthritis Parkinsons disease Spondylolysis of cervical region Surgical History H/O: hysterectomy Hx of tooth extraction Hx of total knee replacement Family History Mother Lung cancer Father Myocardial infarction Social History household members: none Smoking Status: Former smoker alcohol intake: never Assessment & Plan Assessment & Plan narrative: Ms. Harris is a 75W with [facility] parkison's presenting with dysphagia, muscle spasticity, aspiration. 1. Acute muscle spasticity -etiology sinemet withdrawa vs baclofen withdrawal vs other, less likely seizure -discussed with teleintensivist and neurologist -currently unable to safely swallow PO medications, NG tube attempted but unsuccessful, will need to consider PEG tube, attempted to call son and daughter (Shai and Albertina) multiple times and left message but was unable to speak with family -symptoms improved with IV benzos, will need to be careful with benzos as patient is DNR/DNI -ordered for precedex as well -no IV baclofen available, and patient's transdermal patch, and inhaled levodopa not in formulary, will attempt to have patient's meds delivered here - NGT placed today, patient now able to get Parkinson's medication with improvement in spasticity 2. Acute parkinson's disease -as above, currently unable to safely take oral medications, an inhaled and transdermal meds not on formulary -restarted medications via NGT 3. Acute dysphagia -swallow evaluation, if patient more relaxed reattempt NG tube, but will need discussion about if PEG within goals of care -Speech eval for swallow function -discussed with her son. She has had recurrent issues of spasticity which usually responds to restarting her medications -IF she needed a PEG to get her medications, he would support that as well. 4. 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 Aspiration pneumonitis with acute hypoxemic respiratory failure -no fever, leukocytosis currently, no infiltrated on xray -avoid antibiotics for now -discussed with the Tele ICU, given her stridor, hypoxia he recommended starting Unasyn -Unasyn started this am 6. CHF, EF unknown -not in exacerbation currently -careful with IV fluids -continue for now 7. History of TIA -continue aspirin, statin when tolerating POs -asa via NGT 8. CKD stage 2 -creatinine appears near baseline, 0.93 -monitor 9. HTN -very hypertensive during epsidoes of distress -attempt to control spasticity -prn lopressor as needed 10. Stridor -CT of neck reveals no epiglottis or airway obstruction -patient recieved racemic epi without improvement -started Decadron 4mg IV q6, as stridor improves can d/c tomorrow -no evidence of epiglottits CODE: DNR/DNI, has signed POLST form from facility Time Spent With Patient Critical Care time: I spent a total of [] minutes of critical care time on this patient's care today; this time is exclusive of procedural time.
[2021-02-23] MEDS: CARBIDOPA-LEVODOPA ER 50/200 TABLET 2 EACH PO (17:54)
--- NOTE | 2021-02-23 20:27 | PM.ICURNDS ---
- Date Patient Seen: 02/23/21 Time Patient Seen: 20:28 :: This patient was seen via real time interactive two-way audiovisual telecommunication. Note: patient seen/chart reviewed doing well afebrile, HD stable, mental status with some improvement much less neck spasticity noted -continue home meds -cont ativan prn -cont steroids -discussed with bedside nurse
--- NOTE | 2021-02-23 21:54 | PC.NURSE ---
Evening shift note: Pt has required a 1:1 all shift, with multiple attempts to remove NG tube, PIV (did remove left hand), extremely agitated at times, able to express I want to go home, I don't want this in my nose, medicated on 2 occasions with Ativan as ordered. Son came and sat at bedside with pt for half an hour. Bed low and locked, alarm on, call light within reach will continue to monitor.
[2021-02-24] VITALS: O2SAT 93
[2021-02-24] MEDS: LORazepam 2 MG/ML INJ 0.5 MG IV ×2 (01:46→03:29)
[2021-02-24] MEDS: CARBIDOPA-LEVODOPA 10/100 TABLET 1 EACH PO (01:46)
[2021-02-24] MEDS: CARBIDOPA LEVODOPA 1 EACH PO ×6 (03:30→23:57)
[2021-02-24 04:00] VITALS: O2SAT 95
[2021-02-24] MEDS: SODIUM CHLORIDE 0.9% 1,000 ML 100 ML IV ×2 (04:52→21:26)
[2021-02-24 05:11] LABS: Add Manual Diff / Slide Review NO; Basophils Absolute Auto 0 /uL (0-100); Basophils Percent Auto 0.1 % (0-2); Eosinophils Absolute Auto 0 /uL (0-450); Hematocrit 30.6 % (36-46); Hemoglobin 9.8 g/dL (12.0-16.0); Lymphocytes Absolute Auto 500 /uL (1100-4500); Lymphocytes Percent Auto 5.9 % (25-40); Mean Corpuscular HGB Conc 32.2 % (30-36); Mean Corpuscular Hemoglobin 29.7 PG (26-34); Mean Corpuscular Volume 92.3 fL (80-100); Monocytes Absolute Auto 100 /uL (0-900); Monocytes Percent Auto 1.6 % (3-14); Neutrophils Absolute Auto 7900 /uL (1500-7000); Neutrophils Percent Auto 92.4 % (50-75); Platelet Count 250 X10^3/uL (150-400); Red Blood Cell Count 3.31 X10^6/uL (4.0-5.2); Red Cell Distribution Width 14.4 % (11.6-14.8); White Blood Cell Count 8.6 X10^3/uL (4.5-11.0)
[2021-02-24 05:16] LABS: Blood Urea Nitrogen 18 mg/dL (7-17); Calcium 8.8 mg/dL (8.4-10.2); Carbon Dioxide 24 mmol/L (22-32); Chloride 103 mmol/L (98-107); Estimated Glomerular Filt Rate > 60.0 mL/min (>60); Glucose 99 mg/dL (80-110); HEMOLYSIS < 15 (0-50); Potassium 4.3 mmol/L (3.4-5.1); Sodium 137 mmol/L (137-145)
[2021-02-24] MEDS: AMPICILLIN/SULBACTAM 3 GM 3 GM in SODIUM CHLORIDE 0.9% 100 ML IV ×4 (05:48→23:53)
[2021-02-24] MEDS: DEXAMETHASONE 4 MG/ML VIAL IV (05:48)
--- NOTE | 2021-02-24 06:07 | PC.NURSE ---
Shift Note-Patient has been awake all night, confused, restless, constantly touching NGT and IV site, sometimes attempting to pull them out, GRAPHIC ARTIST able to sit with patient most of the time. IV Ativan given per prn with very little effect, Tramadol given when patient stated she had pain all over-was effective, PO meds given via NGT without difficulty. SpO2 >92% on RA when checked.
[2021-02-24] MEDS: ROTIGOTINE 2 MG/24 HR 2 EACH TOP (07:38)
[2021-02-24] MEDS: BACLOFEN 10 MG TABLET PO ×3 (07:40→21:27)
[2021-02-24] MEDS: CITALOPRAM 10 MG TABLET 20 MG PO (07:48)
[2021-02-24] MEDS: buPROPion 100 MG TABLET PO ×2 (07:48→21:27)
[2021-02-24] MEDS: ENOXAPARIN 40 MG/0.4 ML SYRINGE SUBCUT (07:49)
[2021-02-24] MEDS: TRAMADOL 50 MG TABLET PO ×2 (07:49→22:28)
[2021-02-24 08:00] VITALS: BP 167/80; PULSE 92; RESP 19; TEMP 36.7; O2SAT 96
--- NOTE | 2021-02-24 12:08 | DIET.PN1 ---
Dietary Progress Note Assessment: 75y F admitted for muscle rigidity secondary to trouble with Parkinsons medication management screened by RD for significant weight loss. Pt lives at [facility], has had trouble in past with medication management resulting in painful rigid state. Pt had been NPO this hospitalization secondary to unsafe swallow, unable to participate in swallow evaluation. RD and OFFSET PRINTER spoke, pt cleared for dysphagia mechanical soft diet c nectar liquids, however, OFFSET PRINTER very concerned pt won't be able to meet needs through PO nourishments as pt is exhibiting feeding habits common in late stage dementia where she is doing anterior nibble of foods needing consistent coaxing and cuing to continue eating. OFFSET PRINTER was able to help pt take meds, however, only with significant coaxing c resistance from pt. Pt has had 27% unintentional weight loss over the past year. Per pts DPOA, open to PEG placement as outpatient if needed for medication administration. Pt has been attempting to pull at IV lines and NG tube this hospitalization. Ht: 165.1 cm Wt: 62.414 kg (-27% in one year, severe) BMI: 22.8 MNA: Antonio Score: 13 Diet: 02/22/21 19:26 NPO Diet Diet Modifications: NPO Type: Strict Labs: RBC 3.31 X10^6/uL (4.0-5.2) L 02/24/21 04:45 Hgb 9.8 g/dL (12.0-16.0) L 02/24/21 04:45 Hct 30.6 % (36-46) L 02/24/21 04:45 Creatinine 0.72 mg/dL (0.52-1.04) 02/24/21 04:45 Lactate 0.5 mmol/L (0.7-2.1) L 02/22/21 18:55 NT-Pro-B Natriuret Pep 328 pg/mL (<450) 02/22/21 18:55 Nutrition Diagnosis: Severe Acute on Chronic Protein Calorie Malnutrition r/t difficulty eating aeb 27% unintentional weight loss in 1y (severe), pt c Parkinsons having trouble c medication management leading to rigid body state, pt with difficulty self-feeding at high risk for continued poor POs meeting <50% of needs. Interventions: 1. Recc uncomplicated meal tray with 1:1 cuing for nourishments with small, slow bites. 2. Recc ONS Ensure Enlive made pudding thick bid for potentially easier consumption to replete nutrition status. EER: 1800kcals (30kcal/kg per PCM), 70g PRO (1.2g/kg per PCM) Monitoring/Evaluations: POs, ONS tolerance Electronically Signed by: Jessica Leslie 02/24/21 12:08 Clinical Dietitian [address] [id number]
--- NOTE | 2021-02-24 12:12 | PM.PN.1 ---
Subjective Subjective Date Patient Seen: 02/24/21 Time Patient Seen: 12:13 Interval history: No complaints, denies chest pain shortness of breath currently. Was able to tolerated heavily modified diet. NG tube can be removed. Exam Vital Signs (past 8 hours): - 02/24/21 08:00 Temperature 98.1 F Pulse Rate 92 H Respiratory Rate 19 Blood Pressure 167/80 H Pulse Oximetry 96 Fraction of Inspired Oxygen 30 Oxygen Delivery Method Room Air Oxygen Flow Rate 0 Narrative Exam Narrative: ?GEN: No acute distress, chronically ill appearing. HEENT: PERRL, moist mucous membranes NECK: trachea midline, no JVD PULM: coarse breath sounds bilaterally CV: tachycardic, no murmurs ABD: soft, nontender, nondistended, no organomegaly EXT: warm and well perfused with no edema NEURO: awake, alert. slurred speech somewhat, but apparently at baseline. follows commands. Objective Labs Result Diagrams: 02/24/21 04:45 02/24/21 04:45 Labs: Laboratory Results - last 24 hr 02/24/21 02/24/21 04:45 04:45 WBC 8.6 RBC 3.31 L Hgb 9.8 L Hct 30.6 L MCV 92.3 MCH 29.7 MCHC 32.2 RDW 14.4 Plt Count 250 Neut % (Auto) 92.4 H Lymph % (Auto) 5.9 L [place] % (Auto) 1.6 L Eos % (Auto) 0.0 L Baso % (Auto) 0.1 Neut # (Auto) 7900 H Lymph # (Auto) 500 L [place] # (Auto) 100 Eos # (Auto) 0 Baso # (Auto) 0 Sodium 137 Potassium 4.3 Chloride 103 Carbon Dioxide 24 BUN 18 H Creatinine 0.72 Estimated GFR > 60.0 BUN/Creatinine Ratio 25.0 H Glucose 99 Calcium 8.8 PFSH Medical History CHF (congestive heart failure) CKD (chronic kidney disease) stage 3, GFR 30-59 ml/min GERD (gastroesophageal reflux disease) Hallucination History of frequent headaches Hx of cancer of uterus Hypertension Osteoarthritis Parkinsons disease Spondylolysis of cervical region Surgical History H/O: hysterectomy Hx of tooth extraction Hx of total knee replacement Family History Mother Lung cancer Father Myocardial infarction Social History household members: none Smoking Status: Former smoker alcohol intake: never Assessment & Plan Assessment & Plan narrative: Ms. Harris is a 75W with PMH parkison's presenting with dysphagia, muscle spasticity, aspiration. 1. Acute muscle spasticity -etiology sinemet withdrawalre -improvement after NG tube. Cleared by speech for heavily modified diet. Resume home medications today. 2. Acute parkinson's disease -as above, currently unable to safely take oral medications, an inhaled and transdermal meds not on formulary -restarted medications via NGT 3. Acute dysphagia -swallow evaluation, if patient more relaxed reattempt NG tube, but will need discussion about if PEG within goals of care -Speech eval for swallow function -discussed with her son. She has had recurrent issues of spasticity which usually responds to restarting her medications -IF she needed a PEG to get her medications, he would support that as well. 4. 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 Aspiration pneumonitis with acute hypoxemic respiratory failure, resolved -no fever, leukocytosis currently, no infiltrated on xray -avoid antibiotics for now -discussed with the Tele ICU, given her stridor, hypoxia he recommended starting Unasyn -Unasyn started this am 6. CHF, EF unknown -not in exacerbation currently -careful with IV fluids -continue for now 7. History of TIA -continue aspirin, statin 8. CKD stage 2 -creatinine appears near baseline, 0.93 -monitor 9. HTN -very hypertensive during epsidoes of distress, now somewhat improved. -attempt to control spasticity -prn lopressor as needed 10. Stridor -CT of neck reveals no epiglottis or airway obstruction -patient recieved racemic epi without improvement -started Decadron 4mg IV q6 initially, discontineud today. CODE: DNR/DNI, has signed POLST form from facility Dispo: if tolerating, can likely transfer back to facility tomorrow. Time Spent With Patient Critical Care time: I spent a total of [] minutes of critical care time on this patient's care today; this time is exclusive of procedural time.
--- NOTE | 2021-02-24 13:00 | PC.NURSE ---
Day Shift Note Patient in bed on AM assessment, agitated and anxious, attempting to pull out lines. Pt is oriented to self only. Requires frequent reminders and reorientation. Stated she was at [facility] when asked where she was. Appears to be intermittently hallucinating, reaching up into air. Fixated on NG tube but distractable this AM. Does follow commands except when agitated. Speech is clear but often becomes repetitive/nonsensical. Transferred to chair 2 person assist with FWW, sitting up in chair at this time with alarm in place. Pt forcibly pulled out NG tube while staff at bedside at about 1100. Speech therapy done and dysphagia mechanical/nectar thick liquids recommended. Pt took 1200 dose sinemet with pudding, only interested in a couple bites. Son, Erasmo, updated on the above.
[2021-02-24 15:00] VITALS: BP 189/86; PULSE 95; RESP 17; O2SAT 96
--- NOTE | 2021-02-24 16:13 | ST.IPCSEOM ---
Visit Care Team Role Provider Type Vale Lopez MD Primary Care Provider Physician Specialty: Internal Medicine Address: [address] [place] [address] Email: [email or web address] Cleopatra August MD Other Providers Physician Specialty: Medical Address: Phone: Fax: Email: Maria C Owens MD Other Providers Physician Specialty: Medical Address: Phone: Fax: Email: Regine Tejada MD Other Providers Physician Specialty: Medical Address: Phone: Fax: Email: Bryce Topete MD Other Providers Physician Specialty: Medical Address: Phone: Fax: Email: Laura Denny MD Other Providers Physician Specialty: Medical Address: Phone: Fax: Email: Teddy Albrecht MD Other Providers Physician Specialty: Medical Address: Phone: Fax: Email: Kenny Byrd MD Other Providers Physician Specialty: Medical Address: Phone: Fax: Email: Sharath Wallace MD Other Providers Physician Specialty: Medical Address: Phone: Fax: Email: Tito Tejada MD Other Providers Physician Specialty: Medical Address: Phone: Fax: Email: Paul Orellana MD Other Providers Physician Specialty: Medical Address: Phone: Fax: Email: Jamaal Mix MD Other Providers Physician Specialty: Medical Address: Phone: Fax: Email: Teddy Greenwood DO Emergency Provider Physician Referring Provider Specialty: Emergency Medicine Address: [address] [place] [address] Email: [email or web address] Janette Joseph MD Admit Provider Physician Attending Provider Specialty: Internal Medicine Address: [address] [place] [address], [id number] Email: [email or web address] Current Diagnoses Parkinson's disease (02/22/21) Other muscle spasm (02/22/21) Dysphagia, unspecified (02/22/21) Past Medical History (Last Reviewed 02/22/21 @ 23:17 by Jason Govea MD) CHF (congestive heart failure) (Medical) CKD (chronic kidney disease) stage 3, GFR 30-59 ml/min (Medical) GERD (gastroesophageal reflux disease) (Medical) H/O: hysterectomy (Medical) Hallucination (Medical) History of frequent headaches (Medical) Hx of cancer of uterus (Medical) Hx of tooth extraction (Medical) Hx of total knee replacement (Medical) Hypertension (Medical) Osteoarthritis (Medical) Parkinsons disease (Medical) Spondylolysis of cervical region (Medical) Speech-Language Pathology Swallow Evaluation FLAT CUTTER Clinical Swallow Evaluation Start: 02/24/21 14:30 Freq: Status: Active Protocol: Document 02/24/21 14:30 LNK (Rec: 02/24/21 14:44 LNK [id number]) Clinical Swallow Evaluation Session Time Visit Start Time 11:30 Visit Stop Time 12:15 Total Visit Minutes [address] Dickson Reason for Referral dysphagia Setting Assessment Location Outpatient Care Visit Type Note Type Initial evaluation Next Note Type Next Note Type Re-evaluation Patient Information Identification Type Name,Wristband History PER H&P: Ms. Harris is a 75W with PMH Parkinsons disease, CHF, CKD stage 2, HTN who presents with confusion. She lives at a facility. Per staff she was sent because she was concerned she was having a stroke. The patient initially stated she noticed she was trying to write something yesterday and getting the letters mixed up. She was also apparently difficult to understand for others near her . She was having difficulty swallowing earlier today (). She was brought in to the hospital. She was found to have old pills in her mouth. She was admitted with encephalopathy and rigidity. She has been unable to swallow and likely aspirated last night (02/23). She sounded like she had stridor this morning (02/24) and required high flow oxygen to maintain her saturations. A NG tube was placed and she has since received her Parkinson's medication with some improvement. Subjective Observations Pt was in bedside chair talking to herself. She was confused and would become agitated at times, calming when given reassurance. Reported by Patient Current Diet Nothing by mouth Objective Assessment Mental Status Responsive,Cooperative, Confused,Uncooperative Comment Unable to perform complete OME . Oral strength and ROM was reduced with muscular weakness . She was unable to follow directions. When pt was given a PO trial, she opened her mouth minimally and would take in a very small amount of food/liquids. Speech was vey pressed but intelligible Food and Liquid Trials Position During Assessment Slightly reclined Liquids Trialed Ice chips,Thin,[place] Solids Trialed Puree,Dysphagia Mechanical Administration Type Tea spoon,Straw,Dependent feeding Oral Impairment Mildly impaired Oral Phase Comments Pt was able to accept and swallow pureed texture and egg salad (dysphagia mechanical). She was observed to be chewing, but would not open her mouth for inspection of residue. Unsure if pt's teeth were natural or dentures Pharyngeal Impairment Within functional limits Pharyngeal Phase Comments pt did not tolerate touch in order to palpate hyolaryngeal elevation. Observation of laryngeal movement was grossly WFL. Pt coughed with thin liquids. She was able to tolerate nectar thick liquids with a straw. No wet voicing following NTL. Pt refused more than a few teaspoonsful of PO trials. Comment Pt appears to be safe for NTL and a dysphagia mechanical texture. At this time, pt does not appear to be able to take in enough nutrition to meet nutritional or hydration needs . Findings Swallowing Function Oropharyngeal phase dysphagia Severity of Swallow Impairment Moderately-severely impaired Contributing Factors to Swallow Reduced alertness or attention Impairment ,Difficulty following directions,Reduced oral strength/coordination/ sensation,Impaired velopharyngeal closure/ coordination,Impaired airway protection Prognosis Guarded Based on Cognitive status,History of aspiration/aspiration pneumonia,Comorbidities, Duration of symptoms/severity Impact on Safety and Functioning Risk for aspiration,Risk for inadequate nutrition/hydration Recommendations Instrumental Assessment No Frequency F/u 1-2x for safety with PO Recommended Solids Dysphagia Mechanical Recommended Liquids [place] Safety Precautions/Swallowing Supervision needed for all Recommendations meals,Feed only when alert, Reduce distractions,Remain upright (90 degrees) during all oral intake,Upright position at least 30 minutes after meals,Small bites and sips when eating,Slow rate; swallow between bites,Sip by straw only,1 to 1 feeding assistance,Family assistance/ supervision Medication Recommendations Crushed in Carrier Discharge Recommendations [facility] care facility Goals Long-term Goals pt will safely tolerate the least restrictive diet without s/sx aspiration.
[2021-02-24] MEDS: CARBIDOPA-LEVODOPA ER 50/200 TABLET 2 EACH PO (17:41)
[2021-02-24 23:50] VITALS: BP 118/68; PULSE 83; RESP 18; TEMP 36.6; O2SAT 97
[2021-02-25] MEDS: CARBIDOPA LEVODOPA 1 EACH PO ×5 (04:06→20:40)
[2021-02-25 05:49] LABS: Add Manual Diff / Slide Review NO; Basophils Absolute Auto 0 /uL (0-100); Basophils Percent Auto 0.4 % (0-2); Eosinophils Absolute Auto 0 /uL (0-450); Eosinophils Percent Auto 0.1 % (2-4); Hematocrit 30.2 % (36-46); Hemoglobin 9.8 g/dL (12.0-16.0); Lymphocytes Absolute Auto 1400 /uL (1100-4500); Lymphocytes Percent Auto 14.1 % (25-40); Mean Corpuscular HGB Conc 32.4 % (30-36); Mean Corpuscular Hemoglobin 29.8 PG (26-34); Mean Corpuscular Volume 91.9 fL (80-100); Monocytes Absolute Auto 1000 /uL (0-900); Monocytes Percent Auto 9.8 % (3-14); Neutrophils Absolute Auto 7700 /uL (1500-7000); Neutrophils Percent Auto 75.6 % (50-75); Platelet Count 283 X10^3/uL (150-400); Red Blood Cell Count 3.29 X10^6/uL (4.0-5.2); Red Cell Distribution Width 14.5 % (11.6-14.8); White Blood Cell Count 10.2 X10^3/uL (4.5-11.0)
[2021-02-25 05:59] LABS: BUN Creatinine Ratio 22.9 (6-22); Blood Urea Nitrogen 19 mg/dL (7-17); Calcium 8.7 mg/dL (8.4-10.2); Carbon Dioxide 25 mmol/L (22-32); Chloride 106 mmol/L (98-107); Estimated Glomerular Filt Rate > 60.0 mL/min (>60); Glucose 106 mg/dL (80-110); HEMOLYSIS < 15 (0-50); Potassium 3.6 mmol/L (3.4-5.1); Sodium 139 mmol/L (137-145)
[2021-02-25] MEDS: TRAMADOL 50 MG TABLET PO ×3 (07:00→22:16)
[2021-02-25 08:30] VITALS: BP 161/90; PULSE 81; RESP 14; TEMP 36.3; O2SAT 96
[2021-02-25] MEDS: CITALOPRAM 10 MG TABLET 20 MG PO (08:41)
[2021-02-25] MEDS: ROTIGOTINE 2 MG/24 HR 2 EACH TOP (08:41)
[2021-02-25] MEDS: BACLOFEN 10 MG TABLET PO ×3 (08:41→20:40)
[2021-02-25] MEDS: buPROPion 100 MG TABLET PO ×2 (08:41→20:40)
[2021-02-25] MEDS: ENOXAPARIN 40 MG/0.4 ML SYRINGE SUBCUT (08:42)
--- NOTE | 2021-02-25 09:50 | PC.NURSE ---
Per report from assembler 1st shift RN, patient pulled her IV out shortly before shift change. This was the second IV patient has removed during this hospital stay. Hospitalist informed and ok'd no IV access. Dayshift hospitalist informed abx for early intervention specialist where not given, waiting for new orders. BRAYAN
--- NOTE | 2021-02-25 10:10 | OT.IP.EVAL ---
Current Diagnoses Parkinson's disease (02/22/21) Other muscle spasm (02/22/21) Dysphagia, unspecified (02/22/21) Past Medical History (Last Reviewed 02/22/21 @ 23:17 by Jason Govea MD) CHF (congestive heart failure) CKD (chronic kidney disease) stage 3, GFR 30-59 ml/min GERD (gastroesophageal reflux disease) H/O: hysterectomy Hallucination History of frequent headaches Hx of cancer of uterus Hx of tooth extraction Hx of total knee replacement Hypertension Osteoarthritis Parkinsons disease Spondylolysis of cervical region Surgical History (Last Reviewed 02/22/21 @ 23:17 by Jason Govea MD) H/O: hysterectomy Hx of tooth extraction Hx of total knee replacement Occupational Therapy Inpatient Evaluation/Re-Eval M1 PT/OT-IP Prior Functional Status Start: 02/25/21 11:44 Freq: NEEDED Status: Active Protocol: Document 02/25/21 10:40 AB (Rec: 02/25/21 11:58 AB [id number]) Medical Review Prior Functional Status Medical History Reviewed Yes Communication able to answer questions but with confusion Mobility and Gait pt stated that she is modified independent with transfers and ambulation using a 4WW; stated that she lives at [facility] and can ask for assistance if needed but usually, she is able to manage and does not need assistance aside from shower and dressing needs. Activities of Daily Living and IADL's stated that she gets assistance with dressing and shower needs Social History Household Members none Living Arrangements Halfway Facility Number of Stairs To Enter/Railing? Pt lives at [facility] Home Environment Walk in Shower,Built-In Shower Seat Home Equipment Four Wheel Walker,Hand Held Shower,Grab Bars Near Toilet, Grab Bars In Shower M2 OT-IP Current Condition Start: 02/25/21 13:36 Freq: Status: Active Protocol: Document 02/25/21 09:29 [facility] (Rec: 02/25/21 13:56 [facility] [id number]) Occupational Therapy Current Condition Current Condition Evaluation Date 02/25/21 Treatment Diagnosis Encephalopathy,decreased mobility Diagnosis Onset Date 02/22/21 M3 OT- IP Subjective and Pain Start: 02/25/21 13:36 Freq: Status: Active Protocol: Document 02/25/21 09:29 [facility] (Rec: 02/25/21 13:56 [facility] [id number]) OT- Subjective Occupational Therapy Visit Type Type Initial Evaluation Visit Start Time 09:29 Visit Stop Time 10:10 Total Visit Minutes 41 Occupational Therapy Visit Comments Patient Comments Pt's son in the room and pt agreed to get to the recliner. Patient/Caregiver Goals TO get better. OT Pain Assessment Pain When Pain Assessed At Rest Pain Present Pain Present Denied Pain M4 OT- IP ADL's Start: 02/25/21 13:36 Freq: Status: Active Protocol: Document 02/25/21 09:29 [facility] (Rec: 02/25/21 13:56 [facility] [id number]) OT [id number] Comments OT Self-Feeding Comments Not at meal time. OT ADL-Grooming Comments OT Grooming Comments Pt able to wash her face after set-up. OT ADL-Oral Care Comments Oral Care Comments Pt refused to do oral care. OT ADL-Dressing General Eval Lower Body Dressing Ability Total Assistance Areas Needing Assistance Socks OT ADL-Toileting Comments OT Toileting Comments Pt dependent at this time for all toileting needs. OT ADL-Bathing Comments OT Bathing Comments Sponge bath more appropriate at this time. M5 OT- IP IADL's Start: 02/25/21 13:36 Freq: Status: Active Protocol: Document 02/25/21 09:29 [facility] (Rec: 02/25/21 13:56 [facility] [id number]) OT-Instrumental Activities of Daily Living Home Safety Awareness Awareness of Need for Assistance at Home Decreased Awareness Ability to Problem Solve Emergency Unable to Problem Solve Situations Medication Management Medication Management Caregiver Administers Money Management Money Management Caregiver Provides Assistance Meal Preparation Meal Preparation Caregiver Provides Assist Marketing Executive Marketing Executive Caregiver Provides Assist M6 OT- IP Functional Cognition Start: 02/25/21 13:36 Freq: Status: Active Protocol: Document 02/25/21 09:29 [facility] (Rec: 02/25/21 13:56 [facility] [id number]) Cognitive Factors Limiting Selfcare Function Cognitive Ability Level of Alertness Alert Patient Orientation Name Attention Span Ability Capable of Focused Attention, Unable to Sustain Attention Ability to Follow Commands Able to Follow One Step Commands with Increased Time, Able to Follow One Step Commands with Repetition Cognitive Comments Cognitive Assessment Comments Pt needing simple concrete steps to follow and tends to look towards her son for reassurance. M7 OT- IP Mobility and Balance Start: 02/25/21 13:36 Freq: Status: Active Protocol: Document 02/25/21 09:29 [facility] (Rec: 02/25/21 13:56 [facility] [id number]) OT- Bed Mobility Assessment Rolling Type of Rolling Roll to Right Level of Assistance Maximum Assistance Supine to Sit Supine to Sit Assist Maximum Assistance,1 Person Assistance OT-Transfer Assessment Sit to and From Stand Sit to and from Stand Maximum Assistance,2 Person Assistance Transfers Transfer Ability Maximum Assistance,2 Person Assistance Technique Transfer Destination Bed,Chair Transfer Technique Stand Step Pivot Devices Transfer Assistive Devices Gait Belt Comments Mobility Comments MAXA x 1 to get to the edge of the bed by assist from her son to help move her legs to the edge of the bed and get her trunk upright. Pt MAX A X 2 to stand to FWW, pt tends to lean on the bed for support her feet tends to slide forwards and needing her feet blocked when coming to stand with MAX A X2. Pt not able to transfer with FWW and able to stand/squat pivot transfer with MAXA x2. OT- Gait Assessment Comments Gait Ability Comments Not at this time. OT- Balance Assessment Sitting Balance and Reactions Static Sitting Balance Ability Poor Dynamic Sitting Balance Ability Poor Standing Balance and Reactions Static Standing Balance Ability Poor Dynamic Standing Balance Ability Poor Comments Other Balance Tests/Deviations/Treatment Pt close SBA to CGA for : sitting at the edge of the bed . Pt tends to posteriorly lean when on her feet and not able to stand and needing MAX A x2 to stand with poor balance. M9 OT- IP Assessment and Plan Start: 02/25/21 13:36 Freq: Status: Active Protocol: Document 02/25/21 09:29 [facility] (Rec: 02/25/21 13:56 [facility] [id number]) OT Summary Assessment and Plan Potential Rehabilitation Potential Fair Analytic Complexity at Evaluation Moderate Summary OT Impairments Strength,Balance,Functional Cognition,Functional Mobility, Self-Feeding,Grooming,Dressing ,Toileting,Bathing,Toilet Transfers,Shower Transfers, Activity Tolerance Progress Towards Goals Slow Progress due to Medical Issues,Slow Progress due to Activity Tolerance,Slow Progress due to Cognition Assessment Summary Pt MOD complexity and prior needing one person assist for all ADL and mobility needs and now needing two person extensive assist for all needs . Pt would benefit from skilled rehab prior to going home. Goals Grooming Goal Standby Assistance Dressing Goal Moderate Assistance Toileting Goal Moderate Assistance Bathing Goal Moderate Assistance Toilet Transfer Goal Standby Assistance Shower Transfer Goal Minimal Assistance Days to Meet Goals 20 Frequency of Treatment Frequency Of Treatment Once a Day Treatment Plan OT Treatment Plan ADL Training,Functional Cognition Training,Functional Mobility,Patient/Family Education,Discharge Planning Other Treatment Recommendations and Next Transfer to [facility] with MODA X2 Treatment Focus Discharge Recommendations OT Discharge Recommendations SNF Rehab Transportation Needs at Discharge Wheelchair/Cabulance
--- NOTE | 2021-02-25 10:12 | PM.DS.1 ---
History of Present Illness History of Present Illness Date Patient Seen: 02/26/21 Time Patient Seen: 10:12 Chief complaint: muscle rigidity Narrative: Per Dr. Govea, Ms. Harris is a 75W with PMH Parkinsons disease, CHF, CKD stage 2, HTN who presents with confusion. She lives at a facility. Per staff she was sent because she was concerned she was having a stroke. The patient initially stated she noticed she was trying to write something yesterday and getting the letters mixed up. She was also apparently difficult to understand for others near her. She was having difficulty swallowing earlier today. She was brought in to the hospital. She was found to have old pills in her mouth. In the ED, workup was done she was noted to be afebrile, high blood pressure. She did get a trial of swallowing and had a choking episode during which her oxygen saturations dropped to the 80s. She was placed on high flow oxygen. In the ED she was noted to have an episode of spasm of her neck at that same time. She was following commands. There was a question if she had stridor. She was given valium which helped her symptoms. She was admitted. When seen on the floor she was noted to be in distress, jaw spasming, and neck spasming, she had hypertonic muscle and was hyperreflexic. She had no fevers. She was mainting her oyxgen saturation. She was transferred to the ICU. She was given ativan which improved her spasms. NG tube was attempted but unsuccessful. Labs notable for WBC 7.5, Hgb 11.4, creat 0.93. COVID negative. CT head showed no acute process. Chest xray showed no acute process. Her case with discussed with tele-solution specialist physician, and her neurologist was also called. Discharge Providers Provider Date of admission: 02/22/21 17:21 Discharge Date: 02/26/21 Primary care physician: Vale Lopez MD Consults: 02/22/21 19:30 Consult to Speech Therapy Evaluate & Treat Comment: Physician Instructions: Evaluate and treat 02/22/21 22:56 Consult to Tele-solution specialist Routine Comment: Consulting Provider: Daphney [employer] Reason for consultation: [employer] services Has provider been notified: Yes 02/23/21 13:51 Consult to Speech Therapy Evaluate & Treat Comment: Physician Instructions: Evaluate and treat 02/24/21 07:27 Consult to Speech Therapy Evaluate & Treat Comment: Physician Instructions: Evaluate and treat 02/25/21 07:57 Consult to Occupational Therapy Evaluate & Treat Comment: Physician Instructions: Evaluate and treat Consult to Physical Therapy Evaluate & Treat Comment: Physician Instructions: Evaluate and Treat Discharge provider: Mack Dickson DO Summary Hospital Course Discharge Diagnosis: 1. Acute muscle spasticity 2. Acute parkinson's disease 3. Acute dysphagia 4. Acute metabolic encephalopathy, resolving 5. Aspiration pneumonia with acute hypoxemic respiratory failure or bacterial pneumonia, improved. 6. CHF, EF unknown 7. History of TIA 8. CKD stage 2 9. HTN 10. Stridor, resolved 11. Severe Acute on Chronic Protein Calorie Malnutrition? Hospital Course: Ms. Harris is a 75W with [facility] who presented with dysphagia, muscle spasticity, aspiration. She was initially unable to swallow and was started on antibiotic therapy for probable aspiration per the recommendations of the tele solution specialist service here. An NG-tube was placed and her home medications were resumed with gradual improvement in her symptoms. After a few doses of her medications her symptoms dramatically improved. She was able to tolerate a regular diet with thin liquids prior to discharge. She was slightly deconditioned, and was recommended for transfer to a long-term facility for further rehabilitation prior to returning to her previous facility and [place]. No home medication changes were recommended at the time of discharge, although moving forward I do recommend consideration for a PEG tube to avoid possible hospitalization in the future, though this is not urgently needed. She is recommended to complete course of oral antibiotics for presumed aspiration pneumonia with another 3 days of antibiotic therapy after discharge. Time Spent with Patient Time spent: Greater than 30 minutes Exam Vital Signs (past 8 hours): - 02/25/21 08:30 Temperature 97.3 F L Pulse Rate 81 Respiratory Rate 14 Blood Pressure 161/90 H Pulse Oximetry 96 Fraction of Inspired Oxygen 30 Oxygen Delivery Method Room Air Oxygen Flow Rate 0 Narrative Exam Narrative: ?GEN: No acute distress, chronically ill appearing. HEENT: PERRL, moist mucous membranes NECK: trachea midline, no JVD PULM: coarse breath sounds bilaterally CV: tachycardic, no murmurs ABD: soft, nontender, nondistended, no organomegaly EXT: warm and well perfused with no edema NEURO: awake, alert. slurred speech somewhat, but apparently at baseline. follows commands. more mobile today. Objective Labs Result Diagrams: 02/26/21 05:15 02/26/21 05:15 Labs: Laboratory Results - last 24 hr 02/25/21 02/25/21 05:40 05:40 WBC 10.2 RBC 3.29 L Hgb 9.8 L Hct 30.2 L MCV 91.9 MCH 29.8 MCHC 32.4 RDW 14.5 Plt Count 283 Neut % (Auto) 75.6 H Lymph % (Auto) 14.1 L [place] % (Auto) 9.8 Eos % (Auto) 0.1 L Baso % (Auto) 0.4 Neut # (Auto) 7700 H Lymph # (Auto) 1400 [place] # (Auto) 1000 H Eos # (Auto) 0 Baso # (Auto) 0 Sodium 139 Potassium 3.6 Chloride 106 Carbon Dioxide 25 BUN 19 H Creatinine 0.83 Estimated GFR > 60.0 BUN/Creatinine Ratio 22.9 H Glucose 106 Calcium 8.7 PFSH Medical History CHF (congestive heart failure) CKD (chronic kidney disease) stage 3, GFR 30-59 ml/min GERD (gastroesophageal reflux disease) Hallucination History of frequent headaches Hx of cancer of uterus Hypertension Osteoarthritis Parkinsons disease Spondylolysis of cervical region Surgical History H/O: hysterectomy Hx of tooth extraction Hx of total knee replacement Family History Mother Lung cancer Father Myocardial infarction Social History household members: none Smoking Status: Former smoker alcohol intake: never Discharge Plan Discharge Plan Patient Disposition: SNF Transfer to: [facility] Provider Discharge Comment: Patient admitted to the hospital with difficulty swallowing likely due to parkinson's disease. Please consider persuing stomach tube as an outpatient so that if this happens again medications can be given. However, currently was cleared for regular diet and thin liquids with speech therapy today. Discharged on oral antibiotics for 3 days as a precaution for possible aspiration pneumonia. Discharge orders & Medications Prescriptions: New amoxicillin-pot clavulanate 875-125 mg tablet 1 tab PO BID 3 Days Qty: 6 RF: 0 Continued carbidopa-levodopa 25-250 mg Tablet 1 tab PO Q4H RF: 0 carbidopa-levodopa 50-200 mg Tablet Extended Release 2 tab PO QPM RF: 0 acetaminophen 500 mg Tablet 500 mg PO Q6H PRN (Reason: Pain (Scale Score 1-3)) RF: 0 bupropion HCl 100 mg Tablet 100 mg PO BID RF: 0 citalopram 20 mg Tablet 20 mg PO DAILY RF: 0 baclofen 10 mg Tablet 10 mg PO TID RF: 0 carbidopa-levodopa 10-100 mg Tablet 1 tab PO Q8HR PRN (Reason: Parkinsonism) RF: 0 gabapentin 300 mg Capsule 300 mg PO TID RF: 0 furosemide 20 mg Tablet 20 mg PO DAILY RF: 0 trimethobenzamide 300 mg Capsule 300 mg PO Q8HR PRN (Reason: Extrapyramidal Effects/Symptoms) RF: 0 rotigotine 4 mg/24 hour Patch 24 Hour 2 mg TRANSDERMAL DAILY RF: 0 loratadine 10 mg Capsule 10 mg PO DAILY PRN (Reason: Allergy Symptoms) RF: 0 naproxen sodium [Aleve] 220 mg Capsule 220 mg PO Q8H PRN (Reason: Pain (Scale Score 1-3)) RF: 0 levodopa 42 mg Capsule, W/Inhalation Device 84 mg INHALATION 5XD PRN (Reason: Parkinsonism) RF: 0 atorvastatin [Lipitor] 20 mg Tablet 20 mg PO BEDTIME Qty: 30 RF: 0 aspirin 81 mg Tablet,Delayed Release (Dr/Ec) 81 mg PO DAILY Qty: 30 RF: 0 tramadol 50 mg Tablet 50 mg PO DAILY 30 Days Qty: 30 RF: 0 Medication counseling provided by Pharmacist: Yes Follow up/Referrals: Vale Lopez MD [Primary Care Provider] - Discharge Health Status Multidrug resistant organism: No MDRO Precautions: [place] Diet/Activity/Treatments Diet: Diet as Tolerated Activity: As tolerated Discharge Data Primary Care Provider: Vale Lopez
[2021-02-25] MEDS: AMOXICILLIN/CLAV 875/125 MG 1 TAB PO ×2 (10:37→20:40)
--- NOTE | 2021-02-25 10:40 | PT.IIE ---
Current Diagnoses Parkinson's disease (02/22/21) Other muscle spasm (02/22/21) Dysphagia, unspecified (02/22/21) Medical History (Last Reviewed 02/22/21 @ 23:17 by Jason Govea MD) CHF (congestive heart failure) CKD (chronic kidney disease) stage 3, GFR 30-59 ml/min GERD (gastroesophageal reflux disease) Hallucination History of frequent headaches Hx of cancer of uterus Hypertension Osteoarthritis Parkinsons disease Spondylolysis of cervical region Physical Therapy Inpatient Evaluation/Re-Eval M1 PT/OT-IP Prior Functional Status Start: 02/25/21 11:44 Freq: NEEDED Status: Active Protocol: Document 02/25/21 10:40 AB (Rec: 02/25/21 11:58 AB [email or web address]) Medical Review Prior Functional Status Medical History Reviewed Yes Communication able to answer questions but with confusion Mobility and Gait pt stated that she is modified independent with transfers and ambulation using a 4WW; stated that she lives at [facility] and can ask for assistance if needed but usually, she is able to manage and does not need assistance aside from shower and dressing needs. Activities of Daily Living and IADL's stated that she gets assistance with dressing and shower needs Social History Household Members none Living Arrangements Shelter Facility Number of Stairs To Enter/Railing? Pt lives at [facility] Home Environment Walk in Shower,Built-In Shower Seat Home Equipment Four Wheel Walker,Hand Held Shower,Grab Bars Near Toilet, Grab Bars In Shower M2 PT-IP Current Condition Start: 02/25/21 11:44 Freq: NEEDED Status: Active Protocol: Document 02/25/21 10:40 AB (Rec: 02/25/21 11:58 AB [id number]) Physical Therapy Current Condition Current Condition Evaluation Date 02/25/21 Treatment Diagnosis PD; difficulty in walking Onset Date 02/22/21 M3 PT-IP Subjective Start: 02/25/21 11:44 Freq: NEEDED Status: Active Protocol: Document 02/25/21 10:40 AB (Rec: 02/25/21 11:58 AB [email or web address]) Subjective Physical Therapy Visit Type Type Initial Evaluation Visit Start Time 10:40 Visit Stop Time 11:00 Total Visit Minutes 20 Number of QUALITATIVE RESEARCHER Visits 0 Therapy Pain Assessment Pain When Pain Assessed At Rest Pain Present Pain Present Pain Reported Location neck Scale Used pain scale not stated Pain Management Techniques Modification of Treatment,Re- positioning M4 PT-IP Mobility and Gait Start: 02/25/21 11:44 Freq: NEEDED Status: Active Protocol: Document 02/25/21 10:40 AB (Rec: 02/25/21 11:58 AB [email or web address]) PT-Transfer Assessment Sit to and From Stand Sit to and from Stand Maximum Assistance Equipment Transfer Assistive Device Gait Belt,Front Wheeled Walker Orthotic/Prosthetic Devices or Brace: No Comments Mobility Comments pt sitting on chair and agreed to stand up. completed sit to stand max A x 2 and max cues. pt with increase posterior trunk leaning/LOB requiring max A for steadiness . pt also has difficulty following directions. presents with neck/trunk rigidity. pt completed ambulation using FWW ~ 3 ft max A x 2 and max cues and chair follow. demonstrated decrease step length and requires assist with weight shifting and FWW management. pt stated that she wants it finished and refused more activity. positioned pt on chair total Ax 2. chair alarm funeral professional light and table placed within reach. Gait Assessment Gait Gait Assistance Required: Maximum Assistance,2 Person Assist Distance (Feet) 3 Able to Maintain Weight Bearing Status No During Gait Assistive Devices Assistive Device Gait Belt,Front Wheeled Walker Orthotic/Prosthetic Devices or Brace: No Gait Deviations General Gait Pattern Ataxic,Decreased Stride Length ,Decreased Feet Clearance,Step -to Gait Factors Limiting Gait Function Factors Limiting Gait Function Abnormal Tonal Influences, Decreased Activity Tolerance, Decreased Strength,Difficulty Following Directions, Incoordination,Limited Range of Motion,Pain,Poor Balance, Poor Safety Awareness PT-Balance Assessment Sitting Balance and Reactions Static Sitting Balance Ability Poor Dynamic Sitting Balance Ability Poor Standing Balance and Reactions Static Standing Balance Ability Poor Dynamic Standing Balance Ability Poor Device Used FWW M5 PT-IP Objective Assessments Start: 02/25/21 11:44 Freq: NEEDED Status: Active Protocol: Document 02/25/21 10:40 AB (Rec: 02/25/21 11:58 AB [email or web address]) Orientation Orientation/Cognition Level of Alertness Confusional State Orientation Name Safety Awareness Decreased Safety Awareness Memory Description Short Term Impaired Strength Lower Extremity Strength Assessment Bilaterally Impaired Hip 3+/5 Knee 4-/5 Muscle Tone Muscle Tone WNL No Other Assessments Other Other Assessments cervical/trunk rigidity M6 PT-IP Treatment Start: 02/25/21 11:44 Freq: NEEDED Status: Active Protocol: Document 02/25/21 10:40 AB (Rec: 02/25/21 11:58 AB [email or web address]) Physical Therapy Treatment Education Education Provided Safety M7 PT-IP Assessment and Plan Start: 02/25/21 11:44 Freq: NEEDED Status: Active Protocol: Document 02/25/21 10:40 AB (Rec: 02/25/21 11:58 AB [email or web address]) PT Summary Assessment and Plan Potential Rehabilitation Potential Fair Status of Condition at Evaluation Evolving Summary Impairments Pain,ROM,Strength,Balance, Coordination,Sensation,Tone, Cognition,Bed Mobility, Transfers,Gait,Activity Tolerance Assessment Summary pt requiring max A x 2 and max cues and will require 24/7 assist available for safe d/c home. pt will require SNF rehab to improve strength and mobility independence. Goals Bed Mobility Goal Minimal Assistance Transfer Goal Minimal Assistance,Front Wheeled Walker Gait Goal Minimal Assistance,Front Wheel Walker Gait Distance 50 Other Goals improve bed mobility SBA, transfers CGA, ambulation CGA FWW 75 ft Days to Meet Goals 10 Frequency of Treatment Frequency Of Treatment Once a Day Treatment Plan Physical Therapy Treatment Plan Bed Mobility Training,Transfer Training,Gait Training, Therapeutic Exercise,Balance Retraining,Discharge Planning, Hot or Cold Pack,Neuromuscular Re-ed,Coordination Retraining ,Manual Therapy Precautions Other Precautions falls Recommendations To Nursing Amount of Assist Needed Mechanical Lift Discharge Recommendations PT Discharge Recommendations SNF Rehab Transportation Needs at Discharge Wheelchair/Cabulance
--- NOTE | 2021-02-25 10:43 | CM.DPNOTE ---
DCP Note Dr Dickson has placed the DC order back to [facility] this morning. Patient much improved this morning, had a good night, much more alert; BRIDGE WORKER is advancing diet. Spoke w/patient and son Erasmo at bedside this morning. Both patient/son hopeful patient can return home ([facility]) this afternoon, son to transport. PT/OT evals pending this morning. Patient appears to be quite deconditioned, unsure if [facility] will be able to accommodate today? Son says he hopes to have the SNF in [place] secured within the next to weeks, at that time patient can move out of [facility] and closer to him for longterm care. PLaced call to [facility] [phone]; explained patient now has a DC order. Margarita, Glassblower explained their RN is on vacation and so she and the Tr[employer]ppings will need to discuss the plan for the day. Transferred call to BERLIN Lopez for further discussion re: patient's current care needs Meanwhile, discussing this referral w/October/Annetta. Awaiting further communication from [facility] and [facility] for this patient's DC today JW
--- NOTE | 2021-02-25 11:29 | ST.IPDYTX ---
Visit Care Team Role Provider Type Vale Lopez MD Primary Care Provider Physician Specialty: Internal Medicine Address: [address] [place] [address] Email: [email or web address] Cleopatra August MD Other Providers Physician Specialty: Medical Address: Phone: Fax: Email: Maria C Owens MD Other Providers Physician Specialty: Medical Address: Phone: Fax: Email: Regine Tejada MD Other Providers Physician Specialty: Medical Address: Phone: Fax: Email: Bryce Topete MD Other Providers Physician Specialty: Medical Address: Phone: Fax: Email: Laura Denny MD Other Providers Physician Specialty: Medical Address: Phone: Fax: Email: Teddy Albrecht MD Other Providers Physician Specialty: Medical Address: Phone: Fax: Email: Kenny Byrd MD Other Providers Physician Specialty: Medical Address: Phone: Fax: Email: Sharath Wallace MD Other Providers Physician Specialty: Medical Address: Phone: Fax: Email: Tito Tejada MD Other Providers Physician Specialty: Medical Address: Phone: Fax: Email: Paul Orellana MD Other Providers Physician Specialty: Medical Address: Phone: Fax: Email: Jamaal Mix MD Other Providers Physician Specialty: Medical Address: Phone: Fax: Email: Teddy Greenwood DO Emergency Provider Physician Referring Provider Specialty: Emergency Medicine Address: [address] [place] [address] Email: [email or web address] Joseph MD Admit Provider Physician Attending Provider Specialty: Internal Medicine Address: [address] [place] [address] Email: [email or web address] POSTBED STITCHER Dysphagia Treatment POSTBED STITCHER Dysphagia Treatment Start: 02/24/21 14:30 Freq: Status: Active Protocol: Document 02/25/21 09:20 ZS (Rec: 02/25/21 09:29 ZS [id number]) Dysphagia Treatment Session Time Visit Start Time 08:50 Visit Stop Time 09:05 Total Visit Minutes 15 Setting Assessment Location Acute Care Visit Type Note Type Re-Evaluation Next Note Type Next Note Type Treatment Note Patient Information Identification Type Name,ID Wristband Subjective Observations Faye was awake, alert, and seated upright in her bed eating her morning meal when the clinician arrived. Her son was present and they were engaged in conversation. Faye had eaten most of her breakfast and continued to take bites of different foods during assessment. Faye will likely discharge today and return to the facility she was previously living at, per case fitter. Treatment Liquids Trialed Thin Solids Trialed Regular Administration Type Tea Spoon,Straw,Self-Feeding Oral Strategies Upright at 90 degrees Pharyngeal Strategies Sitting Upright (90 deg),Small Bites and Sips Treatment Activities Trialed single sips of thin water through a straw x4. Trialed pears x1 and merline cracker x4. Observed Faye eat yogurt x3 and eggs x2 and drink nectar thick orange juice x2. Assessment Patient Response to Treatment Excellent Rehab Potential Excellent Assessment of Improvement Faye exhibited no signs or symptoms of aspiration on any trials of thin liquid. She exhibited one instance of a weak cough following a bite of merline cracker and independently drank some nectar thick orange juice to clear. No difficulty with successive trials of merline crackers. No signs or sypmtoms of aspiration on pears, eggs, yogurt, or orange juice. Diet Recommendations Recommendations Upgrade Diet Order Liquids Order Thin Diet Order Regular Medication Recommendations As Tolerated Aspiration Precautions Recommended Precautions Upright at 90 Degrees,Small Bites/Sips Treatment Plan Appropriate for Continued Therapy Yes Therapy Recommendations Continued monitoring of diet to maintain safety with PO intake. Dysphagia Goals Faye will safely tolerate least restrictive diet to meet her nutrition and hydration needs.
[2021-02-25 12:51] VITALS: O2SAT 97
--- NOTE | 2021-02-25 14:11 | CM.DPC ---
Addendum entered by ANGLE Redding 02/25/21 16:10: ADD: Spoke /October at [facility]. She anticipates they can accept patient for admission tomorrow as long as patient has a good night this evening w/no agitation or confusion. Updated son Erasmo and he is agreeable. States he will have SNF in [place] secured within the next two weeks. Will plan to follow DCP coordination closely, anticipate DC to SNF tomorrow. Patient will need to being her own home Levo inhaler if she/family want her to have at SNF. SNF pharmacy cannot fill this. JW Original Note: DCP: This senior planner is assisting ANGLE Cheung Sammying Machine Operator in finding a skilled facility for patient before she can go back to [facility]. Called [facility], and they have no beds. Called [facility], spoke to Andie, she will review, but no admissions over the week-end. Spoke to Chayito at [facility], she will review. Let her know that patient is stable for discharge if they can take her today. Also, let her know that the plan is for her to return to [facility] when she is stronger. P: DCP to attempt to locate facility, Chayito will review, possibly for today. Richelle Infante RN/Sammying Machine Operator
--- NOTE | 2021-02-25 14:57 | P.PN_ITS ---
Subjective Subjective Interval history: Patient denies complaints today. No chest pain, shortness of breath. Much more active today. Still recommended for SNF rehab, [facility] to returning. Planning on discharge to [facility] hopefully tomorrow. Exam Vital Signs (past 8 hours): - 02/25/21 08:30 02/25/21 12:51 Temperature 97.3 F L Pulse Rate 81 Respiratory Rate 14 Blood Pressure 161/90 H Pulse Oximetry 96 97 Fraction of Inspired Oxygen 30 Oxygen Delivery Method Room Air Oxygen Flow Rate 0 Narrative Exam Narrative: ?GEN: No acute distress, chronically ill appearing. HEENT: PERRL, moist mucous membranes NECK: trachea midline, no JVD PULM: coarse breath sounds bilaterally CV: tachycardic, no murmurs ABD: soft, nontender, nondistended, no organomegaly EXT: warm and well perfused with no edema NEURO: awake, alert. slurred speech somewhat, but apparently at baseline. follow s commands. more mobile today. Objective Labs Result Diagrams: 02/25/21 05:40 02/25/21 05:40 Labs: Laboratory Results - last 24 hr 02/25/21 02/25/21 05:40 05:40 WBC 10.2 RBC 3.29 L Hgb 9.8 L Hct 30.2 L MCV 91.9 MCH 29.8 MCHC 32.4 RDW 14.5 Plt Count 283 Neut % (Auto) 75.6 H Lymph % (Auto) 14.1 L Hendricks % (Auto) 9.8 Eos % (Auto) 0.1 L Baso % (Auto) 0.4 Neut # (Auto) 7700 H Lymph # (Auto) 1400 Hendricks # (Auto) 1000 H Eos # (Auto) 0 Baso # (Auto) 0 Sodium 139 Potassium 3.6 Chloride 106 Carbon Dioxide 25 BUN 19 H Creatinine 0.83 Estimated GFR > 60.0 BUN/Creatinine Ratio 22.9 H Glucose 106 Calcium 8.7 PFSH Medical History CHF (congestive heart failure) CKD (chronic kidney disease) stage 3, GFR 30-59 ml/min GERD (gastroesophageal reflux disease) Hallucination History of frequent headaches Hx of cancer of uterus Hypertension Osteoarthritis Parkinsons disease Spondylolysis of cervical region Surgical History H/O: hysterectomy Hx of tooth extraction Hx of total knee replacement Family History Mother Lung cancer Father Myocardial infarction Social History household members: none Smoking Status: Former smoker alcohol intake: never Assessment & Plan Assessment & Plan narrative: Ms. Harris is a 75W with PMH parkison's presenting with dysphagia, muscle spasticity, aspiration. She is much improved after resuming her home medications. 1. Acute muscle spasticity -etiology sinemet withdrawal -improvement after NG tube. Cleared by speech for diet today. Resumed home medications. 2. Acute parkinson's disease -as above. Now resumed home medications via PO route. Symptoms improved after giving sinemet via NG tube. 3. Acute dysphagia -swallow evaluation, if patient more relaxed reattempt NG tube, but will need discussion about if PEG within goals of care -Speech eval for swallow function appreciated. Now cleared for regular diet today with thin liquids. -discussed with her son. She has had recurrent issues of spasticity which usually responds to restarting her medications -IF she needed a PEG to get her medications, he would support that as well. 4. 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 Aspiration pneumonitis with acute hypoxemic respiratory failure and possible aspiration or bacterial pneumonia, improved. -no fever, leukocytosis currently, no infiltrated on xray -discussed with the Tele ICU, given her stridor, hypoxia he recommended starting Unasyn -Unasyn started, continue course for possible bacterial pneumonia with augmentin for total 7 day therapy. 6. CHF, EF unknown -not in exacerbation currently. No indication for TTE this admission. 7. History of TIA -continue aspirin, statin 8. CKD stage 2 -creatinine appears near baseline, 0.93 -monitor 9. HTN -very hypertensive during epsidoes of distress, now somewhat improved. -attempt to control spasticity -prn lopressor as needed 10. Stridor, resolved -CT of neck reveals no epiglottis or airway obstruction -patient recieved racemic epi without improvement -started Decadron 4mg IV q6 initially, discontineud today. 11. Severe Acute on Chronic Protein Calorie Malnutrition? - r27% unintentional weight loss in 1y (severe), pt c Parkinsons having trouble c medication management leading to rigid body state, pt with difficulty self- feeding at high risk for continued poor POs meeting <50% of needs. Interventions:? 1. Recc uncomplicated meal tray with 1:1 cuing for nourishments with small, slow bites. 2. Recc ONS Ensure Enlive made pudding thick bid for potentially easier consumption to replete nutrition status - malnutrition places patient at high risk for complications from infection CODE: DNR/DNI, has signed POLST form from facility Dispo: stable for transfer to SNF, pending bed availability . Time Spent With Patient Critical Care time: I spent a total of [] minutes of critical care time on this patient's care today; this time is exclusive of procedural time.
[2021-02-25 16:31] VITALS: BP 172/99; PULSE 93; RESP 19; TEMP 36.9; O2SAT 96
[2021-02-25] MEDS: CARBIDOPA-LEVODOPA ER 50/200 TABLET 2 EACH PO (18:30)
[2021-02-26] VITALS: BP 162/87; PULSE 88; RESP 24; TEMP 36.7; O2SAT 96
[2021-02-26] MEDS: PSEUDOEPHEDRINE 30 MG TABLET PO (00:12)
[2021-02-26] MEDS: CARBIDOPA LEVODOPA 1 EACH PO ×4 (00:12→11:48)
[2021-02-26 05:48] LABS: Add Manual Diff / Slide Review NO; Basophils Absolute Auto 0 /uL (0-100); Basophils Percent Auto 0.1 % (0-2); Eosinophils Absolute Auto 0 /uL (0-450); Eosinophils Percent Auto 0.1 % (2-4); Hematocrit 31.4 % (36-46); Hemoglobin 10.2 g/dL (12.0-16.0); Lymphocytes Absolute Auto 1500 /uL (1100-4500); Lymphocytes Percent Auto 16.6 % (25-40); Mean Corpuscular HGB Conc 32.4 % (30-36); Mean Corpuscular Hemoglobin 29.8 PG (26-34); Mean Corpuscular Volume 92.1 fL (80-100); Monocytes Absolute Auto 1100 /uL (0-900); Monocytes Percent Auto 12.1 % (3-14); Neutrophils Absolute Auto 6600 /uL (1500-7000); Neutrophils Percent Auto 71.1 % (50-75); Platelet Count 271 X10^3/uL (150-400); Red Blood Cell Count 3.41 X10^6/uL (4.0-5.2); Red Cell Distribution Width 14.3 % (11.6-14.8); White Blood Cell Count 9.3 X10^3/uL (4.5-11.0)
[2021-02-26 05:57] LABS: BUN Creatinine Ratio 16.3 (6-22); Blood Urea Nitrogen 13 mg/dL (7-17); Calcium 8.8 mg/dL (8.4-10.2); Carbon Dioxide 29 mmol/L (22-32); Chloride 107 mmol/L (98-107); Estimated Glomerular Filt Rate > 60.0 mL/min (>60); Glucose 96 mg/dL (80-110); HEMOLYSIS < 15 (0-50); Potassium 3.5 mmol/L (3.4-5.1); Sodium 141 mmol/L (137-145)
[2021-02-26 07:35] VITALS: O2SAT 96
[2021-02-26 08:00] VITALS: BP 176/97; PULSE 79; RESP 16; TEMP 36; O2SAT 93
[2021-02-26] MEDS: ROTIGOTINE 2 MG/24 HR 2 EACH TOP (09:29)
[2021-02-26] MEDS: AMOXICILLIN/CLAV 875/125 MG 1 TAB PO (09:29)
[2021-02-26] MEDS: buPROPion 100 MG TABLET PO (09:29)
[2021-02-26] MEDS: CITALOPRAM 10 MG TABLET 20 MG PO (09:29)
[2021-02-26] MEDS: BACLOFEN 10 MG TABLET PO (09:30)
[2021-02-26] MEDS: ENOXAPARIN 40 MG/0.4 ML SYRINGE SUBCUT (09:30)
--- NOTE | 2021-02-26 10:11 | PC.NURSE ---
Pt rested well overnight. Woke Pt at 0745 for vitals and assessment. Pt oriented to self, age, birthday and year. Daughter Albertina arrived soon after and Pt became more alert and interactive-joking and laughing with staff and daughter. 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 Pt is calm and pleasant. Does not attempt to get out of bed without assistance. Spoke with Pt's daughter Albertina about what her normal baseline was and Albertina stated that she was probably at 70% of her normal baseline for cognition and that her current mobility is probably going to be her new baseline as her Parkinsons progresses. Pt denies pain, nausea, or shortness of breath. Was able to take meds and eat half of her breakfast. Bed alarm on for safety. Pt agrees to call for assistance as needed.
[2021-02-26 10:57] LABS: COVID19 - ADMIT (NP swab/PCR) Negative (Negative)
--- NOTE | 2021-02-26 11:10 | PT.IPTN ---
Current Diagnoses Parkinson's disease (02/22/21) Other muscle spasm (02/22/21) Dysphagia, unspecified (02/22/21) Physical Therapy Treatment Note M2 PT-IP Current Condition Start: 02/25/21 11:44 Freq: NEEDED Status: Active Protocol: Document 02/25/21 10:40 AB (Rec: 02/25/21 11:58 AB [id number]) Physical Therapy Current Condition Current Condition Evaluation Date 02/25/21 Treatment Diagnosis PD; difficulty in walking Onset Date 02/22/21 M3 PT-IP Subjective Start: 02/25/21 11:44 Freq: NEEDED Status: Active Protocol: Document 02/26/21 11:10 AB (Rec: 02/26/21 12:49 AB [email or web address]) Subjective Physical Therapy Visit Type Type Treatment Note Visit Start Time 11:10 Visit Stop Time 11:25 Total Visit Minutes 15 Number of BATH HOUSE ATTENDANT Visits 0 M4 PT-IP Mobility and Gait Start: 02/25/21 11:44 Freq: NEEDED Status: Active Protocol: Document 02/26/21 11:10 AB (Rec: 02/26/21 12:49 AB [email or web address]) PT-Transfer Assessment Sit to and From Stand Sit to and from Stand Maximum Assistance,2 Person Assistance,Use of Upper Extremities Equipment Transfer Assistive Device Gait Belt,Front Wheeled Walker Orthotic/Prosthetic Devices or Brace: No Comments Mobility Comments pt sitting on chair and agreed to do PT. BP: 131/78. completed sit to stand max Ax 2 and max cues. max A x 2 for standing balance. presents with increase rigidity, stooped posture and difficulty following directions. pt tolerated 3 sec of standing and stated that she has to sit down. pt rested and completed sit to stand again max A x 2 and max cues and tolerated ~ 15 sec of standing max A x 2 and max cues using FWW for support. pt refused ambulation. positioned back on chair. call light and table placed within reach. M5 PT-IP Objective Assessments Start: 02/25/21 11:44 Freq: NEEDED Status: Active Protocol: Document 02/25/21 10:40 AB (Rec: 02/25/21 11:58 AB [id number]) Orientation Orientation/Cognition Level of Alertness Confusional State Orientation Name Safety Awareness Decreased Safety Awareness Memory Description Short Term Impaired Strength Lower Extremity Strength Assessment Bilaterally Impaired Hip 3+/5 Knee 4-/5 Muscle Tone Muscle Tone WNL No Other Assessments Other Other Assessments cervical/trunk rigidity M6 PT-IP Treatment Start: 02/25/21 11:44 Freq: NEEDED Status: Active Protocol: Document 02/26/21 11:10 AB (Rec: 02/26/21 12:49 AB [id number]) Physical Therapy Treatment Education Education Provided Safety M7 PT-IP Assessment and Plan Start: 02/25/21 11:44 Freq: NEEDED Status: Active Protocol: Document 02/26/21 11:10 AB (Rec: 02/26/21 12:49 AB [email or web address]) PT Summary Assessment and Plan Potential Rehabilitation Potential Fair Summary Impairments Pain,ROM,Strength,Balance, Coordination,Sensation,Tone, Cognition,Bed Mobility, Transfers,Gait,Activity Tolerance Progress Towards Goals Slow Progress due to Medical Issues,Slow Progress due to Activity Tolerance Assessment Summary pt continues to require max A x 2 for standing and unable to tolerate much activity. pt will require SNF rehab to improve strength and independence. Goals Bed Mobility Goal Minimal Assistance Transfer Goal Minimal Assistance,Front Wheeled Walker Gait Goal Minimal Assistance,Front Wheel Walker Gait Distance 50 Other Goals improve bed mobility SBA, transfers CGA, ambulation CGA FWW 75 ft Days to Meet Goals 10 Frequency of Treatment Frequency Of Treatment Once a Day Treatment Plan Physical Therapy Treatment Plan Bed Mobility Training,Transfer Training,Gait Training, Therapeutic Exercise,Balance Retraining,Discharge Planning, Hot or Cold Pack,Neuromuscular Re-ed,Coordination Retraining ,Manual Therapy Precautions Other Precautions falls Recommendations To Nursing Amount of Assist Needed Mechanical Lift Discharge Recommendations PT Discharge Recommendations SNF Rehab Transportation Needs at Discharge Wheelchair/Cabulance
--- NOTE | 2021-02-26 11:12 | OT.IP.TRT ---
Current Diagnoses Parkinson's disease (02/22/21) Other muscle spasm (02/22/21) Dysphagia, unspecified (02/22/21) Occupational Therapy Treatment Note M2 OT-IP Current Condition Start: 02/25/21 13:36 Freq: Status: Active Protocol: Document 02/25/21 09:29 [facility] (Rec: 02/25/21 13:56 [facility] [id number]) Occupational Therapy Current Condition Current Condition Evaluation Date 02/25/21 Treatment Diagnosis Encephalopathy,decreased mobility Diagnosis Onset Date 02/22/21 M3 OT- IP Subjective and Pain Start: 02/25/21 13:36 Freq: Status: Active Protocol: Document 02/26/21 11:45 [facility] (Rec: 02/26/21 11:53 [facility] [id number]) OT- Subjective Occupational Therapy Visit Type Type Treatment Note Visit Start Time 09:15 Visit Stop Time 11:12 Total Visit Minutes 38 Notes Pt seen for split treatment [id number] and [id number]. Pt's daughter in the room for first part of OT session. Occupational Therapy Visit Comments Patient/Caregiver Goals TO get better. OT Pain Assessment Pain When Pain Assessed At Rest Pain Present Pain Present Denied Pain M4 OT- IP ADL's Start: 02/25/21 13:36 Freq: Status: Active Protocol: Document 02/26/21 11:45 [facility] (Rec: 02/26/21 11:53 [facility] [id number]) OT [id number] Comments OT Self-Feeding Comments Pt mainly eating items with her hands and stating that she was eating sausage when she had c[place]de[place] toast in her mouth. OT ADL-Grooming General Evaluation Areas Needing Assistance Combing/Brushing Hair Comments OT Grooming Comments Nursing aid assist with her hair. OT ADL-Dressing General Eval Lower Body Dressing Ability Total Assistance Areas Needing Assistance Socks OT ADL-Toileting Comments OT Toileting Comments Pt dependent at this time for all toileting needs. OT ADL-Bathing Comments OT Bathing Comments Sponge bath more appropriate at this time. M5 OT- IP IADL's Start: 02/25/21 13:36 Freq: Status: Active Protocol: Document 02/25/21 09:29 [facility] (Rec: 02/25/21 13:56 [facility] [id number]) OT-Instrumental Activities of Daily Living Home Safety Awareness Awareness of Need for Assistance at Home Decreased Awareness Ability to Problem Solve Emergency Unable to Problem Solve Situations Medication Management Medication Management Caregiver Administers Money Management Money Management Caregiver Provides Assistance Meal Preparation Meal Preparation Caregiver Provides Assist Documentation Manager Documentation Manager Caregiver Provides Assist M6 OT- IP Functional Cognition Start: 02/25/21 13:36 Freq: Status: Active Protocol: Document 02/26/21 11:45 [facility] (Rec: 02/26/21 11:53 [facility] [id number]) Cognitive Factors Limiting Selfcare Function Cognitive Ability Level of Alertness Alert Patient Orientation Name Attention Span Ability Capable of Focused Attention, Unable to Sustain Attention Ability to Follow Commands Able to Follow One Step Commands with Increased Time, Able to Follow One Step Commands with Repetition Cognitive Comments Cognitive Assessment Comments Pt less anxious today and able to be redirected easily to be able to follow commands. M7 OT- IP Mobility and Balance Start: 02/25/21 13:36 Freq: Status: Active Protocol: Document 02/26/21 11:45 [facility] (Rec: 02/26/21 11:53 [facility] [id number]) OT- Bed Mobility Assessment Rolling Type of Rolling Roll to Right Level of Assistance Moderate Assistance Supine to Sit Supine to Sit Assist Maximum Assistance,1 Person Assistance OT-Transfer Assessment Sit to and From Stand Sit to and from Stand Maximum Assistance,2 Person Assistance Transfers Transfer Ability Maximum Assistance,2 Person Assistance Technique Transfer Destination Bed,Chair Transfer Technique Stand Pivot Devices Transfer Assistive Devices Gait Belt Comments Mobility Comments MODA to help get her legs to the edge of the bed and to assist to get her trunk upright. MAX AX 2 to stand to FWW and pt posterior leans and her feet tend to want to slide out in front of her. Therefore able to do standpivot transfer to the right with nursing aid MAX AX 2. Suggested best to use lauren on pt for now. OT- Gait Assessment Comments Gait Ability Comments Not at this time. OT- Balance Assessment Sitting Balance and Reactions Static Sitting Balance Ability Fair Dynamic Sitting Balance Ability Poor Standing Balance and Reactions Static Standing Balance Ability Poor Dynamic Standing Balance Ability Poor Comments Other Balance Tests/Deviations/Treatment Pt able to sit at edge of the : bed after set-up with SBA for several minutes. M9 OT- IP Assessment and Plan Start: 02/25/21 13:36 Freq: Status: Active Protocol: Document 02/26/21 11:45 [facility] (Rec: 02/26/21 11:53 [facility] [id number]) OT Summary Assessment and Plan Potential Rehabilitation Potential Fair Analytic Complexity at Evaluation Moderate Summary OT Impairments Strength,Balance,Functional Cognition,Functional Mobility, Self-Feeding,Grooming,Dressing ,Toileting,Bathing,Toilet Transfers,Shower Transfers, Activity Tolerance Progress Towards Goals Slow Progress due to Medical Issues,Slow Progress due to Activity Tolerance,Slow Progress due to Cognition Assessment Summary Pt still needing extensive assist for all ADL and mobility needs however improving to MODA for bed mobility from MAX A yesterday. Pt is pleasant and motivated to get better. However pt at times needs a little encouragement and reassurance that she is doing well. Goals Grooming Goal Standby Assistance Dressing Goal Moderate Assistance Toileting Goal Moderate Assistance Bathing Goal Moderate Assistance Toilet Transfer Goal Standby Assistance Shower Transfer Goal Minimal Assistance Days to Meet Goals 20 Frequency of Treatment Frequency Of Treatment Once a Day Treatment Plan OT Treatment Plan ADL Training,Functional Cognition Training,Functional Mobility,Patient/Family Education,Discharge Planning Other Treatment Recommendations and Next [place] [facility] [place] Treatment Focus Discharge Recommendations OT Discharge Recommendations SNF Rehab Transportation Needs at Discharge Wheelchair/Cabulance
[2021-02-26] MEDS: TRAMADOL 50 MG TABLET PO (11:48)
--- NOTE | 2021-02-26 12:34 | PC.NURSE ---
Pt is ready for discharge to SNF. Report called to Evangelina SLADE-all questions answered. Pt and Daughter Albertina aware she will be transferring to [facility].
--- NOTE | 2021-02-26 13:10 | CM.DPNOTE ---
DC Note Patient continues to improve, had a restful night according to BERLIN Xiao. Therapies continue to recommend SNF Reviewed plan /October at [facility]; patient can admit today NITISH MASON updated, nurse to nurse report called to P# [phone], updated/ completed and signed med list faxed to [facility], Tramadol Rx included in packet, and completed PASRR faxed to [facility]. Patient and son Erasmo remain agreeable to plan. P/u was approx 1300. In addition: As this [employer] updated son/DPOA Erasmo, explained that his sister Ninoska had been at patient's bedside this morning and patient had been responding very well. Erasmo explained that he and other family members have placed a restraining order on dtr Ninoska as she is mentally unstable and was recently released from senior care for assault. Erasmo suggests this is part of the motivation in moving his mother to ID. Updated BERLIN Xiao w/above information. According to RN- Patient's mentation has greatly improved today, and patient did not request dtr be removed from her chart or patient room today. Patient being wheeled out via w/c when son Erasmo brought this to staff's attention. Requested, via email, that admitting add son/DANIELLE Stephenian to patient's contacts. Plan: DC to [facility] via w/c today. Patient discharged to SNF with the home meds that family brought in upon arrival to . BOY
--- NOTE | 2021-02-26 13:12 | PC.NURSE ---
Pt out via w/c by [facility] personnel with all belongings including home meds. [facility] aware that meds are being sent with Pt.
--- NOTE | 2021-03-01 16:23 | PC.NURSE ---
Late entry: Addendum to JUL-- for the administration of Valium, only 1mg was given IV of the 2mg ordered due to nursing judgment and the patients oxygenation requirements.
== END 2021-02-26 13:16 | DRG 555 ==
LOC: ED 17:05 → AC 17:22 → ICU 20:28 → AC 02-24 22:28
PROVIDERS: Internal Medicine; Admitting Provider Internal Medicine; Emergency Provider Emergency Medicine; PCP Internal Medicine; Referring Provider Emergency Medicine; Visit Provider Internal Medicine
DX: M62.838 Other muscle spasm (principal); J69.0 Pneumonitis due to inhalation of food and vomit; J96.01 Acute respiratory failure with hypoxia; G93.41 Metabolic encephalopathy; E43 Unspecified severe protein-calorie malnutrition; G20 Parkinson's disease; I11.0 Hypertensive heart disease with heart failure; R13.10 Dysphagia, unspecified; T42.8X5A Adverse effect of antiparkinsonism drugs and other central muscle-tone depressants, initial encounter; Z68.22 Body mass index [BMI] 22.0-22.9, adult; Z20.822 Contact with and (suspected) exposure to COVID-19; Z87.891 Personal history of nicotine dependence; Z86.73 Personal history of transient ischemic attack (TIA), and cerebral infarction without residual deficits; Z66 Do not resuscitate
CPT/HCPCS: 36415; 70450; 70491; 71045; 80048; 82550; 83605; 83880; 84145; 85025; 87040; 87635; 87797; 92526; 92610; 93005; 93010; 94640; 94760; 94762; 96361; 96374; 96375; 97162; 97166; 97530; 97535; 99284; C9803; J0295; J1100; J1650; J2060; J3360; J3490